=== PATIENT | female | born 1955 | race Asian ===

== ENCOUNTER → 2020-11-03 09:54 | Outpatient (BNVA) | payer MEDICARE, MEDICAID, SELFPAY | PROVIDERS: PCP Internal Medicine; Referring Provider Internal Medicine; Visit Provider Student in an Organized Health Care Education/Training Program | DX: M06.00 Rheumatoid arthritis without rheumatoid factor, unspecified site (principal); M81.0 Age-related osteoporosis without current pathological fracture; Z79.899 Other long term (current) drug therapy | CPT/HCPCS: 96402; 99212 ==

== ENCOUNTER 2021-01-17 10:36 | Outpatient (REF) | payer MEDICARE, SELFPAY ==
[2021-01-17 11:35] LABS: MANUAL DIFF FLAG NO
[2021-01-17 11:39] LABS: Basophils Percent Auto 0.6 % (0-2); Eosinophils Absolute Auto 0.1 X10*3/uL (0.0-0.4); Eosinophils Percent Auto 3.6 % (0-4); Hematocrit 38.9 % (37-47); Hemoglobin 12.8 g/dl (12.0-16.0); Imm Gran Abs Auto 0.01 X10*3/uL (0.00-0.03); Imm Gran Pct Auto 0.3 % (0.0-0.4); Lymphocytes Absolute Auto 0.8 X10*3/uL (1.2-4.9); Lymphocytes Percent Auto 23.7 % (20-40); Mean Corpuscular HGB Conc 32.9 g/dl (31.0-35.0); Mean Corpuscular Hemoglobin 33.6 pg (27.0-33.0); Mean Corpuscular Volume 102.1 fL (80-98); Monocytes Absolute Auto 0.4 X10*3/uL (0.1-1.2); Monocytes Percent Auto 10.8 % (2-11); Platelet Count 256 X10*3/uL (160-400); Red Blood Count 3.81 X10*6/uL (4.20-5.50); Red Cell Distribution Width 13.4 % (11.0-16.0); White Blood Count 3.3 X10*3/uL (4.8-10.8)
[2021-01-17 12:11] LABS: Alanine Aminotransferase 15 U/L (0-31); Albumin Level 4.6 g/dL (3.5-5.0); Alkaline Phosphatase 49 U/L (39-117); Anion Gap 10 (12-20); Aspartate Amino Transferase 22 U/L (5-31); Bilirubin Total 0.5 mg/dL (0.0-1.0); Blood Urea Nitrogen 15 mg/dL (9-16); C Reactive Protein 0.02 mg/dL (< or = 0.50); Calcium 9.2 mg/dL (8.4-10.2); Carbon Dioxide 29 mmol/L (22-29); Chloride 106 mmol/L (96-108); Estimated Glomerular Filt Rate > 60; Glucose Random 87 mg/dL (60-115); Potassium 4.5 mmol/L (3.3-5.1); Sodium 140 mmol/L (135-145); Total Protein 7.2 g/dL (6.5-8.0)
[2021-01-17 12:39] LABS: Erythrocyte Sedimentation Rate 12 MM/HR (0-20)
[2021-01-21 23:47] LABS: Vitamin D 25-OH, D2 <4 ng/mL; Vitamin D 25-OH, D3 31 ng/mL; Vitamin D 25-OH, Total 31 ng/mL (30-100)
== END 2021-01-17 10:37 | disposition home or self-care (01) ==
LOC: HO.LAB 10:36
PROVIDERS: PCP Internal Medicine; Visit Provider Student in an Organized Health Care Education/Training Program
DX: M06.00 Rheumatoid arthritis without rheumatoid factor, unspecified site (principal)
CPT/HCPCS: 36415; 80053; 82306; 85025; 85652; 86140

== ENCOUNTER → 2021-03-02 09:58 | Outpatient (BNVA) | payer MEDICARE, SELFPAY | PROVIDERS: PCP Internal Medicine; Visit Provider Student in an Organized Health Care Education/Training Program | DX: M06.00 Rheumatoid arthritis without rheumatoid factor, unspecified site (principal); M81.0 Age-related osteoporosis without current pathological fracture; Z79.899 Other long term (current) drug therapy | CPT/HCPCS: 99212 ==

== ENCOUNTER 2021-04-26 09:05 | Outpatient (REF) | payer MEDICARE, SELFPAY ==
--- NOTE | ~2021-04-26 | MM_ITS ---
EXAMINATION: BONE DENSITOMETRY CLINICAL INDICATION: Age-related osteoporosis without current pathological fracture. COMPARISON: Previous BD dated 04/16/2019 and baseline BD dated 03/25/2017. TECHNIQUE: Using a [employer] DXA System (software version: 13.1) manufactured by [employer], dual-energy x-ray absorptiometry was performed of the lumbar spine and left hip. The images are of good technical quality. Summary results are attached. FINDINGS: AP SPINE L1-L4: Current: BMD 0.792 g/cm2, Z-score -1.4, T-score -3.2, osteoporosis, 3.3% increase from previous, 9.4% increase from baseline (<5% change is not significant). Prior: BMD 0.767 g/cm2. Baseline: BMD 0.724 g/cm2. LEFT FEMUR, NECK: Current: BMD 0.765 g/cm2, Z-score -0.3, T-score -2.0, osteopenia. Prior: BMD 0.771 g/cm2. Baseline: BMD 0.669 g/cm2. LEFT FEMUR, TOTAL: Current: BMD 0.753 g/cm2, Z-score -0.6, T-score -2.0, osteopenia, 6.1% increase from previous, 6.8% increase from baseline (<5% change is not significant). Prior: BMD 0.710 g/cm2. Baseline: BMD 0.705 g/cm2. IDENTIFIED RISK FACTORS: Rheumatoid arthritis, osteoporosis, thiazide, menopause. HISTORY OF FRACTURE: None listed. MEDICATIONS: Prolia. MM/XR DEXA axial skeleton IMPRESSION: 1. DIAGNOSIS: Osteoporosis based on the lowest T-score value of -3.2 in the lumbar spine applying World Health Organization criteria. 2. 10-YEAR FRACTURE RISK PREDICTION, FRAX: Major osteoporotic fracture (clinical spine, forearm, hip or shoulder) 7.5%. Hip fracture 1.3%. 3. Treatment Recommendations: NOF guidelines recommend consideration for treatment in postmenopausal women and men age 50 and older presenting with the following: -A hip or vertebral (clinical or morphometric) fracture. -T-score less than or equal to -2.5 at the femoral neck or spine after appropriate evaluation to exclude secondary causes. -Low bone mass at the hip or spine and a 10-year fracture probability by FRAX of greater than or equal to 3% for hip fracture or greater than or equal to 20% for major osteoporotic fracture based on the [place] adapted WHO algorithm. 4. Other Recommendations: All treatment decisions require clinical judgment and consideration of individual patient factors, including patient preferences, comorbidities, previous drug use, risk factors not captured in the FRAX model (e.g. frailty, falls, vitamin D deficiency, increased bone turnover, interval significant decline in bone density) and possible under or overestimation of fracture risk by FRAX. Additional medical evaluation for secondary cause of low bone mineral density may be appropriate. FUTURE SCAN RECOMMENDATION: People with diagnosed cases of osteoporosis or at high risk for fracture should have regular bone mineral density tests. For patients eligible for Medicare, routine testing is allowed once every 2 years. The testing frequency can be increased to one year for patients who have rapidly progressing disease, those who are receiving or discontinuing medical therapy to restore bone mass, or have additional risk factors.
== END 2021-04-26 09:06 | disposition home or self-care (01) ==
LOC: HO.MAMMO 09:05
PROVIDERS: Visit Provider Student in an Organized Health Care Education/Training Program
DX: Z13.820 Encounter for screening for osteoporosis (principal); M81.0 Age-related osteoporosis without current pathological fracture; M06.9 Rheumatoid arthritis, unspecified; Z78.0 Asymptomatic menopausal state; Z79.899 Other long term (current) drug therapy
CPT/HCPCS: 77080

== ENCOUNTER 2021-05-25 13:29 | Outpatient (REF) | payer MEDICARE, SELFPAY ==
[2021-05-25 14:34] LABS: MANUAL DIFF FLAG NO
[2021-05-25 14:38] LABS: Basophils Percent Auto 0.5 % (0-2); Eosinophils Absolute Auto 0.2 X10*3/uL (0.0-0.4); Eosinophils Percent Auto 4.2 % (0-4); Hematocrit 37.9 % (37-47); Hemoglobin 12.4 g/dl (12.0-16.0); Imm Gran Abs Auto 0.01 X10*3/uL (0.00-0.03); Imm Gran Pct Auto 0.2 % (0.0-0.4); Lymphocytes Percent Auto 25.1 % (20-40); Mean Corpuscular HGB Conc 32.7 g/dl (31.0-35.0); Mean Corpuscular Hemoglobin 32.8 pg (27.0-33.0); Mean Corpuscular Volume 100.3 fL (80-98); Mean Platelet Volume 9.2 fL (9.4-12.3); Monocytes Absolute Auto 0.4 X10*3/uL (0.1-1.2); Monocytes Percent Auto 9.4 % (2-11); Neutrophils Absolute Auto 2.4 X10*3/uL (2.0-8.3); Neutrophils Percent Auto 60.6 % (45-73); Platelet Count 222 X10*3/uL (160-400); Red Blood Count 3.78 X10*6/uL (4.20-5.50)
[2021-05-25 15:04] LABS: Alanine Aminotransferase 14 U/L (0-31); Albumin Level 4.4 g/dL (3.5-5.0); Alkaline Phosphatase 51 U/L (39-117); Anion Gap 10 (12-20); Aspartate Amino Transferase 27 U/L (5-31); Bilirubin Total 0.4 mg/dL (0.0-1.0); Blood Urea Nitrogen 13 mg/dL (9-16); C Reactive Protein 0.03 mg/dL (< or = 0.50); Calcium 9.7 mg/dL (8.4-10.2); Carbon Dioxide 28 mmol/L (22-29); Chloride 107 mmol/L (96-108); Estimated Glomerular Filt Rate > 60; Glucose Random 96 mg/dL (60-115); Potassium 4.4 mmol/L (3.3-5.1); Sodium 141 mmol/L (135-145)
== END 2021-05-25 13:30 | disposition home or self-care (01) ==
LOC: HO.LAB 13:29
PROVIDERS: PCP Internal Medicine; Visit Provider Student in an Organized Health Care Education/Training Program
DX: M06.00 Rheumatoid arthritis without rheumatoid factor, unspecified site (principal)
CPT/HCPCS: 36415; 80053; 85025; 86140

== ENCOUNTER → 2021-06-01 10:06 | Outpatient (BNVA) | payer MEDICARE, SELFPAY | PROVIDERS: PCP Internal Medicine; Visit Provider Student in an Organized Health Care Education/Training Program | DX: M06.00 Rheumatoid arthritis without rheumatoid factor, unspecified site (principal); M81.0 Age-related osteoporosis without current pathological fracture; Z79.899 Other long term (current) drug therapy | CPT/HCPCS: 96372; 99212 ==

== ENCOUNTER 2021-10-05 13:03 | Outpatient (REF) | payer MEDICARE, SELFPAY ==
[2021-10-05 14:25] LABS: Appearance Urine CLEAR; Color Urine YELLOW; Glucose Urine UA NEG (NEG); Leukocyte Esterase Urine NEG (NEG); Nitrite Urine NEG (NEG); Specific Gravity - Urine >= 1.030 (1.005-1.025); Urine Blood NEG (NEG); Urine Ketones NEG (NEG); Urine Protein NEG (NEG-TRACE)
[2021-10-05 14:32] LABS: Alanine Aminotransferase 17 U/L (0-31); Albumin Level 4.3 g/dL (3.5-5.0); Alkaline Phosphatase 57 U/L (39-117); Anion Gap 11 (12-20); Aspartate Amino Transferase 25 U/L (5-31); Bilirubin Total 0.4 mg/dL (0.0-1.0); Blood Urea Nitrogen 17 mg/dL (9-16); C Reactive Protein 0.31 mg/dL (< or = 0.50); Calcium 8.8 mg/dL (8.4-10.2); Carbon Dioxide 26 mmol/L (22-29); Chloride 110 mmol/L (96-108); Estimated Glomerular Filt Rate > 60; Glucose Random 110 mg/dL (60-115); Potassium 4.2 mmol/L (3.3-5.1); Sodium 143 mmol/L (135-145)
[2021-10-05 14:43] LABS: Erythrocyte Sedimentation Rate 16 MM/HR (0-20)
== END 2021-10-05 13:04 | disposition home or self-care (01) ==
LOC: HO.LAB 13:03
PROVIDERS: PCP Internal Medicine; Visit Provider Nurse Practitioner Family
DX: M06.00 Rheumatoid arthritis without rheumatoid factor, unspecified site (principal); R79.82 Elevated C-reactive protein (CRP)
CPT/HCPCS: 36415; 80053; 81003; 85652; 86140

== ENCOUNTER → 2021-10-12 11:16 | Outpatient (BNVA) | payer MEDICARE, SELFPAY | PROVIDERS: PCP Internal Medicine; Visit Provider Nurse Practitioner Family | DX: M06.00 Rheumatoid arthritis without rheumatoid factor, unspecified site (principal); M81.0 Age-related osteoporosis without current pathological fracture; Z79.899 Other long term (current) drug therapy | CPT/HCPCS: 99212 ==

== ENCOUNTER → 2021-12-14 09:53 | Outpatient (BNVA) | payer MEDICARE, SELFPAY | PROVIDERS: PCP Internal Medicine; Visit Provider Nurse Practitioner Family | DX: M81.0 Age-related osteoporosis without current pathological fracture (principal) | CPT/HCPCS: 96372 ==

== ENCOUNTER → 2022-04-17 08:53 | Outpatient (BNVA) | payer MEDICARE, SELFPAY | PROVIDERS: PCP Internal Medicine; Visit Provider Nurse Practitioner Family | DX: M06.00 Rheumatoid arthritis without rheumatoid factor, unspecified site (principal); M81.0 Age-related osteoporosis without current pathological fracture; Z79.899 Other long term (current) drug therapy | CPT/HCPCS: 99212 ==

== ENCOUNTER → 2022-11-19 09:24 | Outpatient (BNVA) | payer MEDICARE, SELFPAY | PROVIDERS: Visit Provider Student in an Organized Health Care Education/Training Program | DX: M06.00 Rheumatoid arthritis without rheumatoid factor, unspecified site (principal); M81.0 Age-related osteoporosis without current pathological fracture; Z79.899 Other long term (current) drug therapy; Z71.85 Encounter for immunization safety counseling | CPT/HCPCS: 99212 ==

== ENCOUNTER → 2022-12-30 09:48 | Outpatient (BNVA) | payer MEDICARE, SELFPAY | PROVIDERS: Visit Provider Student in an Organized Health Care Education/Training Program | DX: M81.0 Age-related osteoporosis without current pathological fracture (principal) | CPT/HCPCS: 96372; J0897 ==

== ENCOUNTER → 2023-05-02 10:53 | Outpatient (BNVA) | payer MEDICARE, SELFPAY | PROVIDERS: PCP Family Medicine; Visit Provider Student in an Organized Health Care Education/Training Program | DX: M06.00 Rheumatoid arthritis without rheumatoid factor, unspecified site (principal); M81.0 Age-related osteoporosis without current pathological fracture; Z71.85 Encounter for immunization safety counseling; Z79.899 Other long term (current) drug therapy | CPT/HCPCS: 99212 ==

== ENCOUNTER 2023-05-16 10:40 | Outpatient (REF) | payer MEDICARE, SELFPAY ==
--- NOTE | ~2023-05-16 | MM_ITS ---
EXAMINATION: BONE DENSITOMETRY CLINICAL INDICATION: Osteoporosis. COMPARISON: Previous BD dated 04/26/2021 and baseline BD dated 03/25/2017. TECHNIQUE: Using a [facility] DXA System (software version: 13.1) manufactured by [employer], dual-energy x-ray absorptiometry was performed of the lumbar spine and left hip. The images are of good technical quality. Summary results are attached. FINDINGS: AP SPINE L1-L3 (excluding L4): The data of L1-L4 has been changed to exclude the L4 vertebral body, because degenerative changes at this level may cause overestimation of lumbar spine density. Current: BMD 0.797 g/cm2, Z-score -1.2, T-score -3.1, osteoporosis, 7.7% increase from previous, 15.0% increase from baseline (<5% change is not significant). Prior: BMD 0.740 g/cm2. Baseline: BMD 0.693 g/cm2. LEFT FEMUR, NECK: Current: BMD 0.766 g/cm2, Z-score -0.2, T-score -2.0, osteopenia. Prior: BMD 0.765 g/cm2. Baseline: BMD 0.669 g/cm2. LEFT FEMUR, TOTAL: Current: BMD 0.747 g/cm2, Z-score -0.5, T-score -2.1, osteopenia, 0.8% decrease from previous, 6.0% increase from baseline (<5% change is not significant). Prior: BMD 0.753 g/cm2. Baseline: BMD 0.705 g/cm2. IDENTIFIED RISK FACTORS: Menopause, low calcium intake, osteoporosis, thiazide, rheumatoid arthritis. HISTORY OF FRACTURE: None listed. MEDICATIONS: Calcium supplements or multivitamin, vitamin D, Prolia. MM/XR DEXA axial skeleton IMPRESSION: 1. DIAGNOSIS: Osteoporosis based on the lowest T-score value of -3.1 in the lumbar spine applying World Health Organization criteria. 2. 10-YEAR FRACTURE RISK PREDICTION, FRAX: According to the guidelines, FRAX calculation should only be performed on patients in the osteopenia bone density category. Therefore, FRAX was not performed on this patient. 3. Treatment Recommendations: NOF guidelines recommend consideration for treatment in postmenopausal women and men age 50 and older presenting with the following: -A hip or vertebral (clinical or morphometric) fracture. -T-score less than or equal to -2.5 at the femoral neck or spine after appropriate evaluation to exclude secondary causes. -Low bone mass at the hip or spine and a 10-year fracture probability by FRAX of greater than or equal to 3% for hip fracture or greater than or equal to 20% for major osteoporotic fracture based on the [place] adapted WHO algorithm. 4. Other Recommendations: All treatment decisions require clinical judgment and consideration of individual patient factors, including patient preferences, comorbidities, previous drug use, risk factors not captured in the FRAX model (e.g. frailty, falls, vitamin D deficiency, increased bone turnover, interval significant decline in bone density) and possible under or overestimation of fracture risk by FRAX. Additional medical evaluation for secondary cause of low bone mineral density may be appropriate. FUTURE SCAN RECOMMENDATION: People with diagnosed cases of osteoporosis or at high risk for fracture should have regular bone mineral density tests. For patients eligible for Medicare, routine testing is allowed once every 2 years. The testing frequency can be increased to one year for patients who have rapidly progressing disease, those who are receiving or discontinuing medical therapy to restore bone mass, or have additional risk factors.
== END 2023-05-16 10:41 | disposition home or self-care (01) ==
LOC: HO.MAMMO 10:40
PROVIDERS: PCP Family Medicine; Visit Provider Student in an Organized Health Care Education/Training Program
DX: Z13.820 Encounter for screening for osteoporosis (principal); Z78.0 Asymptomatic menopausal state; M81.0 Age-related osteoporosis without current pathological fracture
CPT/HCPCS: 77080

== ENCOUNTER 2023-07-04 10:50 | Outpatient (AMB) | payer MEDICARE, SELFPAY ==
[2023-07-04 11:12] VITALS: BP 118/78; PULSE 77
--- NOTE | 2023-07-04 11:12 | AM.OFFVISNUR ---
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 Allergies No Known Allergies [No Known Allergies*] Allergy (Verified 07/04/23 11:14) Medication List - Last Reconciled 07/04/23 by Michelle Vizcarra RN ammonium lactate 12% 1 appl topical DAILY 15 days celecoxib 200 mg PO DAILY cetirizine (All Day Allergy (cetirizine)) 10 mg PO DAILY PRN 90 days cholecalciferol (vitamin D3) 25 mcg PO DAILY clotrimazole-betamethasone 1-0.05 % 1 appl topical BID 2 weeks denosumab (Prolia) 60 mg subcut [id number] denosumab (Prolia) 60 mg subcut [id number] fluocinonide 0.05% 1 appl topical BID 30 days folic acid 5 mg (5 x 1 mg) PO DAILY 30 days hydroxychloroquine 200 mg PO DAILY ketoconazole 2% 1 appl topical BID 30 days methotrexate sodium Take 8 tabs once weekly in total, split the dose to 4 tabs twice 12-24 hours apart omeprazole 20 mg PO DAILY 90 days Nursing Note Patient here for continue Prolia therapy. Patient gave consent, vitals WNL, and denied any new allergies. Patient was given Prolia on left arm, pt tolerated it well. Office Meds Prolia Performing Provider: Paolo Keys MD Administered by: Michelle Vizcarra RN on 07/04/23 11:19 Dose Route Admin Location Lot Number Expiration Date NDC Rebar Fabricator 60 mg subcut left arm [id number] 07/31/25 48711-441-13 AMGEN Coding Level of Care Code Procedure Only Diagnoses Assessment & Plan Assessment & Plan Orders: Orders AMB Denosumab Injection Patient Supplied Today M81.0 - Age-related osteoporosis without current pathological fracture
== END 2023-07-04 11:58 | disposition home or self-care (01) ==
PROVIDERS: PCP Family Medicine; Visit Provider Student in an Organized Health Care Education/Training Program
DX: M81.0 Age-related osteoporosis without current pathological fracture (principal)
CPT/HCPCS: J0897

== ENCOUNTER → 2023-07-04 10:50 | Outpatient (BNVA) | payer MEDICARE, SELFPAY | PROVIDERS: PCP Family Medicine; Visit Provider Student in an Organized Health Care Education/Training Program | DX: M81.0 Age-related osteoporosis without current pathological fracture (principal) | CPT/HCPCS: 96372; J0897 ==

== ENCOUNTER 2023-11-17 08:24 | Outpatient (AMB) | payer MEDICARE, SELFPAY ==
--- NOTE | 2023-11-17 08:25 | MHC.OFFVIS ---
Intake Vital Signs 11/17/23 08:26 Height 5 ft 2 in Weight 120 lb 2.431 oz BMI 22.0 BP 128/74 Blood Pressure Location Rt brachial Position Sitting Pulse 67 Pulse Source Pulse Oximeter Intake Visit Reasons: RA Intake Note: Pt last seen 05/02/23, presents today for follow up and test results. Last prolia was on 07/04/23. Health Technician Hearing Required: No Accompanied by: Self / Same As Patient Allergies No Known Allergies [No Known Allergies*] Allergy (Verified 11/17/23 08:27) Medication List - Last Reconciled 11/17/23 by Paolo Keys MD ammonium lactate 12% 1 appl topical DAILY 15 days celecoxib 200 mg PO DAILY cetirizine (All Day Allergy (cetirizine)) 10 mg PO DAILY PRN 90 days cholecalciferol (vitamin D3) 25 mcg PO DAILY clobetasol 0.05% 1 appl topical BID clotrimazole-betamethasone 1-0.05 % 1 appl topical BID 2 weeks denosumab (Prolia) 60 mg subcut [id number] denosumab (Prolia) 60 mg subcut [id number] fluocinonide 0.05% 1 appl topical BID 30 days folic acid 5 mg (5 x 1 mg) PO DAILY 30 days hydroxychloroquine 200 mg PO DAILY ketoconazole 2% 1 appl topical BID 30 days methotrexate sodium 20 mg (8 x 2.5 mg) PO QWEEK omeprazole 20 mg PO DAILY 90 days HPI HPI Comments History of Present Illness Details 68-year-old female with seronegative RA and osteoporosis returns for follow-up. Doing well overall on methotrexate 20 mg weekly, folic acid 5 mg daily and hydroxychloroquine 200 mg daily. Uses Celebrex about every other day. She has no new complaints today Initial history: This is a 67-year-old female with a past medical history of seronegative RA and osteoporosis who presents for follow-up. Patient was followed up at a gym see Rheumatology but saw Dr. Dwyer once. She has been on methotrexate for many years and hydroxychloroquine. Patient states she is doing well overall. Continues to have some pain and stiffness of her wrists bilaterally with morning stiffness lasting 5-10 minutes. She takes Celebrex every day. Currently on methotrexate 6 tabs weekly and folic acid as well as hydroxychloroquine once daily. [facility] Medical History Macrocytosis Physical exam Hypovitaminosis D GERD (gastroesophageal reflux disease) Osteoporosis Seronegative rheumatoid arthritis Surgical History History of ear surgery Family History Father Medical history unknown Mother No problems noted. Brother No problems noted. Brother No problems noted. Sister No problems noted. Sister No problems noted. Sister No problems noted. Sister No problems noted. Son No problems noted. Daughter No problems noted. Social History Housing: House Alcohol intake: never Patient Tobacco Use Status: Never used Tobacco e-Cigarette/Vaping Use: Never Used Second Hand Smoke Exposure: No service: No Current occupational status: retired Cognitive needs: No Hearing needs: No Vision needs: No Review of Systems Card Denies dyspnea Resp Denies dyspnea Musc Denies arthralgias and Denies joint swelling Physical Exam Vital Signs: Last Vital Signs Pulse 67 11/17/23 08:26 BP 128/74 11/17/23 08:26 BMI result Body Mass Index 22.0 Const General: cooperative, healthy appearing, comfortable and no acute distress Nutritional Appearance: average body habitus Orientation/consciousness: patient oriented x3 Limitations: no limitations HEENT Head: Yes normocephalic and Yes atraumatic Mouth: moist mucous membranes Resp Effort & Inspection: normal respiratory effort and able to speak in complete sentences Auscultation: clear to auscultation bilaterally Cardio Rate: regular rate Rhythm: regular rhythm Heart sounds: S1 normal heart sound present and S2 normal heart sound present GI Inspection: No distended Palpation (GI): Soft to palpation and nontender Neuro General: patient oriented x3 Extrem Other: Multiple chronic RA and OA deformities Right hand: Prominent ulnar styloid with piano rincon sign, significant stiffness of right wrist with flexion and extension, osteoarthritic changes of right hand with swan-neck deformities No tender joints in the right hand and wrist Left hand prominent ulnar styloid and significant wrist stiffness with flexion and extension Left 2nd and 3rd MCP synovial thickening with no tenderness No PIP swelling or tenderness Normal range of motion of elbows and shoulders Results Reviewed Results Reviewed: 05/2022? QuantiFERON gold negative? Twenty-five hydroxy vitamin-D 37 (3-60) CBC unremarkable except for MCV 102.6? Normal hemoglobin, normal platelets, WBC CMP normal except for AST 45(0-37) ALT normal CRP normal Bilateral hand and wrist x-rays 2020 FINDINGS: RIGHT HAND/WRIST: Advanced osteoarthritic changes in the wrist are again noted involving intercarpal joints, distal radioulnar joint and radiocarpal joints with narrowing of the joint spaces, sclerotic and lucent changes/erosions. Irregularity and flattening of the radial and ulnar articular surfaces is noted. [id number] arthritic changes are noted at the carpometacarpal joints. Probable chronic-appearing erosions are noted at the bases of 2nd and 3rd metacarpals. Mild degenerative changes are noted at the 1st interphalangeal joint. Otherwise there is no evidence of significant joint space narrowing, periarticular osteopenia or erosions involving MCP joints and interphalangeal joints. No soft tissue calcifications. LEFT HAND/WRIST: Severe arthritic changes are noted at the intercarpal joints, radiocarpal joint and distal radioulnar joint as well as carpometacarpal joints with narrowing of the joint space, sclerosis and erosions and osteophytes. Note is again made of focal erosions at the bases of the 2nd and 3rd metacarpals. There is no evidence of joint space narrowing, periarticular osteopenia or erosions at the MCP joints and interphalangeal joints. No soft tissue calcifications. There might be partial fusion of the distal radius and lunate LEFT FOOT AND LEFT ANKLE: Hallux valgus is again noted with associated mild osteoarthritic changes. Erosions involving the 2nd, 3rd, and 5th metatarsal heads as well as the base of the 3rd proximal phalanx are again noted. Note is again made of narrowing of the 3rd MTP joint. The appearance of the 2nd MTP joint with mild narrowing of the joint space and lucency/erosions at the base of the 2nd proximal phalanx are again noted. Mild plantar subluxation at the 3rd MTP joint is redemonstrated. There is mild medial subluxation at the 5th MTP joint. Lucency/cystic change in the lateral cuneiform is redemonstrated. Accessory navicular is redemonstrated. Ankle mortise is intact. Mild sclerosis is noted along the talar dome articular surface medially with probable tiny subchondral cyst/erosion. Small osteophytes are noted from the medial and lateral malleoli. RIGHT FOOT AND RIGHT ANKLE: Narrowing of the 3rd MTP joint with a small cyst/erosion at the base of the proximal phalanx is again noted, without significant interval change compared to previous studies. Mild narrowing of the 5th MTP joint with mild medial subluxation of the 5th Assessment & Plan Assessment & Plan (1) Seronegative rheumatoid arthritis: Comment: MTX increased from 15 to 20 mg 10/2022 Code(s): M06.00 - Rheumatoid arthritis without rheumatoid factor, unspecified site Plan: 68-year-old female with seronegative erosive RA diagnosed many years ago returns for follow-up. On methotrexate 20 mg weekly, hydroxychloroquine 200 mg daily and folic acid 5 mg daily Continue methotrexate to 20 mg weekly split. Continue folic acid 5 mg daily. Will add Leucovorin 5 mg weekly due to macrocytosis. Take day after she takes methotrexate Continue hydroxychloroquine 200 mg daily Advised patient to use the Celebrex only as needed Infectious screening: T spot negative 10/2023 Hepatitis-B and C serologies negative Hepatitis A IgM positive. Unclear cause. Patient had no illnesses at that time. No transaminitis, no bilirubinemia. No sick contacts or vaccinations. Safety labs in 3 months and in 6 months Follow-up in 6 months (2) Osteoporosis: Code(s): M81.0 - Age-related osteoporosis without current pathological fracture Qualifiers: Osteoporosis type: age-related Presence of current pathological fracture: without current pathological fracture Qualified Code(s): M81.0 - Age-related osteoporosis without current pathological fracture Plan: Bone density scan in 03/2021 showed lowest T-score-3.2 lumbar spine. Repeat DEXA 05/2023 with T-score-3.1 at the L-spine. 7.7% increase in bone density. Bone density is otherwise stable. Had been on Prolia since 2017. Last Prolia dose was 07/2023. Next dose 01/2023. 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 Will monitor patient for side effects with frequent lab work. Advised patient to take folic acid daily to prevent complications of methotrexate. Some microcytosis with increased methotrexate dose. Will check an SPEP and immunofixation. Continue folic acid 5 mg daily Side effects of hydroxychloroquine were also discussed with patient. Patient follows up with Ophthalmology every year. Last visit was 08/23. No signs of Plaquenil toxicity. Follow-up with Ophthalmology regularly Plan I spent 30 minutes reviewing patient's chart, evaluating patient, ordering diagnostic workup, counseling patient and documenting in the chart Orders: Orders Complete Blood Count Auto Diff 6 Months Z79.89 - Other joint terminal attack controller (current) drug therapy Comprehensive Met. Panel 6 Months Z79.89 - Other shelter (current) drug therapy C Reactive Protein 6 Months Z79.89 - Other joint terminal attack controller (current) drug therapy Complete Blood Count Auto Diff 3 Months Z79.89 - Other joint terminal attack controller (current) drug therapy Comprehensive Met. Panel 3 Months Z79. - Other shelter (current) drug therapy C Reactive Protein 3 Months Z79.89 - Other joint terminal attack controller (current) drug therapy Erythrocyte Sedimentation Rate 3 Months Z79.89 - Other joint terminal attack controller (current) drug therapy Erythrocyte Sedimentation Rate 6 Months Z79.89 - Other joint terminal attack controller (current) drug therapy Medications: New leucovorin calcium take the day after you take methotrexate 5 mg PO QWEEK 12 tabs 1RF Refilled methotrexate sodium 20 mg (8 x 2.5 mg) PO QWEEK 96 tabs 1RF M06.00 - Rheumatoid arthritis without rheumatoid factor, unspecified site folic acid 5 mg (5 x 1 mg) PO DAILY 30 days 450 tabs 1RF M06.00 - Rheumatoid arthritis without rheumatoid factor, unspecified site hydroxychloroquine 200 mg PO DAILY 90 tabs 1RF Coding Level of Care Code Est Pt Level 4 (87741) Diagnoses Seronegative rheumatoid arthritis M06.00 Age-related osteoporosis without current pathological fracture M81.0 Osteoporosis type: age-related Presence of current pathological fracture: without current pathological fracture manager terminal methotrexate user Z79.899
[2023-11-17 08:26] VITALS: BP 128/74; PULSE 67; BMI 22.0
== END 2023-11-17 08:50 | disposition home or self-care (01) ==
PROVIDERS: PCP Family Medicine; Visit Provider Student in an Organized Health Care Education/Training Program
DX: M06.00 Rheumatoid arthritis without rheumatoid factor, unspecified site (principal); M81.0 Age-related osteoporosis without current pathological fracture; Z79.899 Other long term (current) drug therapy
CPT/HCPCS: 99214

== ENCOUNTER → 2023-11-17 08:24 | Outpatient (BNVA) | payer MEDICARE, SELFPAY | PROVIDERS: PCP Family Medicine; Visit Provider Student in an Organized Health Care Education/Training Program | DX: M06.00 Rheumatoid arthritis without rheumatoid factor, unspecified site (principal); M81.0 Age-related osteoporosis without current pathological fracture; Z79.899 Other long term (current) drug therapy | CPT/HCPCS: 99212 ==

== ENCOUNTER 2024-01-09 09:59 | Outpatient (AMB) | payer MEDICARE, MEDICAID, SELFPAY ==
--- NOTE | 2024-01-09 10:16 | AM.OFFVISNUR ---
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 Allergies No Known Allergies [No Known Allergies*] Allergy (Verified 01/09/24 10:16) Medication List - Last Reconciled 01/09/24 by Michelle Vizcarra RN ammonium lactate 12% 1 appl topical DAILY 15 days celecoxib 200 mg PO DAILY cetirizine (All Day Allergy (cetirizine)) 10 mg PO DAILY PRN 90 days cholecalciferol (vitamin D3) 25 mcg PO DAILY clobetasol 0.05% 1 appl topical BID clotrimazole-betamethasone 1-0.05 % 1 appl topical BID 2 weeks denosumab (Prolia) 60 mg subcut [id number] fluocinonide 0.05% 1 appl topical BID 30 days folic acid 5 mg (5 x 1 mg) PO DAILY 30 days hydroxychloroquine 200 mg PO DAILY ketoconazole 2% 1 appl topical BID 30 days leucovorin calcium 5 mg PO QWEEK methotrexate sodium 20 mg (8 x 2.5 mg) PO QWEEK omeprazole 20 mg PO DAILY 90 days Nursing Note Patient here for continued Prolia therapy. Patient gave verbal consent to administer Prolia. I administered Prolia on left arm. She tolerated injection well. Patient reminded to get labs completed. 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
== END 2024-01-09 10:51 | disposition home or self-care (01) ==
PROVIDERS: PCP Family Medicine; Visit Provider Student in an Organized Health Care Education/Training Program
DX: M81.0 Age-related osteoporosis without current pathological fracture (principal)

== ENCOUNTER → 2024-01-09 09:59 | Outpatient (BNVA) | payer MEDICARE, MEDICAID, SELFPAY | PROVIDERS: PCP Family Medicine; Visit Provider Student in an Organized Health Care Education/Training Program | DX: M81.0 Age-related osteoporosis without current pathological fracture (principal) | CPT/HCPCS: 96372; J0897 ==

== ENCOUNTER 2024-05-06 09:59 | Outpatient (AMB) | payer MEDICARE, MEDICAID, SELFPAY ==
[2024-05-06 10:22] VITALS: BP 118/62; PULSE 54; O2SAT 97; BMI 22.2
--- NOTE | 2024-05-06 10:22 | A.OFFVIS_ITS ---
Vital Signs 05/06/24 10:22 Height 5 ft 2 in Weight 121 lb 4.068 oz BMI 22.2 BP 118/62 Blood Pressure Location Rt brachial Position Sitting Pulse 54 Pulse Source Pulse Oximeter Pulse Oximetry (%) 97 Oxygen Delivery Method Room Air Intake Visit Reasons: RA/CM Delivery Clerk Required: No Accompanied by: Self / Same As Patient Allergies No Known Allergies [No Known Allergies*] Allergy (Verified 05/06/24 10:27) Medication List - Last Reconciled 05/06/24 by Paolo Keys MD ammonium lactate 12% 1 appl topical DAILY 15 days celecoxib 200 mg PO DAILY cetirizine (All Day Allergy (cetirizine)) 10 mg PO DAILY PRN 90 days cholecalciferol (vitamin D3) 25 mcg PO DAILY clobetasol 0.05% 1 appl topical BID clotrimazole-betamethasone 1-0.05 % 1 appl topical BID 2 weeks denosumab (Prolia) 60 mg subcut [id number] fluocinonide 0.05% 1 appl topical BID 30 days folic acid 5 mg (5 x 1 mg) PO DAILY 30 days hydroxychloroquine 200 mg PO DAILY ketoconazole 2% 1 appl topical BID 30 days leucovorin calcium 5 mg PO QWEEK methotrexate sodium 20 mg (8 x 2.5 mg) PO QWEEK omeprazole 20 mg PO DAILY 90 days HPI Comments Details: 68-year-old female with seronegative RA and osteoporosis returns for follow-up. Doing well overall on methotrexate 20 mg weekly, folic acid 5 mg daily and hydroxychloroquine 200 mg daily. Gets intermittent pain and stiffness of her hands but overall doing well. Takes Celebrex 3-4 days a week Initial history: This is a 67-year-old female with a past medical history of seronegative RA and osteoporosis who presents for follow-up. Patient was followed up at a gym see Rheumatology but saw Dr. Dwyer once. She has been on methotrexate for many years and hydroxychloroquine. Patient states she is doing well overall. Continues to have some pain and stiffness of her wrists bilaterally with morning stiffness lasting 5-10 minutes. She takes Celebrex every day. Currently on methotrexate 6 tabs weekly and folic acid as well as hydroxychloroquine once daily. [facility] Medical History Macrocytosis Physical exam Hypovitaminosis D GERD (gastroesophageal reflux disease) Osteoporosis Seronegative rheumatoid arthritis Surgical History History of ear surgery Family History Father Medical history unknown Mother No problems noted. Brother No problems noted. Brother No problems noted. Sister No problems noted. Sister No problems noted. Sister No problems noted. Sister No problems noted. Son No problems noted. Daughter No problems noted. Social History Housing: House Alcohol intake: never Patient Tobacco Use Status: Never used Tobacco e-Cigarette/Vaping Use: Never Used Second Hand Smoke Exposure: No service: No Current occupational status: retired Cognitive needs: No Hearing needs: No Vision needs: No Review of Systems Card Denies dyspnea Resp Denies dyspnea Musc Denies arthralgias and Denies joint swelling Physical Exam Vital Signs: Last Vital Signs Pulse 54 05/06/24 10:22 BP 118/62 05/06/24 10:22 Pulse Ox 97 05/06/24 10:22 Oxygen Delivery Method Room Air 05/06/24 10:22 BMI result Body Mass Index 22.2 Const General: cooperative, healthy appearing, comfortable and no acute distress Nutritional Appearance: average body habitus Orientation/consciousness: patient oriented x3 Limitations: no limitations HEENT Head: Yes normocephalic and Yes atraumatic Mouth: moist mucous membranes Resp Effort & Inspection: normal respiratory effort and able to speak in complete sentences Auscultation: clear to auscultation bilaterally Cardio Rate: regular rate Rhythm: regular rhythm Heart sounds: S1 normal heart sound present and S2 normal heart sound present GI Inspection: No distended Palpation (GI): Soft to palpation and nontender Neuro General: patient oriented x3 Extrem Other: Multiple chronic RA and OA deformities Right hand: Prominent ulnar styloid with piano rincon sign, significant stiffness of right wrist with flexion and extension, osteoarthritic changes of right hand with swan-neck deformities No tender joints in the right hand and wrist Left hand prominent ulnar styloid and significant wrist stiffness with flexion and extension Left 2nd and 3rd MCP synovial thickening with no tenderness No PIP swelling or tenderness Normal range of motion of elbows and shoulders Results Reviewed Results Reviewed: 05/2022? QuantiFERON gold negative? Twenty-five hydroxy vitamin-D 37 (3-60) CBC unremarkable except for MCV 102.6? Normal hemoglobin, normal platelets, WBC CMP normal except for AST 45(0-37) ALT normal CRP normal Bilateral hand and wrist x-rays 2020 FINDINGS: RIGHT HAND/WRIST: Advanced osteoarthritic changes in the wrist are again noted involving intercarpal joints, distal radioulnar joint and radiocarpal joints with narrowing of the joint spaces, sclerotic and lucent changes/erosions. Irregularity and flattening of the radial and ulnar articular surfaces is noted. [id number] arthritic changes are noted at the carpometacarpal joints. Probable chronic-appearing erosions are noted at the bases of 2nd and 3rd metacarpals. Mild degenerative changes are noted at the 1st interphalangeal joint. Otherwise there is no evidence of significant joint space narrowing, periarticular osteopenia or erosions involving MCP joints and interphalangeal joints. No soft tissue calcifications. LEFT HAND/WRIST: Severe arthritic changes are noted at the intercarpal joints, radiocarpal joint and distal radioulnar joint as well as carpometacarpal joints with narrowing of the joint space, sclerosis and erosions and osteophytes. Note is again made of focal erosions at the bases of the 2nd and 3rd metacarpals. There is no evidence of joint space narrowing, periarticular osteopenia or erosions at the MCP joints and interphalangeal joints. No soft tissue calcifications. There might be partial fusion of the distal radius and lunate LEFT FOOT AND LEFT ANKLE: Hallux valgus is again noted with associated mild osteoarthritic changes. Erosions involving the 2nd, 3rd, and 5th metatarsal heads as well as the base of the 3rd proximal phalanx are again noted. Note is again made of narrowing of the 3rd MTP joint. The appearance of the 2nd MTP joint with mild narrowing of the joint space and lucency/erosions at the base of the 2nd proximal phalanx are again noted. Mild plantar subluxation at the 3rd MTP joint is redemonstrated. There is mild medial subluxation at the 5th MTP joint. Lucency/cystic change in the lateral cuneiform is redemonstrated. Accessory navicular is redemonstrated. Ankle mortise is intact. Mild sclerosis is noted along the talar dome articular surface medially with probable tiny subchondral cyst/erosion. Small osteophytes are noted from the medial and lateral malleoli. RIGHT FOOT AND RIGHT ANKLE: Narrowing of the 3rd MTP joint with a small cyst/erosion at the base of the proximal phalanx is again noted, without significant interval change compared to previous studies. Mild narrowing of the 5th MTP joint with mild medial subluxation of the 5th Assessment & Plan Assessment & Plan (1) Seronegative rheumatoid arthritis: Comment: MTX increased from 15 to 20 mg 10/2022 Code(s): M06.00 - Rheumatoid arthritis without rheumatoid factor, unspecified site Category: Medical Plan: 68-year-old female with seronegative erosive RA returns for follow-up. On methotrexate 20 mg weekly, hydroxychloroquine 200 mg daily, folic acid 5 mg daily and Leucovorin 5 mg weekly Continue current meds Advised patient to use the Celebrex only as needed Infectious screening: T spot negative 10/2023 Hepatitis-B and C serologies negative Hepatitis A IgM positive. Unclear cause. Patient had no illnesses at that time. No transaminitis, no bilirubinemia. No sick contacts or vaccinations. Safety labs today. Patient will come for her Prolia injection 07/2024. Her following Prolia injection will be 01/2025. Labs for RA to be repeated for that visit in January (2) Osteoporosis: Code(s): M81.0 - Age-related osteoporosis without current pathological fracture Category: Medical Qualifiers: Osteoporosis type: age-related Presence of current pathological fracture: without current pathological fracture Qualified Code(s): M81.0 - Age- related osteoporosis without current pathological fracture Plan: Bone density scan in 03/2021 showed lowest T-score-3.2 lumbar spine. Repeat DEXA 05/2023 with T-score-3.1 at the L-spine. 7.7% increase in bone density. Bone density is otherwise stable. Had been on Prolia since 2017. Last Prolia dose was 01/2023. Next dose 07/2024 Check vitamin-D level before next visit. Plan to repeat DEXA in 2024 (3) USP methotrexate user: Code(s): Z79.899 - Other rat exterminator (current) drug therapy Category: Medical Plan: Monitor safety labs (4) Long-term use of hydroxychloroquine: Comment: Took hydroxychloroquine 200 mg Twice daily from a prox 200 mg daily since 2020 Eye exam okay 08/2023 Code(s): Z79.899 - Other rat exterminator (current) drug therapy Category: Medical Plan: Patient is aware of risk of retinopathy associated with hydroxychloroquine. Follows up regularly with instructor pilot Plan I spent 40 minutes reviewing patient's chart, evaluating patient, ordering diagnostic workup, counseling patient and documenting in the chart Orders: Orders Complete Blood Count Auto Diff 8 Months M06.00 - Rheumatoid arthritis without rheumatoid factor, unspecified site, Z79.899 - Other rat exterminator (current) drug therapy C Reactive Protein 8 Months M06.00 - Rheumatoid arthritis without rheumatoid factor, unspecified site, Z79.899 - Other rat exterminator (current) drug therapy Complete Blood Count Auto Diff Today M06.00 - Rheumatoid arthritis without rheumatoid factor, unspecified site, Z79.899 - Other rat exterminator (current) drug therapy Erythrocyte Sedimentation Rate Today M06.00 - Rheumatoid arthritis without rheumatoid factor, unspecified site, Z79.899 - Other penitentiary (current) drug therapy Comprehensive Met. Panel 8 Months M06.00 - Rheumatoid arthritis without rheumatoid factor, unspecified site, Z79.899 - Other penitentiary (current) drug therapy Erythrocyte Sedimentation Rate 8 Months M06.00 - Rheumatoid arthritis without rheumatoid factor, unspecified site, Z79.899 - Other rat exterminator (current) drug therapy Comprehensive Met. Panel Today M06.00 - Rheumatoid arthritis without rheumatoid factor, unspecified site, Z79.899 - Other rat exterminator (current) drug therapy C Reactive Protein Today M06.00 - Rheumatoid arthritis without rheumatoid factor, unspecified site, Z79.899 - Other rat exterminator (current) drug therapy Vitamin D 25-OH (D2 and D3) 6 Months E55.9 - Vitamin D deficiency, unspecified Coding Level of Care Code Est Pt Level 5 (04251) Complex EM visit Add On G2211 Diagnoses Seronegative rheumatoid arthritis M06.00 Age-related osteoporosis without current pathological fracture M81.0 Osteoporosis type: age-related Presence of current pathological fracture: without current pathological fracture predatory animal exterminator methotrexate user Z79.899 Long-term use of hydroxychloroquine Z79.899
== END 2024-05-06 10:53 | disposition home or self-care (01) ==
PROVIDERS: PCP Pediatrics; Visit Provider Student in an Organized Health Care Education/Training Program
DX: M06.09 Rheumatoid arthritis without rheumatoid factor, multiple sites (principal); M81.0 Age-related osteoporosis without current pathological fracture; Z79.899 Other long term (current) drug therapy
CPT/HCPCS: 99215; G2211

== ENCOUNTER 2024-05-06 11:10 | Outpatient (REF) | payer MEDICARE, MEDICAID, SELFPAY ==
[2024-05-06 13:22] LABS: MANUAL DIFF FLAG NO
[2024-05-06 13:37] LABS: Basophils Percent Auto 0.6 % (0-2); Eosinophils Absolute Auto 0.2 X10*3/uL (0.0-0.4); Eosinophils Percent Auto 4.5 % (0-4); Hemoglobin 12.2 g/dl (12.0-16.0); Lymphocytes Absolute Auto 0.6 X10*3/uL (1.2-4.9); Lymphocytes Percent Auto 17.2 % (20-40); Mean Corpuscular Hemoglobin 33.4 pg (27.0-33.0); Mean Corpuscular Volume 101.4 fL (80.0-98.0); Mean Platelet Volume 9.3 fL (9.4-12.3); Monocytes Absolute Auto 0.5 X10*3/uL (0.1-1.2); Monocytes Percent Auto 15.1 % (2-11); Neutrophils Absolute Auto 2.1 x10*3/uL (2.0-8.3); Neutrophils Percent Auto 62.6 % (45-73); Platelet Count 214 X10*3/uL (160-400); Red Blood Count 3.65 X10*6/uL (4.20-5.50); Red Cell Distribution Width 14.6 % (11.0-16.0); White Blood Count 3.4 X10*3/uL (4.8-10.8)
[2024-05-06 13:52] LABS: Alanine Aminotransferase 16 U/L (0-31); Albumin Level 4.4 g/dL (3.5-5.0); Alkaline Phosphatase 45 U/L (39-117); Anion Gap 7 (12-20); Aspartate Amino Transferase 26 U/L (5-31); Bilirubin Total 0.5 mg/dL (0.0-1.0); Blood Urea Nitrogen 13 mg/dL (9-16); C Reactive Protein < 0.04 mg/dL (< or = 0.50); Calcium 9.4 mg/dL (8.4-10.2); Carbon Dioxide 30 mmol/L (22-29); Chloride 110 mmol/L (96-108); Estimated Glomerular Filt Rate > 60; Glucose Random 88 mg/dL (60-115); Potassium 4.3 mmol/L (3.3-5.1); Sodium 143 mmol/L (135-145); Total Protein 7.3 g/dL (6.5-8.0)
[2024-05-06 14:20] LABS: Erythrocyte Sedimentation Rate 11 MM/HR (0-20)
== END 2024-05-06 11:11 | disposition home or self-care (01) ==
LOC: HO.10HDL 11:10
PROVIDERS: Referring Provider Pediatrics; Visit Provider Student in an Organized Health Care Education/Training Program
DX: M06.00 Rheumatoid arthritis without rheumatoid factor, unspecified site (principal); Z79.899 Other long term (current) drug therapy
CPT/HCPCS: 36415; 80053; 85025; 85652; 86140; 99212

== ENCOUNTER 2024-07-09 12:59 | Outpatient (REF) | payer MEDICARE, OTHER, SELFPAY ==
[2024-07-09 13:08] LABS: MANUAL DIFF FLAG NO
[2024-07-09 13:21] LABS: Basophils Percent Auto 0.6 % (0-2); Eosinophils Absolute Auto 0.2 X10*3/uL (0.0-0.4); Eosinophils Percent Auto 4.2 % (0-4); Hematocrit 37.9 % (37.0-47.0); Hemoglobin 12.9 g/dl (12.0-16.0); Imm Gran Abs Auto 0.01 X10*3/uL (0.00-0.03); Imm Gran Pct Auto 0.3 % (0.0-0.4); Lymphocytes Absolute Auto 1.1 X10*3/uL (1.2-4.9); Lymphocytes Percent Auto 30.6 % (20-40); Mean Corpuscular Hemoglobin 34.6 pg (27.0-33.0); Mean Corpuscular Volume 101.6 fL (80.0-98.0); Mean Platelet Volume 8.5 fL (9.4-12.3); Monocytes Absolute Auto 0.4 X10*3/uL (0.1-1.2); Monocytes Percent Auto 11.1 % (2-11); Neutrophils Absolute Auto 1.9 x10*3/uL (2.0-8.3); Neutrophils Percent Auto 53.2 % (45-73); Platelet Count 233 X10*3/uL (160-400); Red Blood Count 3.73 X10*6/uL (4.20-5.50); Red Cell Distribution Width 13.6 % (11.0-16.0); White Blood Count 3.6 X10*3/uL (4.8-10.8)
[2024-07-09 13:48] LABS: Alanine Aminotransferase 28 U/L (0-31); Albumin Level 4.5 g/dL (3.5-5.0); Alkaline Phosphatase 55 U/L (39-117); Anion Gap 9 (12-20); Aspartate Amino Transferase 35 U/L (5-31); Bilirubin Total 0.6 mg/dL (0.0-1.0); Blood Urea Nitrogen 9 mg/dL (9-16); Calcium 9.8 mg/dL (8.4-10.2); Carbon Dioxide 28 mmol/L (22-29); Chloride 107 mmol/L (96-108); Estimated Glomerular Filt Rate > 60; Glucose Random 90 mg/dL (60-115); Potassium 3.7 mmol/L (3.3-5.1); Sodium 140 mmol/L (135-145); Total Protein 7.7 g/dL (6.5-8.0)
[2024-07-09 14:03] LABS: Erythrocyte Sedimentation Rate 20 MM/HR (0-20)
[2024-07-12 12:03] LABS: Prot Elec - Albumin 4.3 g/dL (3.8-4.8); Prot Elec - Alpha1 0.3 g/dL (0.2-0.3); Prot Elec - Alpha2 0.6 g/dL (0.5-0.9); Prot Elec - Beta 1 0.5 g/dL (0.4-0.6); Prot Elec - Beta 2 0.4 g/dL (0.2-0.5); Prot Elec - Gamma 1.3 g/dL (0.8-1.7); Prot Elec - Total Protein 7.3 g/dL (6.1-8.1)
[2024-07-14 08:44] LABS: IgA 270 mg/dL (70-320); IgG 1475 mg/dL (600-1540); IgM 110 mg/dL (50-300)
== END 2024-07-09 13:00 | disposition home or self-care (01) ==
LOC: HO.LAB 12:59
PROVIDERS: PCP Pediatrics; Visit Provider Student in an Organized Health Care Education/Training Program
DX: D75.89 Other specified diseases of blood and blood-forming organs (principal); Z79.899 Other long term (current) drug therapy
CPT/HCPCS: 36415; 80053; 82784; 84165; 85025; 85652; 86140; 86334

== ENCOUNTER 2024-07-26 09:05 | Outpatient (AMB) | payer MEDICARE, MEDICAID, SELFPAY ==
--- NOTE | 2024-07-26 09:17 | AM.OFFVISNUR ---
Intake Visit Reasons: Osteoporosis/prolia inj Allergies No Known Allergies [No Known Allergies*] Allergy (Verified 05/06/24 10:27) Office Meds Prolia 60 mg/mL subcutaneous syringe Performing Provider: Paolo Keys MD Performing Location: [facility] Rhe[facility] Administered by: Yessica Sidhu RN on 07/26/24 09:17 Dose Route Admin Location Dispensed Lot Number Expiration Date NDC [employer]draulic [employer]om Operator 60 mg subcut Left upper arm 1 mL [id number] 01/28/27 81245-131-25 AM[facility] Comments: Consent form signed. Pt tolerated injection well. Pt denies any previous problems with injections. Assessment & Plan Assessment & Plan Orders: Orders AMB Denosumab Injection Patient Supplied Today M81.0 - Age-related osteoporosis without current pathological fracture Medications: New Prolia (denosumab) 60 mg subcut ONCE 1 mL 0RF NS M81.0 - Age-related osteoporosis without current pathological fracture
== END 2024-07-26 09:16 | disposition home or self-care (01) ==
PROVIDERS: PCP Pediatrics; Visit Provider Student in an Organized Health Care Education/Training Program
DX: M81.0 Age-related osteoporosis without current pathological fracture (principal)

== ENCOUNTER → 2024-07-26 09:05 | Outpatient (BNVA) | payer MEDICARE, MEDICAID, SELFPAY | PROVIDERS: PCP Pediatrics; Visit Provider Student in an Organized Health Care Education/Training Program | DX: M81.0 Age-related osteoporosis without current pathological fracture (principal) | CPT/HCPCS: 96372; J0897 ==

== ENCOUNTER 2024-11-03 09:20 | Outpatient (REF) | payer MEDICARE, MEDICAID, SELFPAY ==
[2024-11-03 10:51] LABS: MANUAL DIFF FLAG NO
[2024-11-03 11:02] LABS: Basophils Percent Auto 0.3 % (0-2); Eosinophils Absolute Auto 0.1 X10*3/uL (0.0-0.4); Eosinophils Percent Auto 3.6 % (0-4); Hematocrit 36.8 % (37.0-47.0); Hemoglobin 12.1 g/dl (12.0-16.0); Lymphocytes Absolute Auto 0.7 X10*3/uL (1.2-4.9); Lymphocytes Percent Auto 21.9 % (20-40); Mean Corpuscular HGB Conc 32.9 g/dl (31.0-35.0); Mean Corpuscular Hemoglobin 33.7 pg (27.0-33.0); Mean Corpuscular Volume 102.5 fL (80.0-98.0); Mean Platelet Volume 8.6 fL (9.4-12.3); Monocytes Absolute Auto 0.4 X10*3/uL (0.1-1.2); Neutrophils Absolute Auto 2.1 x10*3/uL (2.0-8.3); Neutrophils Percent Auto 62.2 % (45-73); Platelet Count 210 X10*3/uL (160-400); Red Blood Count 3.59 X10*6/uL (4.20-5.50); Red Cell Distribution Width 14.1 % (11.0-16.0); White Blood Count 3.3 X10*3/uL (4.8-10.8)
[2024-11-03 11:24] LABS: Alanine Aminotransferase 25 U/L (0-31); Albumin Level 4.2 g/dL (3.5-5.0); Alkaline Phosphatase 44 U/L (39-117); Anion Gap 9 (12-20); Aspartate Amino Transferase 36 U/L (5-31); Bilirubin Total 0.5 mg/dL (0.0-1.0); Blood Urea Nitrogen 10 mg/dL (9-16); C Reactive Protein < 0.04 mg/dL (< or = 0.50); Calcium 8.7 mg/dL (8.4-10.2); Carbon Dioxide 26 mmol/L (22-29); Chloride 110 mmol/L (96-108); Estimated Glomerular Filt Rate > 60; Glucose Random 93 mg/dL (60-115); Potassium 3.8 mmol/L (3.3-5.1); Sodium 141 mmol/L (135-145)
[2024-11-03 11:51] LABS: Erythrocyte Sedimentation Rate 9 MM/HR (0-20)
[2024-11-07 16:03] LABS: Vitamin D 25-OH, D2 <4 ng/mL; Vitamin D 25-OH, D3 23 ng/mL; Vitamin D 25-OH, Total 23 ng/mL (30-100)
== END 2024-11-03 09:21 | disposition home or self-care (01) ==
LOC: HO.10HDL 09:20
PROVIDERS: Visit Provider Student in an Organized Health Care Education/Training Program
DX: Z79.899 Other long term (current) drug therapy (principal); M06.00 Rheumatoid arthritis without rheumatoid factor, unspecified site; E55.9 Vitamin D deficiency, unspecified
CPT/HCPCS: 36415; 80053; 82306; 85025; 85652; 86140

== ENCOUNTER 2025-01-21 08:27 | Outpatient (REF) | payer MEDICAID, SELFPAY ==
--- OUTSIDE RECORDS SUMMARY | 2025-01-21 08:41 | XMS_ITS | Encounter Summary ---
Author Organization [employer] Address [address] [place] [address] Care Team Providers Care Medication Assistant Name Role Phone Unavailable Primary Care Provider Unavailabl e Reason for Visit * Reason Onset Date Comments appt/active request 11/01/2024 Encounter Details Date Type Department Care Team (Late st Contact Info) Description 11/01/[address] [facility] [address] [place] [address] August Alexandre, [place] [address] [place] [address] appt/active request Social History Tobacco Use Types Packs/Day Years Used Date Smoking Tobacco: Never Smokeless Tobacco: Never Alcohol Use Standard Drinks/Week Comments Never 0 (1 standard drink = 0.6 oz pur e alcohol) Comments Unknown Sex and Gender Information Value Date Recorded Sex Assigned at Female 08/18/2024 10:08 AM EDT Legal Sex Female 11:17 AM EDT Gender Identity Female 08/18/2024 10:08 AM EDT Sexual Orientation Straight 08/18/2024 10 :08 AM EDT documented as of this encounter Miscellaneous Notes * Telephone Encounter - Roshni Williamson - 11/08/2024 9:58 AM EST Patient called in again today. Any insight on appt. It is not active requested. * Telephone Encounter - Roshni Williamson - 11/01/2024 9:44 AM EST Piedad came in August. She is due for upper dentures from insurance but not the lower. She would like to have the appt scheduled. Appt not active requested. Can appt be scheduled? She would like a morning visit DR documented in this encounter Plan of Treatment Upcoming Encounters Date Type Department Care Team (Late st Contact Info) Description 01/21/2025 9:30 AM EST Office Visit [facility] [address], [place] [id number] August Alexandre, DMD [address] [place] [address] documented as of this encounter Visit Diagnoses Not on filedocumented in this encounter
--- OUTSIDE RECORDS SUMMARY | 2025-01-21 08:41 | XMS_ITS | Clinical Summary ---
Author Organization [employer] Address [address] [facility] [address] [facility] [address] [place] [address] Care Team Providers Care Correction Worker Name Role Phone Unavailable Primary Care Provider Unavailabl e Allergies Active Allergy Reactions Criticality Noted Date Comments Uhojapzdgea-Tltufznk-Lmhy Sulf 12/10 Medications celecoxib (CeleBREX) 200 MG capsule Take 1 capsule every day by oral route for 90 days. 1 Active cetirizine (ZyrTEC) 10 MG tablet Take 1 tablet by mouth Once per day. 4 Active Prolia 60 MG/ML solution prefilled syringe subcutaneous every 6 months 9 Active cycloSPORINE (Restasis) 0.05 % ophthalmic emulsion instill 1 drop in both eyes twice daily 4 Active eszopiclone (Lunesta) 1 MG tablet TAKE 1 TABLET BY MOUTH DAILY AT BEDTIME NEEDED FOR INSOMNIA Active folic acid (Folvite) 1 MG tablet 9 Active hydrocortisone 2.5 % cream APPLY TOPICALLY TO THE AFFECTED AREA TWICE DAILY APPLY IN A THIN LAYER TO THE AFFECTED SKIN AND. RUB IN GENTLY AND COMPLETELY 4 Active hydroxychloroqu ine (Plaquenil) 200 MG tablet Take 2 tablets every day by oral route. 1 Active leucovorin (Wellcovorin) 5 MG tablet 0 Refills, Maintenance, 01/29/24 8:30:00 EST, Partial fill upon patient request if the prescription is for a schedule II opioid drug. 4 Active methotrexate 2.5 MG tablet 2 Active omeprazole (PriLOSEC) [address] capsule Take 20 mg by mouth Once per day. 3 Active Active Problems No known active problems Encounters Date Type Department Care Team Description 12/17/2024 11:00 AM EST Office Visit [facility] [address] [place] [address] August Alexandre DMD 12/10/2024 10:00 AM EST Office Visit [facility] [address] [place] [address] August Alexandre DMD 11/18/2024 Telephone [facility] [address] [place] [address] Eliud [place] 11/01/2024 Telephone [facility] [address] [place] [address] August Alexandre DMD appt/active request from Last 3 Months Social History Tobacco Use Types Packs/Day Years Used Date Smoking Tobacco: Never Smokeless Tobacco: Never Tobacco Cessation:Counseling Given: Not Answered Alcohol Use Standard Drinks/Week Comments Never 0 (1 standard drink = 0.6 oz pur e alcohol) Comments Unknown Sex and Gender Information Value Date Recorded Sex Assigned at Female 08/18/2024 10:08 AM EDT Legal Sex Female 11:17 AM EDT Gender Identity Female 08/18/2024 10:08 AM EDT Sexual Orientation Straight 08/18/2024 10 :08 AM EDT Plan of Treatment Upcoming Encounters Date Type Department Care Team (Late st Contact Info) Description 01/21/2025 9:30 AM EST Office Visit [facility] [address] [place] [address] August Alexandre DMD [address] [place] [address] Health Maintenance Due Date Last Done Comments CT Colonography 1955 Colonoscopy 1955 Colorectal Cancer Screening 1955 Dental Prophylaxis 1955 Dental X-Ray: Bitewings 1955 Depression Screening 1955 FIT DNA/Cologuard 1955 FIT 1955 FOBT 1955 SDOH Screening 1955 Sigmoidoscopy 1955 Alcohol/Substance Use Screening 1967 Hepatitis C Screening 1973 Pneumococcal Vaccine: 50+ Years (1 of 1 - PCV) 2005 Zoster Vaccines (1 of 2) 2005 COVID-19 Vaccine (1 - 2023- season) 2024 Influenza Vaccine (#1) 2024 7, 11/05/2016, 09/18/2015, Additional history exists Dental Oral Exam 03/08/2025 09/06/2024 Tobacco Screening 12/17/2025 12/17/2024 Mammogram 03/08/2026 03/08/2024, 03/12/2022, 02/21/2022, Additional history exists Dental X-Ray: Full Mouth 09/07/2027 09/06/2024 RSV Patients and Patients Aged 60 years or older (1 - 1-dose 75+ series) 2030 DTaP/Tdap/Td Vaccines (4 - Td or Tdap) 01/28/2034 01/29/2024, 05/07/2016, 07/02/2010 HIB Vaccines Aged Out No longer eligi ble based on patient's age to complete this topic HPV Vaccines Aged Out No longer eligi ble based on patient's age to complete this topic Hepatitis A Vaccines Aged Out No long er eligible based on patient's age to complete this topic Hepatitis B Vaccines Aged Out No long er eligible based on patient's age to complete this topic IPV Vaccines Aged Out No longer eligi ble based on patient's age to complete this topic Meningococcal Vaccine Aged Out No erasmo celeste eligible based on patient's age to complete this topic RSV under 20 months Aged Out No longe r eligible based on patient's age to complete this topic Rotavirus Vaccines Aged Out No longer eligible based on patient's age to complete this topic Procedures Procedure Name Priority Date/Time Associated Diagnosis Comments DENTURE IMPRESSION Routine 12/17/2024 11 :00 AM EST BITE REGISTRATION Routine 12/17/2024 11: 00 AM EST DENTURE IMPRESSION Routine 12/10/2024 10 :00 AM EST PANORAMIC RADIOGRAPHIC IMAGE Routine 09/06/2024 10:30 AM EDT PERIODIC ORAL EVALUATION - ESTABLISHED PATIENT Routine 09/06/2024 10:30 AM EDT from Last 3 Months or Most Recently Relevant to Health Maintenance Insurance DENTAL - [facility]SN FULL (MEDICAID)
--- OUTSIDE RECORDS SUMMARY | 2025-01-21 08:41 | XMS_ITS | Data Portability ---
Author Organization [facility], , [facility] Address [address] [place] [address] Assessment Encounter Date Assessment Date Assessment LastModified by Organization Details LastModified Time 12/31/2016 12/31/2016 A: X-rays R shoulder revealed mild osteopenia and mild AC joint osteoarthropathy . Pt. still having a lot of pain at night and we discussed setting up an appt. to see Dr. Mast as an injection may be helpful. RC strengthening to be done in supine as scapular stabilization lessens significant joint crepitus. P: Cont. [email or web address] Not available 12/31/2016 10:39:40 01/08/2017 01/08/2017 X-rays of the right shoulder were personally reviewed with the patient demonstrating no OA or bony injury Not available 01/08/2017 09:47:55 Plan of Treatment Reminders Order Date Submit Date Provider Last Modified By Organization Details Last Modified Time Details Appointments None recorded. Lab None recorded. Referral None recorded. Procedures None recorded. Surgeries None recorded. Imaging None recorded. Medication Orders valacyclovi r 1 gram tablet 2017 018 tia [facility]/Pharmacy #[id number], [address] [place], [address], 8 10:33:16 Patient TargetsNo targets recorded. Patient Instructions Encounter Date Encounter Id Patient Instructions Last Modified By Organization Details Last Modified Time 01/07/2017 [id number] After a discussion of treatment and medication options, which included consideration of the best practices in medicine, a medical plan was provided. The patient's opinions and concerns were included in this treatment plan and goal. 1. TSH back to normal, will recheck every year at the [facility] 2. call me if you need any pain meds for your shoulder. dejan Not available 01/07/2017 10:15:06 01/08/2017 [id number] Rest and ice for the next week Avoid any heavy lifting for 2 weeks Restart physical therapy in approximately 7-10 days Follow-up in 4 weeks for a recheck if still having pain Follow-up with your rhemuatologist Seek immediate attention for any redness, fevers, chills, worsening or severe pain, or any other concerning symptoms. Not available 01/08/2017 11:14:09 01/13/2018 [id number] well visit, wome n 50 to 65: care instructions dejan Not available 01/13/2018 10:15:30 After a discussion of treatment and medication options, which included consideration of the best practices in medicine, a medical plan was provided. The patient's opinions and concerns were included in this treatment plan and goal. 1. maintain 1200 mg of calcium from food sources daily, 2. take vitamin D 800-1000 units daily to help absorption of calcium into your bones 3. use sunblock consistently 4. review the website: [email or web address] to get more information on the Mediterranean diet - a heart healthy eating plan 5. discussed labs - sugar and kidney function normal from Dr Amador Oct 2017 6. immunizations up to date - please ask Dr Amador if you can get the shingles vaccine. Pt will be seeing her in March 2018. 7. discussed cholesterol: from 2015 and all normal, low LDL and high HDL 8. try to do moderate aerobic physical activity about 30 min each day. Walking at a moderately fast pace, as tolerated. Try to build muscle mass. This will help maintain bone strength and support your joints. 9. colonoscopy is up to date. due in 2023 10. pap smear is up to date, due in 2019. 11. mammogram guidelines discussed, mammogram is up to date - at [facility] , yearly. 12. your bone density showed osteoporosis, 2016 and is treated by Dr Amador, who also orders the bone density test in 1-2 yrs. 13. Health care proxy discussed and form completed. copy in chart 14. OAB - follows urologist in [place] - Dr Davila once a year. Well controlled with meds. 15. PHA in 1 year. Repeat TSH in 6 mos, still in range but high normal. 16. RA - follows motor home electrical foreman, Dr Amador, and well controlled with meds. dejan Not available 01/13/2018 19:29:19 Reason for Referral None Reported. Results Created Date Observation Date Name Description Value Unit Range Abnormal Flag Note LastModifiedBy Organization Detail LastModifiedTime 12/31/19 17 12/31/2016 TSH, serum or plasm a TSH 4.75 uIU/m L 0.50-6 .00 The Ameri can [employer] ge of Endoc rinol ogy and Ameri can Thyro id Assoc iatio n recom mend goal TSH value s betwe en 0.4-4 .0 mIU/m L. Not Available [address], [address], 12/31/2016 16:09:34 01/09/20 18 01/09/2018 TSH, serum or plasm a TSH 5.33 uIU/m L 0.50-6 .00 The [employer]i can [employer] ge [employer] Endoc rinol ogy and Ameri can Thyro id Assoc iatio n recom mend goal TSH value s betwe en 0.4-4 .0 mIU/m L. Not Available [address], [address], 01/09/2018 16:52:23 12/31/19 17 12/31/2016 XR, shoul penny OBSERV ATION: 3 views of the right should er were obtain ed on this 61-yea r-old with pain but no trauma histor y. At least mild osteop enia is presen t. No fractu re or disloc ation is seen. No suspic ious calciu m deposi tion is seen. No glenoh umeral osteoa rthrop athy is seen. Minima l acromi oclavi cular joint osteoa rthrop athy may be presen t. Impres franchesca: Minima l change s as above. Point [facility] servic e - [facility] Electr onical ly signed Sampson Lynne dpahne: Kee vivas MD [facility] (Imaging) [address] , [place], [address], 12/31/2016 16:47:45 04/01/20 17 03/25/2017 bone densi ty No observ ation record ed. [email or web address] lo Not Available 04/01/2017 14:58:24 11/28/20 17 11/28/2017 bi mammo gram scree melanie with tomos ynthe sis with CAD (bila teral ) COMPAR SHANNON: 2010 throug h 2015 Bilate ral 3-D tomosy nthesi s with 2-D recons tructi ons in the CC and MLO projec tion. Comput er-aid ed detect ion system also utiliz ed. No new mass, asymme try, sven ectura l distor tion or suspic ious calcif icatio ns have become appare nt on either side. IMPRES FRANCHESCA: No findin gs suspic ious for malign valencia are identi fied. In the absenc e of a worris ome palpab le abnorm ality, annual screen ing mammog paul is recomm ended. BI-RAD S CATEGO RY: 1 - Negati ve. DENSIT Y: The breast tissue is hetero geneou sly dense, an appear ance which lowers the sensit ivity of mammog paul. POS [id number] Electr onical ly Signed by: BRYN WILKINSON on 2016 4:04 PM Interp reted by: Bryn wilkinson MD Signed by: Bryn wilkinson MD Final result Id omkar/ dmo No worrie s or concer ns No family hx KHARMFrederick BAKER DEL CASTIL LO FLOR BAKER DEL CASTIL LO FLOR BAKER DEL CASTIL LO [email or web address] [facility] [address] [place] [address], [address], 12/07/2017 08:23:54 11/28/20 17 11/28/2017 MAMMO , scree melanie No observ ation record ed. [email or web address] [address], [address], 12/07/2017 08:23:54 Result Notes None recorded. Problems Name Problem SNOMED Code Status Onset Date Resolution Date Notes Provider Name and Address Organization Details Recorded Time Gastroeso phageal reflux disease 882966231 Active Leticia Shipman NP [address] [place] [address] [place], [address], [facility] 6 10:51:24 Foot callus 230156376 Active Leticia Shipman NP [address] [place], [place] [address] [place], [address], [facility] 6 10:51:24 Arthritis 2574173 Completed 11/05/2016 Removal Reason: revised Gerald Shelton MD [address] [place], [place] [address] [place], [address], [facility] 6 10:23:28 Increased frequency of urination 027507229 Completed 12/12/2018 Removal Reason: revised Gerald Shelton MD [address] [place], [place] [address] [place], [address], [facility] 9 07:24:52 Hypothyro idism 28731539 Active Leticia Shipman NP [address] [place], [place] [address] [place], [address], [facility] 6 10:45:01 Osteoporo sis 60004423 Active Leticia Shipman NP [address] [place], [place] [address] [place], [address], [facility] 6 10:51:24 Abdominal mass 761436113 Active Leticia Shipman NP [address] [place], [place] [address] [place], [address], [facility] 6 10:45:01 Vitamin D deficienc y 65997750 Active Leticia Shipman NP [address] [place] [address] [place], [address], [facility] 6 10:45:01 Rheumatoi d arthritis 92836967 Active 2015 Gerald Shelton MD [address] [place], [place] [address] [place], [address], [facility] 6 10:23:06 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 Procedures Surgical History Date Name Laterality Status Provider Name and Address Organization Details Recorded Time 7 US Guided Biceps Tendon Sheath Injection completed Good Mast MD [address] [place], [address], [facility] 01/08/2017 11:14:27 7 [address]: Therapeutic Exercise completed Ashley Sandoval Ms, PT [address] [place], [address], [facility] 12/31/2016 10:32:09 7 Treatment and Advice completed Ashley Sandoval Ms, PT [address] [place], [address], [facility] 12/31/2016 10:23:51 7 [address]: Therapeutic Exercise completed Ashley Sandoval Ms, PT [address] [place], [address], [facility] 12/24/2016 11:21:16 7 [address]: Manual Therapy completed Ashley Sandoval Ms, PT [address] [place], [address], [facility] 12/24/2016 11:22:43 7 Treatment and Advice completed Ashley Sandoval Ms, PT [address] [place], [address], [facility] 12/24/2016 11:25:02 7 Physical Activity Counselling completed Ashley Sandoval Ms, PT [address] [place], [address], [facility] 12/17/2016 11:08:01 7 [address]2002: PT Eval Low Complexity completed Ashley Sandoval Ms, PT [address] [place], [address], [facility] 12/17/2016 11:07:53 7 Treatment and Advice completed Ashley Sandoval Ms, PT [address] [place], [address], [facility] 12/17/2016 11:14:15 6 IV Therapy completed Jeanne Wills RN BSN [address] [place], [address], [facility] 04/19/2016 15:53:35 4 Colonoscopy completed Gerald Shelton MD [address] [place], [address], [facility] 11/07/2016 17:53:53 Imaging Results Imaging Date Name Status LastModified by Organization Details LastModified Time 12/31/2016 XR, shoulder completed [facility] (Im[facility]) [address], [place], [address], 12/31/2016 16:47:45 03/25/2017 bone density completed [facility] In[facility] mation not available 04/01/2017 14:58:24 11/28/2017 bi mammogram screening with tomosynthesis with CAD (bilateral) completed [facility] [address] [place] [address], [address], 12/07/2017 08:23:54 11/28/2017 MAMMO, screening completed [address], [address], 12/07/2017 08:23:54 Procedure Notes None recorded. Medical Equipment None Reported. Allergies No known drug allergies Medications Name Sig Start Date Stop Date Status Note LastModified by Organization Details LastModified Time Prescript ion - Prior Authoriza tion Request active Reclast Not Available Not Available Not Available celecoxib 200 mg capsule Take 1 capsule every day by oral route for 90 days. active Not Available Not Available No t Available acetamino phen 325 mg tablet 650mg by mouth with IV reclast once then 650mg by mouth every 4h as needed for pain 11/05 completed Not Available Not Available Not Available oxybutyni n chloride ER 15 mg tablet,ex tended release 24 hr Take 1 tablet twice a day by oral route. active was prescrib ed twice a day but only taking daily; rec bid as she awaits davila appt. TD Not Available Not Available Not Available ammonium lactate 12 % lotion Apply by topical route to affected areas twice a day as needed 01/07 completed Not Available Not Available Not Available cetirizin e 10 mg tablet TAKE 1 TABLET BY MOUTH DAILY active Not Available Not Available No t Available valacyclo vir 1 gram tablet Take 2 tablets every 12 hours by oral route for 1 day. active Not Available Not Available No t Available meloxicam 15 mg tablet active Not Available Not Available Not Available sucralfat e 1 gram tablet Take 1 tablet 4 times a day by oral route. active Not Available Not Available No t Available tramadol 50 mg tablet active Not Available Not Available Not Available methotrex ate sodium 2.5 mg tablet active Not Available Not Available Not Available pantopraz ole 40 mg tablet,de layed release Take 1 tablet every day by oral route. 2014 active Not Available Not Available Not Avai lable ranitidin e 150 mg tablet TAKE 1 TABLET BY MOUTH TWICE DAILY 04/10 completed Ranitidi ne Recall, pt. not taking Not Available Not Available Not Available docusate sodium 100 mg capsule TAKE 1 CAPSULE TWICE A DAY NEEDED. active Not Available Not Available No t Available omeprazol e 20 mg capsule,d elayed release Take 1 capsule every day by oral route. active Not Available Not Available No t Available folic acid 1 mg tablet active Not Available Not Available Not Available ammonium lactate 12 % topical cream APPLY TWICE A DAY ON FEET NEEDED active Not Available Not Available No t Available ranitidin e 150 mg capsule 04/10 completed Ranitidi ne Recall Not Available Not Available Not Available hydroxych loroquine 200 mg tablet Take 2 tablets every day by oral route. active Not Available Not Available No t Available Tylenol-C odeine #3 300 mg-30 mg tablet Take 1 tablet as needed by oral route at bedtime for 30 days. 01/13 completed Not Available Not Available Not Available estradiol 0.01% (0.1 mg/gram) vaginal cream active Not Available Not Available Not Available zolpidem 10 mg tablet active Not Available Not Available Not Available fluocinon remi 0.05 % topical cream APPLY TO THE AFFECTED AREA(S) BY TOPICAL ROUTE 2 TIMES PER DAY X 1-2 WEEKS ONLY active Not Available Not Available No t Available fluticaso ne propionat e 50 mcg/actua tion nasal spray,mya pension USE 1 SPRAY IN EACH NOSTRIL DAILY active Not Available Not Available No t Available nitrofura ntoin monohydra te/macroc rystals 100 mg capsule active Not Available Not Available Not Available lactulose 10 gram/15 mL oral solution active Not Available Not Available Not Available Vesicare 10 mg tablet active Not Available Not Available Not Available Alaway 0.025 % (0.035 %) eye drops INSTILL 1 DROP INTO AFFECTED EYE(S) BY OPHTHALM IC ROUTE 2 TIMES PER DAY 2014 active Not Available Not Available Not Avai lable Reclast 5 mg/100 mL intraveno us piggyback 5mg IV once over 30 min with normal saline solution 0.5L bolus 01/13 completed Not Available Not Available Not Available Prolia 60 mg/mL subcutane ous syringe subcutan eous every 6 months active Not Available Not Available No t Available Myrbetriq 50 mg tablet,ex tended release Take 1 tablet every day by oral route. active Not Available Not Available No t Available Caltrate plus D 600 mg (carbonat e)-20 mcg (800 unit) chewable tablet Take by oral route 1 tab twice a day 2014 active 1 tab PO QD Not Available Not Available Not Available Fluzone Quad 2017-(P F) 60 mcg(15 mcgx4)/0. 5 mL intramusc ular syringe active Not Available Not Available Not Available Vitals Date Recorded Body height Body weight Body mass index (BMI) Heart rate Systolic blood pressure Diastolic blood pressure Provider Name and Address Organization Details Last Updated DateTime 7 158.115 cm 73989.7 5 g 22.7 kg/m2 72 /min 116 mm[Hg] 78 mm[Hg] Teena Calvin [facility] 7 09:51:41 Date Recorded Body height Heart rate Systolic blood pressure Diastolic blood pressure Provider Name and Address Organization Details Last Updated DateTime 01/08/2017 158.115 cm 68 /min 110 mm[Hg] 78 mm[Hg] Berenice Bailon [facility] 01/08/2017 09:16:13 Date Recorded Body weight Body mass index (BMI) Body height Heart rate Systolic blood pressure Diastolic blood pressure Provider Name and Address Organization Details Last Updated DateTime 8 22939.9 6 g 22.4 kg/m2 158.12 cm 72 /min 120 mm[Hg] 78 mm[Hg] Teena Calvin, [facility] 8 09:58:21 Social History Question Answer Notes LastModified by Organizat ion Details LastModified Time Tobacco Smoking Status Never Smoker 04/19/2016 Jeanne Wills RN BSN [address] [place] [address], [address], [facility] 12/15/2015 13:30:46 What Is Your Level Of Alcohol Consumption? None 04/19/2016 [email or web address] Information not available 12/19/2014 Do You Wear A Helmet When Biking? No N/a [email or web address] Information not available 04/07/2015 How Much Tobacco Do You Chew? None Information not available 04/07/2015 What Type Of Diet Are You Following? REGULAR Information not available 04/07/2015 Which Illicit Or Recreational Drugs Have You Used? Denies 04/19/2016 Information not available 12/19/2014 Education 12 Information no t available 12/19/2014 Are There Any Guns Present In Your Home? No Information not available 12/19/2014 Live Alone Or With Others? Alone [place] Information not available 12/19/2014 Patient Has Health Care Proxy Signed And In Chart No Will Be Scottie [phone]; Form Given 01/13/2018 [email or web address] Information not available 10/29/2018 Marital Status Informatio n not available 12/19/2014 Mosquito Repellent Used Routinely Yes [email or web address] Information not available 04/07/2015 What Was The Date Of Your Most Recent Tobacco Screening? 01/13/2018 Information not available 06/23/2019 How Many Children Do You Have? 2 , 1 ; 1983 Scottie (girl); 1985 Gavino (boy); Live In [place] Information not available 12/19/2014 Seat Belts Used Routinely Yes Information not available 12/19/2014 Are You Sexually Active? No Information not available 12/19/2014 Smoke Alarm In Home Yes [email or web address] Information not available 04/07/2015 General Stress Level Medium [email or web address] Information not available 04/07/2015 Do You Use Sunscreen Routinely? Yes [email or web address] Information not available 04/07/2015 Sex: Unknown Functional Status None recorded. Mental Status None recorded. Family History Relationship Description Onset Age of this Age Resolved Age Notes LastModified by Organization Details LastModified Time Mother Arthritis [email or web address] Not available 05/07/2016 10:45:26 Father Stomach problem 45 [email or web address] Not available 2015 10:45:26 Sister Stomach problem [email or web address] Not available 2015 10:45:26 Sister Diabetes mellitus [email or web address] Not available 2015 10:45:26 Sister Obesity [email or web address] Not available 0 05/07/2016 10:45:26 Notes:No breast CA, no colon CA, no cervical.endometrial/ovarian - no CAD Medical History No medical history recorded. Gynecological History Statement/Question Response LMP Obstetrics History GPAL:G 0 P 0 0 0 0 Immunizations Vaccine Type Date Status Note Provider Nam e and Address Organization Details Recorded Time Influenza, split virus, quadrivalent, PF 5 completed Not Available [facility] 12/18/2019 02:20:10 Tdap 6 completed Not Available [facility] 12/18/2019 02:26:07 Influenza, split virus, quadrivalent, PF 6 completed Not Available [facility] 12/18/2019 02:25:05 influenza nasal, unspecified formulation 4 completed Yanet Gamboa M.D. [address] [place] [address], [address], [facility] 12/19/2014 12:06:42 Influenza, split virus, quadrivalent, PF 7 completed Not Available [facility] 12/18/2019 02:22:05 Past Encounters Encounter ID Performer Location Encounter Start Date Encounter Closed Date Diagnosis/Indication Diagnosis SNOMED-CT Code Diagnosis ICD10 Code Diagnosis Note [id number] Marissa Aparicio LPN , [facility], [address] [place] [address] 12/19/2014 11:14:54 12/19/2014 12:20:48 Gastroesophageal reflux disease 294655729 in past: total of omeprazole x 6 mo as of 12/2014: 3 mo of pantoprazo le sucralfate this combo helps will continue ppi for no more than 5 years get GI records for labs eval and egd and cscope Foot callus 906028687 am monium lactate lotion 12% bid helps as does a top steroid flucoinoid e 0.05% (?would consider tapering to lower dose and or changing to antifungal ) Arthritis 9854548 record s from [facility] requested not clear dx at thispoint but on Celebrex, plaquenil (10/2014 optho ok) lv 10/2014, seeing 01/2015 mostly wrists, toes Increased frequency of urination 936999058 4 times/nigh t every 2 hours during the day oxybutynin 30mg daily x 1 year was on prior med as well Hypothyroidism 29622267 need records per pt she is not on replacemen t Osteoporosis 43818919 st ates gets dexa q2 years states treatment x 1 dose only for her osteoporos is but stopped due to GERD by karel [id number] Susana Wood , [facility], [address] [place] [address] 02/06/2015 17:16:06 02/06/2015 17:46:51 Acute laryngitis 1152422 [id number] Kandace Gilbert CMA , [facility], [address] [place] [address] 04/07/2015 09:34:16 04/07/2015 10:52:18 Allergic rhinitis 48022181 struggling discussed supportive care nasal steroid helped in past zytec prn alalway prn Osteoporosis 44252401 st ates gets dexa q2 years states treatment x 1 dose only for her osteoporos is but stopped due to GERD by karel as of 03/2015 reclast injection getting records today encouraged ca/vit D and Colace prn Increased frequency of urination 962111266 4 times/nigh t every 2 hours during the day oxybutynin 30mg daily x 1 year, off as of 2014 davila visit f/up with uro as scheduled Hypothyroidism 50968608 resolved per pt per pt she is not on replacemen t will resume standard infreq tsh screening Gastroesop hageal reflux disease 408775360 in past: total of omeprazole x 6 mo as of 12/2014: 3 mo of pantoprazo le sucralfate this combo helps will continue ppi for no more than 5 years in past: total of omeprazole x 6 mo as of 12/2014: 3 mo of pantoprazo le sucralfate this combo helps will continue ppi for no more than 5 years cscope wnl, egd w/ chronic gastritis Arthritis 4976562 record s from [facility] requested not clear dx at thispoint but on Celebrex, plaquenil (10/2014 optho ok) mostly wrists, toes Foot callus 529084775 am monium lactate lotion 12% bid helps as does a top steroid flucoinoid e 0.05% this combo works for her will cont for now but low threshold for pods opinion Epidermoid cyst 040709082 59 yo F w/ limited [place] w/ likely scattered epidermoid cysts on R neck x 2 , L chest wall; breast border; per pt she would like them removed if possible; normal mammo 10/2014 [id number] Shasta Allen NP FP, [facility], [address] [place] [address] 09/05/2015 11:05:15 09/05/2015 13:39:10 Abdominal mass 861581415 R19.00 1 cm firm mobile mass RLQ approx. 3 lat and slightly above umb. [id number] Willa Qureshi , [facility], [address] [place] [address] 09/18/2015 13:49:22 09/19/2015 06:51:40 Screening for disorder 160630239 Z72.89 routine screening with labs Lipoma 67774838 D17.9 60 yo F Somali speaking woman ([place]ander reasonable ) uncomforta ble lipoma +/-sebaceo us cyst in R mid abd and wishing to get eval with gen surg for possible resection; pt to bring us report with her from 08/2015: Sonographi светлана, this palpable process represents a 9 x 4 x 6 mm complex cystic mass. This is seen in a subcutaneo us and slightly deeper location. I suspect that this represents a sebaceous cyst, especially in light of other sebaceous cysts likely present elsewhere. Other possibilit ies however certainly exist. Surroundin g this complex cystic mass is a larger echogenic process, which in combinatio n with the smaller cystic mass measures perhaps 2 x 1.3 x 1.5 cm in diameter. This feels quite soft and certainly may represent a lipoma. Bunion 013250686 M20.12 pt wishing for another referral to pods for orthotics vs surg recs, R foot great toe; told in past needs surg, 60 yo F parital [place]ander, Somali primary lang Active or passive immunization 603941591 Z23 Tdap prescripti on needed fro Medicare and [place] Osteoporosis 43493707 M8 1.0 states gets dexa q2 years w/ [facility] states treatment x 1 dose only for her osteoporos is but stopped due to GERD by vinson reclast injection every march re-est care w/ kassie sigifredo while pcp on leave encouraged ca/vit D and Colace prn and wt bearing exercise Gastroesop hageal reflux disease [id number] K21.9 in past: total of omeprazole x 6 mo as of 12/2014: 3 mo of pantoprazo le sucralfate this combo helps but she stopped PPI as of 08/2015 sx worse rec changing to zantac bid as ppi and osteoporos is not ideal together trial for next 3-6 mo will continue ppi for no more than 5 years in past: total of omeprazole x 6 mo cscope wnl, egd w/ chronic gastritis [id number] Prosper Cain MD , [facility], OFFICE [address] [place] [address] 10/31/2015 11:01:36 10/31/2015 12:10:50 Adult health examination 408686513 Z00.00 see Risk Assessment and Lifestyle Change Counseling section above Gastroesop hageal reflux disease 737064734 K21.9 ranitidine BID, tolerating well Lipoma 18679414 D17.9 Saw general surgeon - has follow up in December Bunion [id number] M20.10 Has not made an appointmen t. Will call to set up an appointmen t today Osteoporosis 61425658 M8 1.0 keep appointmen t with Dr. Bey in December Arthritis 2036048 M19.[address] Cifuentes to someone in [place] Has an appointmen t apr 07 2015 Hypothyroidism 16323649 E03.9 at goal with no medication s. check yearly Increased frequency of urination 520666771 R35.0 saw urology a couple months ago. Was to start vesicare but it was not covered. has follow up next month. 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 Has an appointmen t in January in [facility] [id number] L8 4 [id number] Hesham Bey MD Endocrino logy, [facility] [address] [place] [address] 12/15/2015 13:08:36 12/15/2015 14:07:35 Osteoporosis 24085304 M81.0 -increase calcium by pills 500 to 600mg 2 times daily -vitamin d 1000 to 2000units daily -use the right type of calcium for your stomach, try different brands until you feel well, some people like calcium chews -balance exercises, such as benito chi or yoga -reclast next due 04/15, will order in March for delivery to [facility], will not administer until labs result and kidney function is normal Vitamin D deficiency 347 83715 E55.9 [id number] Jeanne Wills RN BSN Endocrino logy, [facility] [address] [place] [address] 04/19/2016 12:53:22 04/19/2016 14:38:34 Osteoporosis 47829553 M81.0 -increase calcium 500mg by mouth 2 times daily-clar rashida vitamin d dose and target greater luke 30ng/mL-ba fawad exercises- zoledronat e today-dxa and labs 1y, clinic 53 weeks, to reconsider additional reclast then Vitamin D deficiency 347 15060 E55.9 -vitamin d Long-term drug therapy 309306589 Z79.899 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 [id number] Leticia Shipman NP , [facility], [address] [place] [address] 05/07/2016 09:45:22 05/07/2016 10:37:50 Foot callus 079149170 L84 Active or passive immunization 965049112 Z23 Osteoporosis 81958727 M8 1.0 Bunion 208773507 M20.10 will contact podiatry if she decides on surgeru Gastroesop hageal reflux disease 087277157 K21.9 ranitidine BID, tolerating well [id number] Gerald Shelton MD , [facility], OFFICE [address] [place] [phone] 11/05/2016 09:48:19 11/05/2016 10:51:59 Adult health examination 236162774 Z00.00 see Risk Assessment and Lifestyle Change Counseling section above Screening for malignant neoplasm of cervix 775322540 Z12.4 Active or passive immunization 194803053 Z23 Osteoporosis 65159920 M8 1.0 Rheumatoid arthritis [address] Manriquez Dry skin 84930148 L85.3 Eruption 949412933 R21 Thyroid fu nction tests abnormal 160198096 R94.6 [id number] Gerald Shelton MD , [facility], OFFICE [address] [place] [address] 12/03/2016 10:15:34 12/03/2016 11:18:37 Bursitis of shoulder 905461175 M75.51 [id number] Ashley Sandoval Ms, PT Physical Therapy, [address] [address] 12/17/2016 10:28:49 12/17/2016 11:40:08 Bursitis of shoulder 751179006 M75.51 [id number] Ashley Sandoval Ms, PT Physical Therapy, [address] [address] 12/24/2016 10:26:57 12/24/2016 12:04:14 Bursitis of shoulder 230243645 M75.51 [id number] Ashley Sandoval Ms, PT Physical Therapy, [address] [address] 12/31/2016 09:46:15 12/31/2016 10:44:47 Bursitis of shoulder 860835332 M75.51 [id number] Gerald Shelton MD , [facility], OFFICE [address] [place] [address] 01/07/2017 09:25:04 01/07/2017 10:16:36 Hypothyroidism 00309902 E03.9 Rheumatoid arthritis [address] Manriquez Shoulder joint pain 2679 77545 M25.529 [id number] Good Mast MD Sports Medicine, [address] [address] 01/08/2017 09:08:01 01/08/2017 10:44:53 Shoulder pain 85834502 M25.511 Tori is a 61-year-ol d female with a history of rheumatoid arthritis with right shoulder pain most consistent with tendinitis of the long head of the biceps tendon. She has excellent strength in the office and no evidence of a full-thick ness rotator cuff tear. I had an extensive discussion with her regarding the cause of her pain and treatment options both short and long-term. We discussed continued conservati ve management , injection therapy, the possibilit y of surgical interventi on. Unfortunat sara she has failed to improve with physical therapy and the decision was made to perform a right shoulder biceps tendon sheath corticoste roid injection under ultrasound guidance. She tolerated this well without complicati on. I've advised that she ice and rest her shoulder over the next week. I have advised that she avoid any heavy lifting or aggressive movements for approximat sara 2 weeks. She will return to physical therapy starting in 14 days. I have advised that she follow-up with her rheumatolo gist to discuss whether any modificati on in her medical regime is necessary and she'll follow-up with me in 4 weeks if she is having persistent discomfort . [id number] Kathy Dean RN BSN , [facility], OFFICE [address] [place] [address] 09/24/2017 08:56:36 09/24/2017 10:02:37 Active or passive immunization 034919061 Z23 [id number] Gerald Shelton MD , [facility], OFFICE [address] [place] [phone] 01/13/2018 09:44:24 01/13/2018 10:41:59 Adult health examination 341616120 Z00.00 see Risk Assessment and Lifestyle Change Counseling section above Rheumatoid arthritis [address] Manriquez Bladder mu scle dysfunction - overactive 186245440 N32.81 Gastroesop hageal reflux disease 231134887 K21.9 Vitamin D deficiency 347 53757 E55.9 Osteoporosis 97516018 M8 1.0 Herpes labialis 3961149 B00.1 Hypothyroidism 18542440 E03.9 Health Concerns Section Related Observation LastModified by Organization Detai ls LastModified Time None Recorded Concern Status LastModified by Organization Details LastModified Time None Recorded Advance Directives Directive None Recorded Payers Encounter Date Sequence Insurance Name Policy Number Policy Mccarthy Covered Member ID Mccarthy Member ID Guarantor Name 12/31/2016 1 [facility] [employer]MEDICAID HMO) [id number] Tono Gene [id number] Tono Gene 01/07/2017 1 [employer] [place] [employer]MEDICAID HMO) [id number] Tono Gene [id number] Tono Gene 01/08/2017 1 [employer] [facility] [place] [employer] (MEDICAID HMO) [id number] Tono Gene [id number] Tono Gene 09/24/2017 1 [employer] [place] [employer]MEDICAID HMO) [id number] Tono Gene [id number] Tono Gene 01/13/2018 1 [employer] [place] [employer] [place] (MEDICAID HMO) [id number] Tono Gene [id number] Tono Gene Notes Date Note Type Note Provider Name and Address Organization Details Recorded Time 12/31/2016 text/html Shoulder same. D id the x-ray before coming here. Ashley Sandoval Ms, PT [address] [place] [address], [place], [phone], [facility] 12/31/2016 10:40:18 01/07/2017 text/html Pt here for L shoulder pain- physical therapy not helpful and xray did not show any abnormalities. Pt has an appt iwth Dr Mast tomorrow. Pt also here for f/u on TSH - has past history of hypothyroidism but not on any replacement - was monitoring every year and normal level until last visit. However, pt was sick at the time of the blood draw. Gerald Shelton MD [address] [place] [address], [phone], [facility] 01/07/2017 10:16:40 01/08/2017 text/html Tori is a 61-year-old female presents today for evaluation of right shoulder pain. She states that she developed pain in the front of her right shoulder approximately 3 months ago. She denies any trauma or fall and states the pain was gradual in onset. She states the pain is particularly bad at night especially when lying in bed and feels better when lying with her hand and arm stretched over her head. She also states she occasionally has discomfort with some movements during the day. She has never had any previous shoulder surgery or injections. She has been doing physical therapy for the last 3-4 weeks and has had minimal improvement in her symptoms. 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 Good Mast MD [address] [place] [address], [phone], [facility] 01/08/2017 11:15:00 01/13/2018 text/html Physical Exam/FemaleReported bypatient.Anabel holley is here for a Wellness Visit. She describes her health status as fair. Patient's health is worse than last year.Risk Assessment and Lifestyle Change Counseling 50-64Reported bypatient.Coronary Artery Disease Risk Assessment:No Family history of coronary artery disease; No personal history of diabetes; No history of peripheral vascular disease, AAA, or carotid disease; Patient has low risk for coronary artery disease Breast Cancer Risk Assessment:No family history of breast cancer; Patient has average risk for breast cancer Colon Cancer Risk Assessment:No family history of colon polyps or cancer; Patient has low risk for colon cancer Lung Cancer Risk Assessment:Never smoked; Patient has low risk for lung cancer Fracture Risk Assessment:No unexplained fracture; Patient has higherthan average risk for osteoporotic bone fractures; Frax 10 year fracture risk Cognitive/Behaviora l Risk Assessment:No personal history of mental illness Safety Risk Assessment:No evidence of abuse/neglect; Have you ever been a victim of physicial/emotional /sexual abuse?NO Diet:Counseled about appropriate portion size; Counseled about eating a diet low in trans and saturated fats and high in fiber, fruits and vegetables; Counseled about appropriate calcium intake and good dietary sources of calcium.; Counseled about the importance of maintaining a positive calcium balance and taking 1000 iu Vitamin D daily.; Discussed the value of a Mediterranean diet , and eating more fruits and vegetables Exercise counseling:Discusse d the importance of daily physical activity; Discussed the importance of weight bearing exercise Safety:Counseled about protecting skin from the sun and lowering the risk of skin cancer; Counseled about use of helmets for high velocity activiities Gerald Shelton MD [address] [place] [address], [phone], [facility] 01/13/2018 19:29:55 OBGyn Episode No OBEpisode recorded.
[2025-01-21 10:34] LABS: MANUAL DIFF FLAG NO
[2025-01-21 10:39] LABS: Basophils Percent Auto 0.5 % (0-2); Eosinophils Absolute Auto 0.2 X10*3/uL (0.0-0.4); Eosinophils Percent Auto 4.2 % (0-4); Hematocrit 38.1 % (37.0-47.0); Hemoglobin 12.8 g/dl (12.0-16.0); Imm Gran Abs Auto 0.01 X10*3/uL (0.00-0.03); Imm Gran Pct Auto 0.3 % (0.0-0.4); Lymphocytes Percent Auto 25.9 % (20-40); Mean Corpuscular HGB Conc 33.6 g/dl (31.0-35.0); Mean Corpuscular Volume 101.3 fL (80.0-98.0); Monocytes Absolute Auto 0.4 X10*3/uL (0.1-1.2); Neutrophils Absolute Auto 2.2 x10*3/uL (2.0-8.3); Neutrophils Percent Auto 58.1 % (45-73); Platelet Count 223 X10*3/uL (160-400); Red Blood Count 3.76 X10*6/uL (4.20-5.50); Red Cell Distribution Width 13.2 % (11.0-16.0); White Blood Count 3.8 X10*3/uL (4.8-10.8)
[2025-01-21 11:08] LABS: Albumin Level 4.3 g/dL (3.5-5.0); Alkaline Phosphatase 57 U/L (39-117); Anion Gap 10 (12-20); Aspartate Amino Transferase 46 U/L (5-31); Bilirubin Total 0.6 mg/dL (0.0-1.0); Blood Urea Nitrogen 18 mg/dL (9-16); C Reactive Protein < 0.10 mg/dL (< or = 0.50); Calcium 9.4 mg/dL (8.4-10.2); Carbon Dioxide 25 mmol/L (22-29); Chloride 109 mmol/L (96-108); Estimated Glomerular Filt Rate > 60; Glucose Random 99 mg/dL (60-115); Potassium 4.3 mmol/L (3.3-5.1); Sodium 140 mmol/L (135-145); Total Protein 7.6 g/dL (6.5-8.0)
[2025-01-21 11:18] LABS: Erythrocyte Sedimentation Rate 7 MM/HR (0-20)
[2025-01-21 11:23] LABS: Alanine Aminotransferase 36 U/L (0-31)
== END 2025-01-21 08:28 | disposition home or self-care (01) ==
LOC: HO.10HDL 08:27
PROVIDERS: Visit Provider Student in an Organized Health Care Education/Training Program
DX: M81.0 Age-related osteoporosis without current pathological fracture (principal)
CPT/HCPCS: 36415; 80053; 82306; 85025; 85652; 86140

== ENCOUNTER 2025-02-02 09:15 | Outpatient (AMB) | payer MEDICARE, SELFPAY ==
--- NOTE | 2025-02-02 09:29 | AM.OFFVISNUR ---
Intake Visit Reasons: prolia injection Allergies No Known Allergies [No Known Allergies*] Allergy (Verified 05/06/24 10:27) Office Meds Prolia 60 mg/mL subcutaneous syringe Performing Provider: Lucy Porter MD [place]forming [place] [facility] Administered by: Yessica Sidhu RN on 02/02/25 09:30 Dose Route Admin Location Dispensed Lot Number Expiration Date ND Foley Artist 60 mg subcut left upper arm 1 mL [id number] 05/30/27 41562-351-84 [facility] Comments: Consent form signed by patient. Pt tolerated injection well. Pt denies any adverse reactions with previous injections. Assessment & Plan Assessment & Plan Orders: Orders AMB Denosumab Injection Patient Supplied Today M81.0 - Age-related osteoporosis without current pathological fracture Medications: New Prolia (denosumab) 60 mg subcut ONCE 1 mL 0RF NS M81.0 - Age-related osteoporosis without current pathological fracture Coding
--- OUTSIDE RECORDS SUMMARY | 2025-02-02 10:13 | XMS_ITS | Encounter Summary ---
Author Organization [email or web address] Address [address] [facility] 7[address] [place] [address] Care Team Providers Care Netezza Architect Name Role Phone Unavailable Primary Care Provider Unavailabl e Reason for Visit * Reason Onset Date Comments appt/active request 11/01/2024 Encounter Details Date Type Department Care Team (Late st Contact Info) Description 11/01/2024 Telephone [facility]ULT [facility] [address] [place] [address] August Alexandre, ONEIDA [address] [place] [address] appt/active request Social History Tobacco Use Types [...] Care Team (Late st Contact Info) Description 02/07/2025 9:00 AM EDT Office Visit [facility] [address] [place] [address] August Alexandre, DMD [address] [place] [address] documented as of this encounter Visit Diagnoses Not on filedocumented in this encounter
--- OUTSIDE RECORDS SUMMARY | 2025-02-02 10:13 | XMS_ITS | Clinical Summary ---
Author Organization [employer] Address [address] [facility] [address] [place] [address] Care Team Providers Care Optical Glass Silverer Name Role Phone Unavailable Primary Care Provider Unavailabl e Allergies Active Allergy Reactions Criticality Noted Date Comments Vguxpvlxpjp-Nozdavmy-Qxwf Sulf 12/10 Medications celecoxib (CeleBREX) 200 MG [...] Once per day. 3 Active Active Problems Problem Noted Date Diagnosed Date Abdominal mass 01/21/2025 Abnormal thyroid blood test 01/21/2025 Overview (01/21/2025): TPO antibody 23 (2017). TSH 5-10. 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 Amador). Vitamin D deficiency 03/11/2018 Rheumatoid arthritis 11/05/2016 Overview (01/21/2025): Removal Reason: revised Encounters Date Type Department Care Team Description 01/21/2025 9:30 AM EST Office Visit [facility] [address] [place] [address] August Alexandre DMD 12/17/2024 11:00 AM EST Office Visit [facility] [address] [place] [address] August Alexandre DMD 12/10/2024 10:00 AM EST Office Visit [facility] [address] [place] [address] August Alexandre DMD 11/18/2024 Telephone [facility] [address] [place] [address] Tahira Kline from Last 3 Months Social History Tobacco [...] Orientation Straight 08/18/2024 10 :08 AM EDT Last Filed Vital Signs Vital Sign Reading Time Taken Comments Blood Pressure 130/80 01/21/2025 9:11 AM EST Pulse 67 01/21/2025 9:11 AM EST Temperature - - Respiratory Rate - - Oxygen Saturation - - Inhaled Oxygen Concentration - - Weight - - Height - - Body Mass Index - - Plan of Treatment Upcoming Encounters Date Type Department Care Team (Late st Contact Info) Description 02/07/2025 9:00 AM EDT Office Visit [facility] [address] [place], [place] [phone] August Alexandre, DMD [address] [place] [address] Health Maintenance Due Date Last Done Comments [...] Dental Oral Exam 03/08/2025 09/06/2024 Tobacco Screening 01/21/2026 01/21/2025 Mammogram 03/08/2026 03/08/2024, 03/12/2022, 02/21/2022, Additional history [...] Procedure Name Priority Date/Time Associated Diagnosis Comments WAX TRY IN Routine 01/21/2025 9:30 AM EST DENTURE IMPRESSION Routine 12/17/2024 11 :00 AM [...]
--- OUTSIDE RECORDS SUMMARY | 2025-02-02 10:13 | XMS_ITS | Encounter Summary ---
Author Organization [facility] Address [address] [facility] 7 [place] [address] Care Team Providers Care Peer Support Specialist Name Role Phone Unavailable Primary Care Provider Unavailabl e Reason for Visit * Reason Comments Dentures Wax try in Encounter Details Date Type Department Care Team (Late st Contact Info) Description 01/21/2025 9:30 AM EST Office Visit [facility] ADULT D[facility] [address] [place] [address] August Alexandre DMD [address] [place] [address] Social History Tobacco Use Types Packs/Day Years [...] AM EDT documented as of this encounter Last Filed Vital Signs Vital Sign Reading Time Taken Comments Blood Pressure 130/80 01/21/2025 9:11 AM EST Pulse 67 01/21/2025 9:11 AM EST Temperature - - Respiratory Rate - - Oxygen Saturation - - Inhaled Oxygen Concentration - - Weight - - Height - - Body Mass Index - - documented in this encounter Progress Notes * August Alexandre DMD - 01/21/2025 9:30 AM EST Teeth try in of F/. Pt likes the esthetic and feels fine NV: Delivery of F/ Leroy documented in this encounter Plan of Treatment Upcoming Encounters Date Type Department Care Team (Late st Contact Info) Description 02/07/2025 9:00 AM EDT Office Visit [facility] [address] [place] [address] August Alexandre, ONEIDA [address] [place] [address] documented as of this encounter Procedures Procedure Name Priority Date/Time Associated Diagnosis Comments WAX TRY IN Routine 01/21/2025 9:30 AM EST documented in this encounter Visit Diagnoses Not on filedocumented in this encounter
== END 2025-02-02 09:27 | disposition home or self-care (01) ==
PROVIDERS: PCP Pediatrics
DX: M81.0 Age-related osteoporosis without current pathological fracture (principal)

== ENCOUNTER → 2025-02-02 09:15 | Outpatient (BNVA) | payer MEDICARE, SELFPAY | PROVIDERS: PCP Pediatrics | DX: M81.0 Age-related osteoporosis without current pathological fracture (principal) | CPT/HCPCS: 96372; J0897 ==

== ENCOUNTER 2025-02-21 09:01 | Outpatient (REF) | payer MEDICARE, SELFPAY ==
[2025-02-21 11:05] LABS: Alanine Aminotransferase 28 U/L (0-31); Albumin Level 4.3 g/dL (3.5-5.0); Alkaline Phosphatase 82 U/L (39-117); Anion Gap 13 (12-20); Aspartate Amino Transferase 35 U/L (5-31); Bilirubin Total 0.3 mg/dL (0.0-1.0); Blood Urea Nitrogen 14 mg/dL (9-16); Calcium 9.2 mg/dL (8.4-10.2); Carbon Dioxide 27 mmol/L (22-29); Chloride 108 mmol/L (96-108); Estimated Glomerular Filt Rate > 60; Glucose Random 87 mg/dL (60-115); Sodium 144 mmol/L (135-145); Total Protein 7.1 g/dL (6.5-8.0)
== END 2025-02-21 09:02 | disposition home or self-care (01) ==
LOC: HO.10HDL 09:01
PROVIDERS: Visit Provider Student in an Organized Health Care Education/Training Program
DX: R74.01 Elevation of levels of liver transaminase levels (principal)
CPT/HCPCS: 36415; 80053

== ENCOUNTER 2025-02-24 07:24 | Outpatient (AMB) | payer MEDICARE, SELFPAY ==
--- OUTSIDE RECORDS SUMMARY | 2025-02-24 07:27 | XMS_ITS | Encounter Summary ---
Author Organization [employer] Address [address] [facility] 7[address] [place] [address] Care Team Providers Care General Superintendent Name Role Phone Unavailable Primary Care Provider Unavailabl e Reason for Visit * Reason Onset Date Comments appt/active request 11/01/2024 Encounter Details Date Type Department Care Team (Late st Contact Info) Description 11/01/2024 Telephone [facility] AD[facility] DENT[facility] [address] [place] [address] August Alexandre, ONEIDA [address] [place] [address] appt/active request Social History Tobacco Use Types [...] documented in this encounter Plan of Treatment Not on file documented as of this encounter Visit Diagnoses Not on filedocumented in this encounter
--- OUTSIDE RECORDS SUMMARY | 2025-02-24 07:27 | XMS_ITS | Encounter Summary ---
Author Organization [facility] [facility] Address [address] [facility] 7 [place] [address] Care Team Providers Care Hosted Services Analyst Name Role Phone Unavailable Primary Care Provider Unavailabl e Reason for Visit * Reason Comments Dentures Encounter Details Date Type Department Care Team (Late st Contact Info) Description 02/07/2025 9:00 AM EDT Office Visit [facility] ADULT DENT[facility] [address] [place] [address] August Alexandre DMD [address] [place] [address] Social History Tobacco Use Types Packs/Day Years [...] Sign Reading Time Taken Comments Blood Pressure 132/88 02/07/2025 8:59 AM EDT Pulse - - Temperature - - Respiratory Rate - - Oxygen Saturation - - Inhaled Oxygen Concentration - - Weight - - Height - - Body Mass Index - - documented in this encounter Progress Notes * August Alexandre DMD - 02/07/2025 9:00 AM EDT Delivery of F/. Palatal border is being shortened slightly. Pt likes the esthetic and feels fine NV: adjustment if needed and imp of /F in Aug, 2025 Leroy documented in this encounter Plan of Treatment Not on file documented as of this encounter Procedures Procedure Name Priority Date/Time Associated Diagnosis Comments Max COMPLETE DENTURE - MAXILLARY Routine 02/07/2025 9:00 AM EDT CASE PRESENTATION, DETAILED AND EXTENSIVE TREATMENT PLANNING Routine 02/07/2025 9:00 AM EDT documented in this encounter Visit Diagnoses Not on filedocumented in this encounter
--- OUTSIDE RECORDS SUMMARY | 2025-02-24 07:27 | XMS_ITS | Clinical Summary ---
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 Amador). Vitamin D deficiency 03/11/2018 Rheumatoid arthritis 11/05/2016 Overview (01/21/2025): Removal Reason: revised Encounters Date Type Department Care Team Description 02/07/2025 9:00 AM EDT Office Visit [facility] [address] [place] [facility] [place] [address] August Alexandre DMD 01/21/2025 9:30 AM EST Office Visit [facility] [address] [place] [address] August Alexandre DMD 12/17/2024 11:00 AM EST Office Visit [facility] [address] [place] [address] August Alexandre DMD 12/10/2024 10:00 AM EST Office Visit [facility] [address] [place] [address] August Alexandre DMD from Last 3 Months Social History Tobacco [...] Pressure 132/88 02/07/2025 8:59 AM EDT Pulse 67 01/21/2025 9:11 AM EST Temperature - - Respiratory Rate - - Oxygen Saturation - - Inhaled Oxygen Concentration - - Weight - - Height - - Body Mass Index - - Plan of Treatment Health Maintenance Due Date Last Done Comments [...] Vaccines (1 of 2) 2005 COVID-19 Vaccine ( - season) 2024 Influenza Vaccine (#1) 2024 7, 11/05/2016, 09/18/2015, Additional history exists Dental Oral Exam 03/08/2025 09/06/2024 Tobacco Screening 02/07/2026 02/07/2025 Mammogram 03/08/2026 03/08/2024, 04/0 07/2024, 02/28/2023, Additional history exists Dental X-Ray: Full Mouth [...] Procedure Name Priority Date/Time Associated Diagnosis Comments CASE PRESENTATION, DETAILED AND EXTENSIVE TREATMENT PLANNING Routine 02/07/2025 9:00 AM EDT Max COMPLETE DENTURE - MAXILLARY Routine 02/07/2025 9:00 AM EDT WAX TRY IN Routine 01/21/2025 9:30 AM [...]
--- OUTSIDE RECORDS SUMMARY | 2025-02-24 07:27 | XMS_ITS | Data Portability ---
Author Organization [facility], , [facility] Address [address] [place] [address] Assessment Encounter Date Assessment Date Assessment LastModified [...] r 1 gram tablet 2017 018 tia [facility]/Pharmacy #[id number], [address] [place], [address], 8 10:33:16 Patient TargetsNo targets recorded. Patient Instructions Encounter Date Encounter Id Patient Instructions Last Modified By Organization Details Last Modified Time 01/07/2017 [id number] After a discussion of treatment and medication options, which included consideration of the best practices in medicine, a medical plan was provided. The patient's opinions and concerns were included in this treatment plan and goal. 1. TSH back to normal, will recheck every year at the [facility] 2. call me if you need any pain meds for your shoulder. dejan Not available 01/07/2017 10:15:06 01/08/2017 [id number] Rest and ice for the next week Avoid any heavy lifting for 2 weeks Restart physical therapy in approximately 7-10 days Follow-up in 4 weeks for a recheck if still having pain Follow-up with your rhemuatologist Seek immediate attention for any redness, fevers, chills, worsening or severe pain, or any other concerning symptoms. Not available 01/08/2017 11:14:09 01/13/2018 [id number] well visit, wome n 50 to 65: [...] use sunblock consistently 4. review the website: [employer].org to get more information on the Mediterranean [...] mammogram is up to date - at [facility] , yearly. 12. your bone density showed osteoporosis, 2016 and is treated by Dr Amador, who also orders the bone density test in 1-2 yrs. 13. Health care proxy discussed and form completed. copy in chart 14. OAB - follows urologist in [place] - Dr Davila once a year. Well controlled with meds. 15. PHA in 1 year. Repeat TSH in 6 mos, still in range but high normal. 16. RA - follows time study analyst, Dr Amador, and well controlled with meds. [...] en 0.4-4 .0 mIU/m L. Not Available [address], [address], 12/31/2016 16:09:34 01/09/20 18 01/09/2018 TSH, serum or plasm a TSH 5.33 uIU/m L 0.50-6 .00 The Ameri can Colle ge of Endoc rinol ogy and Ameri can Thyro id Assoc iatio n recom mend goal TSH value s betwe en 0.4-4 .0 mIU/m L. Not Available [address], [address], 01/09/2018 16:52:23 12/31/19 17 12/31/2016 XR, shoul [...] as above. [facility] Electr onical ly signed Sampson Lynne daphne: Kee vivas MD [facility] (Imaging) [address] , [place], [address], 12/31/2016 16:47:45 04/01/20 17 03/25/2017 bone densi [...] the sensit ivity of mammog paul. POS [id number] Electr onical ly Signed by: BRYN WILKINSON on 2016 4:04 PM Interp reted by: Bryn wilkinson MD Signed by: Bryn wilkinson MD Final result Id omkar/ dmo No worrie s or concer ns No family hx KHARMFrederick BAKER DEL CASTIL LO FLOR BAKER DEL CASTIL LO FLOR BAKER DEL CASTIL LO [email or web address] [facility] [address] [place] [address], [address], 12/07/2017 08:23:54 11/28/20 17 11/28/2017 MAMMO , scree melanie No observ ation record ed. [email or web address] [address], [address], 12/07/2017 08:23:54 Result Notes None recorded. Problems Name Problem SNOMED Code Status Onset Date Resolution Date Notes Provider Name and Address Organization Details Recorded Time Gastroeso phageal reflux disease 680875786 Active Leticia Shipman NP [address] [place] [address] [place], [address], [facility] 6 10:51:24 Foot callus 855528097 Active Leticia Shipman NP [address] [place], [place] [address] [place], [address], [facility] 6 10:51:24 Arthritis 9950960 Completed 11/05/2016 Removal Reason: revised Gerald Shelton MD [address] [place], [place] [address] [place], [address], [facility] 6 10:23:28 Increased frequency of urination 181756626 Completed 12/12/2018 Removal Reason: revised Gerald Shelton MD [address] [place], [place] [address] [place], [address], [facility] 9 07:24:52 Hypothyro idism 49998049 Active Leticia Shipman NP [address] [place], [place] [address] [place], [address], [facility] 6 10:45:01 Osteoporo sis 71973136 Active Leticia Shipman NP [address] [place], [place] [address] [place], [address], [facility] 6 10:51:24 Abdominal mass 114145894 Active Leticia Shipman NP [address] [place], [place] [address] [place], [address], [facility] 6 10:45:01 Vitamin D deficienc y 44280200 Active Leticia Shipman NP [address] [place] [address] [place], [address], [facility] 6 10:45:01 Rheumatoi d arthritis 26125796 Active 2015 Gerald Shelton MD [address] [place], [place] [address] [place], [address], [facility] 6 10:23:06 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 Procedures Surgical History Date Name Laterality Status Provider Name and Address Organization Details Recorded Time 7 US Guided Biceps Tendon Sheath Injection completed Good Mast MD [address] [place], [address], [facility] 01/08/2017 11:14:27 7 [address]: Therapeutic Exercise completed Ashley Sandoval Ms, PT [address] [place], [address], [facility] 12/31/2016 10:32:09 7 Treatment and Advice completed Ashley Sandoval Ms, PT [address] [place], [address], [facility] 12/31/2016 10:23:51 7 [address]: Therapeutic Exercise completed Ashley Sandoval Ms, PT [address] [place], [address], [facility] 12/24/2016 11:21:16 7 [address]: Manual Therapy completed Ashley Sandoval Ms, PT [address] [place], [address], [facility] 12/24/2016 11:22:43 7 Treatment and Advice completed Ashley Sandoval Ms, PT [address] [place], [address], [facility] 12/24/2016 11:25:02 7 Physical Activity Counselling completed Ashley Sandoval Ms, PT [address] [place], [address], [facility] 12/17/2016 11:08:01 7 [address]: PT Eval Low Complexity completed Ashley Sandoval Ms, PT [address] [place], [address], [facility] 12/17/2016 11:07:53 7 Treatment and Advice completed Ashley Sandoval Ms, PT [address] [place], [address], [facility] 12/17/2016 11:14:15 6 IV Therapy completed Jeanne Wills RN BSN [address] [place], [address], [facility] 04/19/2016 15:53:35 4 Colonoscopy completed Gerald Shelton MD [address] [place], [address], [facility] 11/07/2016 17:53:53 Imaging Results Imaging Date Name Status LastModified by Organization Details LastModified Time 12/31/2016 XR, shoulder completed [facility] ([facility]) [address], [place], [address], 12/31/2016 16:47:45 03/25/2017 bone density completed [facility] Infor mation not available 04/01/2017 14:58:24 11/28/2017 bi mammogram screening with tomosynthesis with CAD (bilateral) completed [facility] [address] [place] [address], [address], 12/07/2017 08:23:54 11/28/2017 MAMMO, screening completed [address], [address], 12/07/2017 08:23:54 Procedure Notes None recorded. Medical [...] Details Last Updated DateTime 7 158.115 cm 38562.7 5 g 22.7 kg/m2 72 /min 116 mm[Hg] 78 mm[Hg] Teena Calvin [facility] 7 09:51:41 Date Recorded Body height Heart rate Systolic blood pressure Diastolic blood pressure Provider Name and Address Organization Details Last Updated DateTime 01/08/2017 158.115 cm 68 /min 110 mm[Hg] 78 mm[Hg] Berenice Bailon [facility] 01/08/2017 09:16:13 Date Recorded Body weight Body mass index (BMI) Body height Heart rate Systolic blood pressure Diastolic blood pressure Provider Name and Address Organization Details Last Updated DateTime 8 [address].9 6 g 22.4 kg/m2 158.12 cm 72 /min 120 mm[Hg] 78 mm[Hg] Teena Calvin, [facility] 8 09:58:21 Social History Question Answer Notes LastModified by Organizat ion Details LastModified Time Tobacco Smoking Status Never Smoker 04/19/2016 Jeanne Wills RN BSN [address] [place] [address], [address], [facility] 12/15/2015 13:30:46 What Is Your Level Of Alcohol Consumption? None 04/19/2016 Information not available 12/19/2014 Do You Wear A Helmet When Biking? No N/a [email or web address] Information not available 04/07/2015 How Much Tobacco [...] 12/19/2014 Live Alone Or With Others? Alone [place] Information not available 12/19/2014 Patient Has Health Care Proxy Signed And In Chart No Will Be Scottie [phone]; Form Given 01/13/2018 [email or web address] Information not available 10/29/2018 Marital Status Informatio n not available 12/19/2014 Mosquito Repellent Used Routinely Yes [email or web address] Information not available 04/07/2015 What Was The Date Of Your Most Recent Tobacco Screening? 01/13/2018 Information not available 06/23/2019 How Many Children Do You Have? 2 , 1 ; 1983 Scottie (girl); 1985 Gavino (boy); Live In [place] Information not available 12/19/2014 Seat Belts Used Routinely Yes Information not available 12/19/2014 Are You Sexually Active? No Information not available 12/19/2014 Smoke Alarm In Home Yes [email or web address] Information not available 04/07/2015 General Stress Level Medium [email or web address] Information not available 04/07/2015 Do You Use Sunscreen Routinely? Yes [email or web address] Information not available 04/07/2015 Sex: Unknown Functional [...] medical history recorded. Gynecological History Statement/Question Response Obstetrics History GPAL:G 0 P 0 0 0 0 Immunizations Vaccine Type Date Status Note Provider Nam e and Address Organization Details Recorded Time Influenza, split virus, quadrivalent, PF 5 completed Not Available [facility] 12/18/2019 02:20:10 Tdap 6 completed Not Available [facility] 12/18/2019 02:26:07 Influenza, split virus, quadrivalent, PF 6 completed Not Available [facility] 12/18/2019 02:25:05 influenza nasal, unspecified formulation 4 completed Yanet Gamboa M.D. [address] [place] [address], [address], [facility] 12/19/2014 12:06:42 Influenza, split virus, quadrivalent, PF 7 completed Not Available [facility] 12/18/2019 02:22:05 Past Encounters Encounter ID Performer Location Encounter Start Date Encounter Closed Date Diagnosis/Indication Diagnosis SNOMED-CT Code Diagnosis ICD10 Code Diagnosis Note [id number] Marissa Aparicio LPN , [facility], OFFICE [address] [place] [address] 12/19/2014 11:14:54 12/19/2014 12:20:48 Gastroesophageal reflux disease 310160329 in past: total of omeprazole x 6 mo as of 12/2014: 3 mo of pantoprazo le sucralfate this combo helps will continue ppi for no more than 5 years get GI records for labs eval and egd and cscope Foot callus 972202879 am monium lactate lotion 12% bid helps as does a top steroid flucoinoid e 0.05% (?would consider tapering to lower dose and or changing to antifungal ) Arthritis 1122836 record s from [facility] requested not clear dx at thispoint but on Celebrex, plaquenil (10/2014 optho ok) lv 10/2014, seeing 01/2015 mostly wrists, toes Increased frequency of urination 144480478 4 times/nigh t every 2 hours during the day oxybutynin 30mg daily x 1 year was on prior med as well Hypothyroidism 72945624 need records per pt she is not on replacemen t Osteoporosis 24010951 st ates gets dexa q2 years states treatment x 1 dose only for her osteoporos is but stopped due to GERD by karel [id number] Susana Wood , [facility], [address] [place] [address] 02/06/2015 17:16:06 02/06/2015 17:46:51 Acute laryngitis 4642446 [id number] Kandace Gilbert CMA , [facility], [address] [place] [address] 04/07/2015 09:34:16 04/07/2015 10:52:18 Allergic rhinitis 77249013 struggling discussed supportive care nasal steroid helped in past zytec prn alalway prn Osteoporosis 02034868 st ates gets dexa q2 years states treatment x 1 dose only for her osteoporos is but stopped due to GERD by karel as of 03/2015 reclast injection getting records today encouraged ca/vit D and Colace prn Increased frequency of urination 385830251 4 times/nigh t every 2 hours during the day oxybutynin 30mg daily x 1 year, off as of 2014 davila visit f/up with uro as scheduled Hypothyroidism 08834437 resolved per pt per pt she is not on replacemen t will resume standard infreq tsh screening Gastroesop hageal reflux disease 656824007 in past: total of omeprazole x 6 [...] cscope wnl, egd w/ chronic gastritis Arthritis 1256102 record s from [facility] requested not clear dx at thispoint but on Celebrex, plaquenil (10/2014 optho ok) mostly wrists, toes Foot callus 605451568 am monium lactate lotion 12% bid helps as does a top steroid flucoinoid e 0.05% this combo works for her will cont for now but low threshold for pods opinion Epidermoid cyst 832781039 59 yo F w/ limited German w/ likely scattered epidermoid cysts on R neck x 2 , L chest wall; breast border; per pt she would like them removed if possible; normal mammo 10/2014 [id number] Shasta Allen NP FP, [facility], [address] [place] [address] 09/05/2015 11:05:15 09/05/2015 13:39:10 Abdominal mass 540055188 R19.00 1 cm firm mobile mass RLQ approx. 3 lat and slightly above umb. [id number] Willa Qureshi , [facility], [address] [place] [address] 09/18/2015 13:49:22 09/19/2015 06:51:40 Screening for disorder 582638690 Z72.89 routine screening with labs Lipoma 86373943 D17.9 60 yo F Swedish speaking woman (German reasonable ) uncomforta ble lipoma +/-sebaceo us [...] and certainly may represent a lipoma. Bunion 567321957 M20.12 pt wishing for another referral to pods for orthotics vs surg recs, R foot great toe; told in past needs surg, 60 yo F parital German, Swedish primary lang Active or passive immunization 991450898 Z23 Tdap prescripti on needed fro Medicare and [employer] Osteoporosis 45318683 M8 1.0 states gets dexa q2 years w/ [facility] states treatment x 1 dose only for her osteoporos is but stopped due to GERD by vinson reclast injection every march re-est care w/ kassie sigifredo while pcp on leave encouraged ca/vit D and Colace prn and wt bearing exercise Gastroesop hageal reflux disease 448950639 K21.9 in past: total of omeprazole x [...] mo cscope wnl, egd w/ chronic gastritis [id number] Prosper Cain MD , [facility], [address] [place] [address] 10/31/2015 11:01:36 10/31/2015 12:10:50 Adult health examination 897908664 Z00.00 see Risk Assessment and Lifestyle Change Counseling section above Gastroesop hageal reflux disease 750382541 K21.9 ranitidine BID, tolerating well Lipoma 26833971 D17.9 Saw general surgeon - has follow up in December Bunion 355570811 M20.10 Has not made an appointmen t. Will call to set up an appointmen t today Osteoporosis 53477387 M8 1.0 keep appointmen t with Dr. Bey in December Arthritis 1652528 M19.[address] Cifuentes to someone in [place] Has an appointmen t apr 07 2015 Hypothyroidism 28246866 E03.9 at goal with no medication s. check yearly Increased frequency of urination 593797777 R35.0 saw urology a couple months ago. Was to start vesicare but it was not covered. has follow up next month. 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 Has an appointmen t in January in [facility] 451762269 L8 4 [id number] Hesham Bey MD Endocrino logy, [facility] [address] [place] [address] 12/15/2015 13:08:36 12/15/2015 14:07:35 Osteoporosis 94371783 M81.0 -increase calcium by pills 500 to 600mg 2 times daily -vitamin d 1000 to 2000units daily -use the right type of calcium for your stomach, try different brands until you feel well, some people like calcium chews -balance exercises, such as benito chi or yoga -reclast next due 04/15, will order in March for delivery to [facility], will not administer until labs result and kidney function is normal Vitamin D deficiency 347 02032 E55.9 [id number] Jeanne Wills RN BSN Endocrino logy, [facility] [address] [place] [address] 04/19/2016 12:53:22 04/19/2016 14:38:34 Osteoporosis 18045807 M81.0 -increase calcium 500mg by mouth 2 times daily-clar rashida vitamin d dose and target greater luke 30ng/mL-ba fawad exercises- zoledronat e today-dxa and labs 1y, clinic 53 weeks, to reconsider additional reclast then Vitamin D deficiency 347 11491 E55.9 -vitamin d Long-term drug therapy 875477068 Z79.899 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 [id number] Leticia Shipman NP , [facility], [address] [place] [address] 05/07/2016 09:45:22 05/07/2016 10:37:50 Foot callus 529629476 L84 Active or passive immunization 082856641 Z23 Osteoporosis 10281111 M8 1.0 Bunion 865165018 M20.10 will contact podiatry if she decides on surgeru Gastroesop hageal reflux disease 336962336 K21.9 ranitidine BID, tolerating well [id number] Gerald Shelton MD FP, [facility], OFFICE [address] [place] [address] 11/05/2016 09:48:19 11/05/2016 10:51:59 Adult health examination 663039805 Z00.00 see Risk Assessment and Lifestyle Change Counseling section above Screening for malignant neoplasm of cervix 016487256 Z12.4 Active or passive immunization 145038657 Z23 Osteoporosis 07900458 M8 1.0 Rheumatoid arthritis [address] Manriquez Dry skin 09486540 L85.3 Eruption 286771017 R21 Thyroid fu nction tests abnormal 802942192 R94.6 [id number] Gerald Shelton MD FP, [facility], OFFICE [address] [place] [address] 12/03/2016 10:15:34 12/03/2016 11:18:37 Bursitis of shoulder 878614619 M75.51 [id number] Ashley Sandoval Ms, PT Physical Therapy, [address] [address] 12/17/2016 10:28:49 12/17/2016 11:40:08 Bursitis of shoulder 235213332 M75.51 [id number] Ashley Sandoval Ms, PT Physical Therapy, [address] [address] 12/24/2016 10:26:57 12/24/2016 12:04:14 Bursitis of shoulder 718291386 M75.51 [id number] Ashley Sandoval Ms, PT Physical Therapy, [address] [address] 12/31/2016 09:46:15 12/31/2016 10:44:47 Bursitis of shoulder 776704765 M75.51 [id number] Gerald Shelton MD , [facility], OFFICE [address] [place] [address] 01/07/2017 09:25:04 01/07/2017 10:16:36 Hypothyroidism 46196986 E03.9 Rheumatoid arthritis [address] Manriquez Shoulder joint pain 2679 35337 M25.040 [id number] Good Mast MD Sports Medicine, [address] [address] 01/08/2017 09:08:01 01/08/2017 10:44:53 Shoulder pain 59040670 M25.511 Tori is a 61-year-ol d female [...] if she is having persistent discomfort . [id number] Kathy Dean RN BSN , [facility], OFFICE [address] [place] [address] 09/24/2017 08:56:36 09/24/2017 10:02:37 Active or passive immunization 537900504 Z23 [id number] Gerald Shelton MD , [facility], OFFICE [address] [place] [address] 01/13/2018 09:44:24 01/13/2018 10:41:59 Adult health examination 234833595 Z00.00 see Risk Assessment and Lifestyle Change Counseling section above Rheumatoid arthritis [address] Manriquez Bladder mu scle dysfunction - overactive 758606957 N32.81 Gastroesop hageal reflux disease 050184717 K21.9 Vitamin D deficiency 347 16707 E55.9 Osteoporosis 11015998 M8 1.0 Herpes labialis 9959134 B00.1 Hypothyroidism 19048461 E03.9 Health Concerns Section Related Observation LastModified by Organization Detai ls LastModified Time None Recorded Concern Status LastModified by Organization Details LastModified Time None Recorded Advance Directives Directive None Recorded Payers Encounter Date Sequence Insurance Name Policy Number Policy Mccarthy Covered Member ID Mccarthy Member ID Guarantor Name 12/31/2016 1 [employer] [facility] [employer] [place] (MEDICAID HMO) [id number] Tono Gene [id number] Tono Gene 01/07/2017 1 [employer] [facility] [employer] (MEDICAID HMO) [id number] Tono Gene [id number] Tono Gene 01/08/2017 1 [employer] [facility] [employer] (MEDICAID HMO) [id number] Tono Gene [id number] Tono Gene 09/24/2017 1 [employer] [facility] [employer] (MEDICAID HMO) [id number] Tono Gene [id number] Tono Gene 01/13/2018 1 [employer] [facility] [employer] (MEDICAID HMO) [id number] Tono Gene [id number] [facility] Notes Date Note Type Note Provider Name and Address Organization Details Recorded Time 12/31/2016 text/html Shoulder same. D id the x-ray before coming here. Ashley Sandoval Ms, PT [address] [place] [address], [place], [address], [facility] 12/31/2016 10:40:18 01/07/2017 text/html Pt here for [...] of the blood draw. Gerald Shelton MD [address] [place] [address], [address], [facility] 01/07/2017 10:16:40 01/08/2017 text/html Tori is a [...] she is under the care of a time study analyst. Good Mast MD [address] [place] [address], [address], [facility] 01/08/2017 11:15:00 01/13/2018 text/html Physical Exam/FemaleReported bypatient.Anabel [...] for high velocity activiities Gerald Shelton MD [address] [place] [address], [address], [facility] 01/13/2018 19:29:55 OBGyn Episode No OBEpisode recorded.
[2025-02-24 07:32] VITALS: BP 118/64; PULSE 59; O2SAT 100; BMI 23.3
--- NOTE | 2025-02-24 07:32 | A.OFFVIS_ITS ---
Vital Signs 02/24/25 07:32 Height 5 ft 2 in Weight 127 lb 3.307 oz BMI 23.3 BP 118/64 Blood Pressure Location Lt brachial Position Sitting Pulse 59 Pulse Source Pulse Oximeter Pulse Oximetry (%) 100 Oxygen Delivery Method Room Air Intake Visit Reasons: osteoporosis Intake Note: Patient was last seen on 05/06/[address] Keys. She presents for follow up on RA and lab review. Allergies No Known Allergies [No Known Allergies*] Allergy (Verified 02/24/25 07:33) Medication List - Last Reconciled 02/24/25 by Lucy Porter MD ammonium lactate 12% 1 appl topical DAILY 15 days celecoxib 200 mg PO DAILY cetirizine (All Day Allergy (cetirizine)) 10 mg PO DAILY PRN 90 days cholecalciferol (vitamin D3) 1,250 mcg PO QWEEK 90 days clobetasol 0.05% 1 appl topical BID clotrimazole-betamethasone 1-0.05 % 1 appl topical BID 2 weeks denosumab (Prolia) 60 mg subcut [id number] fluocinonide 0.05% 1 appl topical BID 30 days hydroxychloroquine 200 mg PO DAILY ketoconazole 2% 1 appl topical BID 30 days omeprazole 20 mg PO DAILY 90 days HPI Comments Details: Patient is a 69-year-old female with GERD, osteoporosis and seronegative rheumatoid arthritis here today for follow up Interval History: Patient last seen 05/06/[address] Keys. At that time she was on methotrexate 20 mg weekly, folic acid 5 mg daily and leucovorin 5 mg weekly as well as hydroxychloroquine 200 mg daily. She was getting intermittent pain and stiffness in her hands requiring Celebrex about 3-4 days a week but was doing well overall. Methotrexate was decreased to 10 mg weekly due to transaminitis. Today patient reports she is doing well overall. Gets intermittent pain and stiffness in her hands and her feet which is short-lived. No falls or fractures since last visit. Received her Prolia injection February 02 Rheumatologic History: Seronegative rheumatoid arthritis diagnosed based on x-rays of hands, wrists, feet which showed erosions in 2016. Plaquenil Methotrexate Current Rheumatology Medication(s): Plaquenil 200 mg daily Methotrexate 10 mg weekly Folic acid 5 mg daily Leucovorin 5 mg weekly Prolia 60 mg every 6 months [facility] Medical History Macrocytosis Physical exam Hypovitaminosis D GERD (gastroesophageal reflux disease) Osteoporosis Seronegative rheumatoid arthritis Surgical History History of ear surgery Family History Father Medical history unknown Mother No problems noted. Brother No problems noted. Brother No problems noted. Sister No problems noted. Sister No problems noted. Sister No problems noted. Sister No problems noted. Son No problems noted. Daughter No problems noted. Social History Housing: House Alcohol intake: never Patient Tobacco Use Status: Never used Tobacco e-Cigarette/Vaping Use: Never Used Second Hand Smoke Exposure: No service: No Current occupational status: retired Cognitive needs: No Hearing needs: No Vision needs: No Review of Systems Const Details: Review of Systems Constitutional: Denies fever, chills, weight loss ENT: Denies vision changes, eye pain or eye redness, dental caries, dry mouth GI: Denies nausea, vomiting, diarrhea, abdominal pain, change in BM Pulm: Denies SOB, SCHROEDER, hemoptysis, wheezing Cards: Denies chest pain, palpitations Skin: Denies Raynaud's, rash, nail changes, photosensitivity, BOTTOM SPRAYER: Denies headaches, weakness, paresthesias, recurrent falls MSK: as per HPI All other systems reviewed and are unremarkable except noted above Physical Exam Vital Signs: Last Vital Signs Pulse 59 02/24/25 07:32 BP 118/64 02/24/25 07:32 Pulse Ox 100 02/24/25 07:32 Oxygen Delivery Method Room Air 02/24/25 07:32 BMI result Body Mass Index 23.3 Vital signs reviewed Physical Examination CONSTITUITIONAL Patient alert and cooperative. Well appearing and in no apparent painful distress HEENT Conjunctiva and sclera clear. ?Pupils equal round and reactive to light. ?No lymphadenopathy. ? CHEST/RESPIRATORY SYSTEM Normal respiratory effort and able to speak in complete sentences. ?Clear to auscultation bilaterally. ?No crackles, rales, rhonchi, wheezes heard. CARDIAC SYSTEM Regular rate and rhythm. ?S1 and S2 heard no murmurs. ?Radial pulses intact bilaterally MSK Hands: ?Good dean [employer] studies strength bilaterally.?No synovitis noted to the MCPs, PIPs or DIPs. ?No tenderness to palpation of these joints. [place]berden nodes noted and Mello's nodes. Reducible swan-neck and boutonniere deformities Wrists: ?Decreased range of motion to bilateral wrists with about 5-10 degrees of flexion/extension. ?No tenderness to palpation or synovitis noted to the wrists. Elbows: Full range of motion without pain. No tenderness, weakness, swelling, increased warmth or erythema. Shoulders: Full range of motion without pain. No tenderness, weakness, swelling, increased warmth or erythema. Knees: ?Full range of motion. ?No tenderness, swelling, increased warmth or erythema.? Crepitations felt bilaterally Ankles: Full range of motion. ?No tenderness, swelling, increased warmth or erythema.? Feet: ?Negative squeeze test. ?No tenderness to palpation or swelling of the MTPs. Bunions noted to bilateral feet Tender points:?No tenderness to palpation of the bilateral trapezius, supraspinatus, greater trochanters, anterior costochondral junctions, bilateral gluteal areas, bilateral suboccipital muscle insertions SKIN Skin intact without rashes. Results Reviewed Results Reviewed: Laboratory Tests 01/21/25 02/21/25 09:20 09:05 WBC 3.8 L RBC 3.76 L Hgb 12.8 Hct 38.1 Plt Count 223 ESR 7 Sodium 144 Potassium 4.0 Chloride 108 Carbon Dioxide 27 BUN 14 Creatinine 0.79 Calcium 9.2 Total Bilirubin 0.3 AST 46 H 35 H ALT 28 25-OH Vitamin D Total 27.0 L DEXA 05/2023 FINDINGS: AP SPINE L1-L3 (excluding L4): The data of L1-L4 has been changed to exclude the L4 vertebral body, because degenerative changes at this level may cause overestimation of lumbar spine density. Current: BMD 0.797 g/cm2, Z-score -1.2, T-score -3.1, osteoporosis, 7.7% increase from previous, 15.0% increase from baseline (<5% change is not significant). Prior: BMD 0.740 g/cm2. Baseline: BMD 0.693 g/cm2. LEFT FEMUR, NECK: Current: BMD 0.766 g/cm2, Z-score -0.2, T-score -2.0, osteopenia. Prior: BMD 0.765 g/cm2. Baseline: BMD 0.669 g/cm2. LEFT FEMUR, TOTAL: Current: BMD 0.747 g/cm2, Z-score -0.5, T-score -2.1, osteopenia, 0.8% decrease from previous, 6.0% increase from baseline (<5% change is not significant). Prior: BMD 0.753 g/cm2. Baseline: BMD 0.705 g/cm2. Assessment & Plan Assessment & Plan (1) Seronegative rheumatoid arthritis: Comment: MTX increased from 15 to 20 mg 10/2022 Code(s): M06.00 - Rheumatoid arthritis without rheumatoid factor, unspecified site Category: Medical Plan: #Seronegative Erosive RA Patient is a 69-year-old female with seronegative erosive rheumatoid arthritis here today for follow up. Exam today shows no synovitis in patient appears to be in remission of her disease. Her methotrexate was decreased at the last visit due to transaminitis but there is still persistent elevations in her AST. We will stop the methotrexate and re-evaluate her LFTs. Hopefully her disease is in remission and she does not need further immunosuppression other than the Plaquenil. If she has breakthrough flares we may need to consider adding a biologic medication given that she has erosive changes. Patient can continue to take Celebrex 1 tablet every other day for her osteoarthritis Plan - Stop methotrexate, folic acid and leucovorin - Continue Plaquenil - Celebrex 200mg every other day - RTC 4-6 months - Labs before visit: CBC, CMP, ESR, CRP, hepatitis panel, T spot (2) Osteoporosis: Comment: DEXA 03/2021: AP Spine -3.2, Left femur neck -2.0, Left femur total -2.0 Prolia started 2017 DEXA 05/2023: AP Spine -3.1, Left femur neck -2.0, Left femur total -2.1 Code(s): M81.0 - Age-related osteoporosis without current pathological fracture Category: Medical Qualifiers: Osteoporosis type: age-related Presence of current pathological fracture: without current pathological fracture Qualified Code(s): M81.0 - Age- related osteoporosis without current pathological fracture Plan: #Osteoporosis Patient with osteoporosis of the spine and osteopenia of the hip. Currently on Prolia. Last DEXA showed mild improvement at the spine but stable at the hip. We will need to repeat her DEXA this year. Of note her vitamin-D is low which could be affecting her bone building abilities. 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 Category: Medical Plan: #Long-term Use of Hydroxychloroquine Discussed with patient the risks and benefits of hydroxychloroquine in managing the rheumatic condition Benefits include: - Reduced pain, reduce mortality, maintenance of remission and reduction of flares Risks include: - GI upset, skin hyperpigmentation, retinal toxicity (especially after more than 5 years of use), myopathy Advised yearly ophthalmology visits (4) Encounter for monitoring denosumab therapy: Code(s): Z51.81 - Encounter for therapeutic drug level monitoring; Z79.620 - intermodal truck driver (current) use of immunosuppressive biologic Plan: #Long-term use of Denosumab Discussed with patient the risks and benefits of denosumab (Prolia) for the management of their osteoporosis Benefits include improved bone density, decreased fracture risk Risks include rapid bone loss if denosumab stopped, osteonecrosis of the jaw especially in patients with poor oral hygiene/diabetes/use of glucocorticoids/age greater than 65 years, atypical femoral fractures, injection site reactions. Mild increased risk of infections due to RANKL on T helper cells, increased risk of hypocalcemia especially in CKD patients Keep vitamin-D at least 35 ng/mL Advised to delay non emergent dental procedures to toward the end of the 6 month cycle and if they plan to stop denosumab would need to continue antiresorptive to maintain the effects of denosumabe Plan I spent 32 minutes reviewing the record and labs, taking a history, examining the patient, discussing the treatment plan, ordering diagnostic work up and documenting in the medical record Orders: Orders Complete Blood Count Auto Diff 6 Months M06.00 - Rheumatoid arthritis without rheumatoid factor, unspecified site Comprehensive Met. Panel 6 Months M06.00 - Rheumatoid arthritis without rheumatoid factor, unspecified site Erythrocyte Sedimentation Rate 6 Months M06.00 - Rheumatoid arthritis without rheumatoid factor, unspecified site T Spot TB 6 Months M06.00 - Rheumatoid arthritis without rheumatoid factor, unspecified site XR DEXA axial skeleton Today M81.0 - Age-related osteoporosis without current pathological fracture C Reactive Protein 6 Months M06.00 - Rheumatoid arthritis without rheumatoid factor, unspecified site Hepatitis A,B,C Profile 6 Months M06.00 - Rheumatoid arthritis without rheumatoid factor, unspecified site Medications: Refilled celecoxib 200 mg PO DAILY 90 caps 1RF M06.00 - Rheumatoid arthritis without rheumatoid factor, unspecified site hydroxychloroquine 200 mg PO DAILY 90 tabs 1RF M06.00 - Rheumatoid arthritis without rheumatoid factor, unspecified site, Z79.899 - 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 therapy cholecalciferol (vitamin D3) 1,250 mcg PO QWEEK 90 days 13 caps 1RF E55.9 - Vitamin D deficiency, unspecified Discontinued methotrexate sodium Discontinued Reason: Doctor's Order 10 mg (4 x 2.5 mg) PO QWEEK 90 days 52 tabs 1RF M06.00 - Rheumatoid arthritis without rheumatoid factor, unspecified site folic acid Discontinued Reason: Doctor's Order 5 mg (5 x 1 mg) PO DAILY 30 days 450 tabs 5RF M06.00 - Rheumatoid arthritis without rheumatoid factor, unspecified site leucovorin calcium take the day after you take methotrexate Discontinued Reason: Doctor's Order 5 mg PO QWEEK 12 tabs 1RF M06.00 - Rheumatoid arthritis without rheumatoid factor, unspecified site Coding Level of Care Code Est Pt Level 4 (07864) Complex EM visit Add On G2211 Diagnoses Seronegative rheumatoid arthritis M06.00 Age-related osteoporosis without current pathological fracture M81.0 Osteoporosis type: age-related Presence of current pathological fracture: without current pathological fracture Long-term use of hydroxychloroquine Z79.899 Encounter for monitoring denosumab therapy Z51.81; Z79.620
== END 2025-02-24 08:06 | disposition home or self-care (01) ==
LOC: HO.RHE 07:25
PROVIDERS: PCP Pediatrics; Visit Provider Student in an Organized Health Care Education/Training Program
DX: M06.00 Rheumatoid arthritis without rheumatoid factor, unspecified site (principal); M81.0 Age-related osteoporosis without current pathological fracture; Z79.899 Other long term (current) drug therapy; Z51.81 Encounter for therapeutic drug level monitoring; Z79.620 Long term (current) use of immunosuppressive biologic
CPT/HCPCS: 99214; G2211

== ENCOUNTER → 2025-02-24 07:24 | Outpatient (BNVA) | payer MEDICARE, SELFPAY | PROVIDERS: PCP Pediatrics; Visit Provider Student in an Organized Health Care Education/Training Program | DX: M81.0 Age-related osteoporosis without current pathological fracture (principal); M06.00 Rheumatoid arthritis without rheumatoid factor, unspecified site; E55.9 Vitamin D deficiency, unspecified; Z51.81 Encounter for therapeutic drug level monitoring; Z79.620 Long term (current) use of immunosuppressive biologic; Z79.899 Other long term (current) drug therapy | CPT/HCPCS: 99212 ==

== ENCOUNTER 2025-05-17 08:52 | Outpatient (REF) | payer MEDICARE, MEDICAID, SELFPAY ==
--- NOTE | ~2025-05-17 | MM_ITS ---
EXAMINATION: BONE DENSITOMETRY CLINICAL INDICATION: Age-related osteoporosis. COMPARISON: This is the patient's baseline examination. TECHNIQUE: Using a [employer] dual-energy x-ray absorptiometry was performed of the lumbar spine and left hip. The images are of good technical quality. Summary results are attached. FINDINGS: AP SPINE L1-L3: BMD 0.827 g/cm2, Z-score -0.9, T-score -2.9, . LEFT FEMUR, NECK: BMD 0.769 g/cm2, Z-score -0.2, T-score -0.9, . IDENTIFIED RISK FACTORS: Rheumatoid arthritis.. HISTORY OF FRACTURE: None listed. MEDICATIONS: Vitamin D MM/XR DEXA axial skeleton IMPRESSION: 1. DIAGNOSIS: Osteoporosis based on the lowest T-score value of -2.9 in the lumbar spine applying World Health Organization criteria. 2. 10-YEAR FRACTURE RISK PREDICTION, FRAX: Major osteoporotic fracture 7.4% and lumbar spine and 1.4% in left hip 3. Treatment Recommendations: NOF guidelines recommend consideration for treatment in postmenopausal women and men age 50 and older presenting with the following: -A hip or vertebral (clinical or morphometric) fracture. -T-score less than or equal to -2.5 at the femoral neck or spine after appropriate evaluation to exclude secondary causes. -Low bone mass at the hip or spine and a 10-year fracture probability by FRAX of greater than or equal to 3% for hip fracture or greater than or equal to 20% for major osteoporotic fracture based on the [place] adapted WHO algorithm. 4. Other Recommendations: All treatment decisions require clinical judgment and consideration of individual patient factors, including patient preferences, comorbidities, previous drug use, risk factors not captured in the fracture mottle and possible under overestimation of fracture risk by FRAX FUTURE SCAN RECOMMENDATION: People with diagnosed cases of osteoporosis or at high risk for fracture should have regular bone mineral density tests. For patients eligible for Medicare, routine testing is allowed once every 2 years. The testing frequency can be increased to one year for patients who have rapidly progressing disease, those who are receiving or discontinuing medical therapy to restore bone mass, or have additional risk factors. Electronically signed by: David Spence MD 05/18/2025 02:51 PM EDT
--- OUTSIDE RECORDS SUMMARY | 2025-05-17 09:22 | XMS_ITS | Data Portability ---
Author Organization [facility], , [facility] Address [address] [place] [address] Assessment Encounter Date Assessment Date Assessment LastModified [...] 1 gram tablet 2017 018 tia [facility]acy #[id number], [address] [place], [address], 8 10:33:16 Patient TargetsNo targets recorded. Patient Instructions Encounter Date Encounter Id Patient Instructions Last Modified By Organization Details Last Modified Time 01/07/2017 [id number] After a discussion of treatment and medication options, which included consideration of the best practices in medicine, a medical plan was provided. The patient's opinions and concerns were included in this treatment plan and goal. 1. TSH back to normal, will recheck every year at the [facility] 2. call me if you need any pain meds for your shoulder. [email or web address] Not available 01/07/2017 10:15:06 01/08/2017 [id number] Rest and ice for the next week Avoid any heavy lifting for 2 weeks Restart physical therapy in approximately 7-10 days Follow-up in 4 weeks for a recheck if still having pain Follow-up with your rhemuatologist Seek immediate attention for any redness, fevers, chills, worsening or severe pain, or any other concerning symptoms. Not available 01/08/2017 11:14:09 01/13/2018 [id number] well visit, wome n 50 to 65: [...] use sunblock consistently 4. review the website: [employer]yan[employer] to get more information on the Mediterranean [...] mammogram is up to date - at [facility] , yearly. 12. your bone density showed osteoporosis, 2016 and is treated by Dr Amador, who also orders the bone density test in 1-2 yrs. 13. Health care proxy discussed and form completed. copy in chart 14. OAB - follows urologist in [place] - Dr Davila once a year. Well controlled with meds. 15. PHA in 1 year. Repeat TSH in 6 mos, still in range but high normal. 16. RA - follows green end man, Dr Amador, and well controlled with meds. [...] en 0.4-4 .0 mIU/m L. Not Available [address], [address], 12/31/2016 16:09:34 01/09/20 18 01/09/2018 TSH, serum or plasm a TSH 5.33 uIU/m L 0.50-6 .00 The Ameri can Colle ge of Endoc rinol ogy and Ameri can Thyro id Assoc iatio n recom mend goal TSH value s betwe en 0.4-4 .0 mIU/m L. Not Available [address], [address], 01/09/2018 16:52:23 12/31/19 17 12/31/2016 XR, shoul [...] as above. Point of servic e - [facility] Electr onical ly signed Sampson Lynne daphne: Kee vivas MD [facility] (Imaging) [address] , [place], [address], 12/31/2016 16:47:45 04/01/20 17 03/25/2017 bone densi ty No observ ation record ed. [email or web address] arvind Not Available 04/01/2017 14:58:24 11/28/20 17 11/28/2017 [...] the sensit ivity of mammog paul. POS [id number] Electr onical ly Signed by: BRYN WILKINSON on 2016 4:04 PM Interp reted by: Bryn wilkinson MD Signed by: Bryn wilkinson MD Final result Id omkar/ dmo No worrie s or concer ns No family hx FLOR BAKER DEL CASTIL LO FLOR BAKER DEL CASTIL LO FLOR BAKER DEL CASTIL LO [email or web address] [facility] [address] [place] [address], [address], 12/07/2017 08:23:54 11/28/20 17 11/28/2017 MAMMO , scree melanie No observ ation record ed. [email or web address] [address], [address], 12/07/2017 08:23:54 Result Notes Documentation Provider Name and Address Organization Details Recorded Time Xr, Shoulder : OBSERVATION: 3 views of the right shoulder were obtained on this 61-year-old with pain but no trauma history. At least mild osteopenia is present. No fracture or dislocation is seen. No suspicious calcium deposition is seen. No glenohumeral osteoarthropathy is seen. Minimal acromioclavicular joint osteoarthropathy may be present. Impression: Minimal changes as above. Point of service [facility] Electronically signed Reading Physician: Almas Shelton MD [address] [place] [address], [phone], [facility] 12/31/2016 11:32:01 Problems Name Problem SNOMED Code Status Onset Date Resolution Date Notes Provider Name and Address Organization Details Recorded Time Gastroeso phageal reflux disease 752295202 Yoselin Shipman NP [address] [place], [place] [address] [place], [address], [facility] 6 10:51:24 Foot callus 278088991 Yoselin Shipman NP [address] [place], [place] [address] [place], [address], [facility] 6 10:51:24 Arthritis 8289562 Completed 11/05/2016 Removal Reason: revised Gerald Shelton MD [address] [place], [place] [address] [place], [address], [facility] 6 10:23:28 Increased frequency of urination 112350557 Completed 12/12/2018 Removal Reason: revised Gerald Shetlon MD [address] [place], [place] [address] [place], [address], [facility] 9 07:24:52 Hypothyro idism 89429001 Yoselin Shipman NP [address] [place], [place] [address] [place], [address], [facility] 6 10:45:01 Osteoporo sis 77397442 Yoselin Shipman NP [address] [place], [place] [address] [place] [address], [facility] 6 10:51:24 Abdominal mass 537608267 Active Leticia Shipman, CONCRETE VIBRATOR OPERATOR [address] [place] [address] [place], [address], [facility] 6 10:45:01 Vitamin D deficienc y 80111514 Active Leticia Shipman NP [address] [place] [address] [place], [address], [facility] 6 10:45:01 Rheumatoi d arthritis 42495549 Active 2015 Gerald Shelton MD [address] [place], [place] [address], [address], [facility] 6 10:23:06 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 Procedures Surgical History Date Name Laterality Status Provider Name and Address Organization Details Recorded Time 7 US Guided Biceps Tendon Sheath Injection completed Good Mast MD [address] [place] [address], [address], [facility] 01/08/2017 11:14:27 7 [address]: Therapeutic Exercise completed Ashley Sandoval Ms, PT [address] [place], [address], [facility] 12/31/2016 10:32:09 7 Treatment and Advice completed Ashley Sandoval Ms, PT [address] [place], [address], [facility] 12/31/2016 10:23:51 7 [address]: Therapeutic Exercise completed Ashley Sandoval Ms, PT [address] [place], [address], [facility] 12/24/2016 11:21:16 7 [address]: Manual Therapy completed Ashley Sandoval Ms, PT [address] [place], [address], [facility] 12/24/2016 11:22:43 7 Treatment and Advice completed Ashley Sandoval Ms, PT [address] [place], [address], [facility] 12/24/2016 11:25:02 7 Physical Activity Counselling completed Ashley Sandoval Ms, PT [address] [place], [address], [facility] 12/17/2016 11:08:01 7 [address]1221: PT Eval Low Complexity completed Ashley Sandoval Ms, PT [address] [place], [address], [facility] 12/17/2016 11:07:53 7 Treatment and Advice completed Ashley Sandoval Ms, PT [address] [place], [address], [facility] 12/17/2016 11:14:15 6 IV Therapy completed Jeanne Wills RN BSN [address] [place], [address], [facility] 04/19/2016 15:53:35 4 Colonoscopy completed Gerald Shelton MD [address] [place], [address], [facility] 11/07/2016 17:53:53 Imaging Results None recorded. Procedure Notes None recorded. Medical Equipment None [...] Available Not Available Not Available Fluzone Quad (P F) 60 mcg(15 mcgx4)/0. 5 mL intramusc ular syringe active Not Available Not Available Not Available Vitals Date Recorded Body height Body weight Body mass index (BMI) Heart rate Systolic blood pressure Diastolic blood pressure Provider Name and Address Organization Details Last Updated DateTime 7 158.115 cm 38566.7 5 g 22.7 kg/m2 72 /min 116 mm[Hg] 78 mm[Hg] Teena Calvin [facility] 7 09:51:41 Date Recorded Body height Heart rate Systolic blood pressure Diastolic blood pressure Provider Name and Address Organization Details Last Updated DateTime 01/08/2017 158.115 cm 68 /min 110 mm[Hg] 78 mm[Hg] Berenice Bailon [facility] 01/08/2017 09:16:13 Date Recorded Body weight Body mass index (BMI) Body height Heart rate Systolic blood pressure Diastolic blood pressure Provider Name and Address Organization Details Last Updated DateTime 8 35688.9 6 g 22.4 kg/m2 158.12 cm 72 /min 120 mm[Hg] 78 mm[Hg] Teena Calvin [facility] 8 09:58:21 Social History Question Answer Notes LastModified by Organizat ion Details LastModified Time Tobacco Smoking Status Never Smoker 04/19/2016 Jeanne Wills PHYSICIAN OBSTETRICIAN [address] [place] [address], [address], [facility] 12/15/2015 13:30:46 Do You Wear A Helmet When Biking? No N/a [email or web address] Information not available 04/07/2015 How Much Tobacco Do You Chew? None [email or web address] Information not available 04/07/2015 What Type Of Diet Are You Following? REGULAR Information not available 04/07/2015 Which Illicit Or Recreational Drugs Have You Used? Denies 04/19/2016 Information not available 12/19/2014 Education 12 Information no t available 12/19/2014 Are There Any Guns Present In Your Home? No Information not available 12/19/2014 Live Alone Or With Others? Alone [place] Information not available 12/19/2014 Patient Has Health Care Proxy Signed And In Chart No Will Be Sctotie [phone]; Form Given 01/13/2018 [email or web address] Information not available 10/29/2018 Marital Status Informatio n not available 12/19/2014 Mosquito Repellent Used Routinely Yes [email or web address] Information not available 04/07/2015 What Was The Date Of Your Most Recent Tobacco Screening? 01/13/2018 Information not available 06/23/2019 How Many Children Do You Have? 2 , 1 ; 1983 Scottie (girl); 1985 Gavino (boy); Live In [place] Information not available 12/19/2014 Seat Belts Used Routinely Yes Information not available 12/19/2014 Are You Sexually Active? No Information not available 12/19/2014 Smoke Alarm In Home Yes [email or web address] Information not available 04/07/2015 General Stress Level Medium Information not available 04/07/2015 Do You Use Sunscreen Routinely? Yes [email or web address] Information not available 04/07/2015 Sex: Unknown Functional Status Question Answer Note LastModified by Organizat ion Details LastModified Time What is your level of alcohol consumption? None 04/19/2016 [email or web address] Information not available 12/19/2014 What is your occupation? not working [email or web address] Information not available 10/31/2015 Mental Status None recorded. Family History Relationship [...] virus, quadrivalent, PF 5 completed Not Available [facility] 12/18/2019 02:20:10 Tdap 6 completed Not Available [facility] 12/18/2019 02:26:07 Influenza, split virus, quadrivalent, PF 6 completed Not Available [facility] 12/18/2019 02:25:05 influenza nasal, unspecified formulation 4 completed Yanet Gamboa M.D. [address] [place] [address], [address], [facility] 12/19/2014 12:06:42 Influenza, split virus, quadrivalent, PF 7 completed Not Available [facility] 12/18/2019 02:22:05 Past Encounters Encounter ID Performer Location Encounter Start Date Encounter Closed Date Diagnosis/Indication Diagnosis SNOMED-CT Code Diagnosis ICD10 Code Diagnosis Note [id number] Yanet Gamboa M.D. , [facility], OFF[address] [place] [address] 12/19/2014 11:14:54 12/19/2014 12:20:48 Gastroesophageal reflux disease 740208906 in past: total of omeprazole x 6 mo as of 12/2014: 3 mo of pantoprazo le sucralfate this combo helps will continue ppi for no more than 5 years get GI records for labs eval and egd and cscope Foot callus 183322790 am monium lactate lotion 12% bid helps as does a top steroid flucoinoid e 0.05% (?would consider tapering to lower dose and or changing to antifungal ) Arthritis 5656502 record s from [facility] requested not clear dx at thispoint but on Celebrex, plaquenil (10/2014 optho ok) lv 10/2014, seeing 01/2015 mostly wrists, toes Increased frequency of urination 452421136 4 times/nigh t every 2 hours during the day oxybutynin 30mg daily x 1 year was on prior med as well Hypothyroidism 28535286 need records per pt she is not on replacemen t Osteoporosis 56883175 st ates gets dexa q2 years states treatment x 1 dose only for her osteoporos is but stopped due to GERD by karel [id number] Luis Faulkner MD , [facility], [address] [place] [address] 02/06/2015 17:16:06 02/06/2015 17:46:51 Acute laryngitis 3557787 [id number] Yanet Gamboa M.D. , [facility], [address] [place] [address] 04/07/2015 09:34:16 04/07/2015 10:52:18 Allergic rhinitis 42420619 struggling discussed supportive care nasal steroid helped in past zytec prn alalway prn Osteoporosis 79924372 st ates gets dexa q2 years states treatment x 1 dose only for her osteoporos is but stopped due to GERD by karel as of 03/2015 reclast injection getting records today encouraged ca/vit D and Colace prn Increased frequency of urination 762263797 4 times/nigh t every 2 hours during the day oxybutynin 30mg daily x 1 year, off as of 2014 davila visit f/up with uro as scheduled Hypothyroidism 83294422 resolved per pt per pt she is not on replacemen t will resume standard infreq tsh screening Gastroesop hageal reflux disease 331152053 in past: total of omeprazole x 6 [...] cscope wnl, egd w/ chronic gastritis Arthritis 4755481 record s from [facility] requested not clear dx at thispoint but on Celebrex, plaquenil (10/2014 optho ok) mostly wrists, toes Foot callus 299771526 am monium lactate lotion 12% bid helps as does a top steroid flucoinoid e 0.05% this combo works for her will cont for now but low threshold for pods opinion Epidermoid cyst 784163102 59 yo F w/ limited Sammarinese w/ likely scattered epidermoid cysts on R neck x 2 , L chest wall; breast border; per pt she would like them removed if possible; normal mammo 10/2014 [id number] Gerald Shleton MD , [facility], [address] [place] [address] 09/05/2015 11:05:15 09/05/2015 13:39:10 Abdominal mass 458757062 R19.00 1 cm firm mobile mass RLQ approx. 3 lat and slightly above umb. [id number] Yanet Gamboa M.D. , [facility], [address] [place] [address] 09/18/2015 13:49:22 09/19/2015 06:51:40 Screening for disorder 023231770 Z72.89 routine screening with labs Lipoma 19237045 D17.9 60 yo F Green[place]ic speaking woman (Sammarinese reasonable ) uncomforta ble lipoma +/-sebaceo us [...] and certainly may represent a lipoma. Bunion 381120574 M20.12 pt wishing for another referral to pods for orthotics vs surg recs, R foot great toe; told in past needs surg, 60 yo F parital Sammarinese, Green[place]ic primary lang Active or passive immunization 785260211 Z23 Tdap prescripti on needed fro Medicare and [employer] Osteoporosis 03040778 M8 1.0 states gets dexa q2 years w/ [facility] states treatment x 1 dose only for her osteoporos is but stopped due to GERD by vinson reclast injection every march re-est care w/ kassie sigifredo while pcp on leave encouraged ca/vit D and Colace prn and wt bearing exercise Gastroesop hageal reflux disease 081641522 K21.9 in past: total of omeprazole x [...] mo cscope wnl, egd w/ chronic gastritis [id number] Leticia Shipman NP , [facility], [address] [place] [address] 10/31/2015 11:01:36 10/31/2015 12:10:50 Adult health examination 955098941 Z00.00 see Risk Assessment and Lifestyle Change Counseling section above Gastroesop hageal reflux disease 659519802 K21.9 ranitidine BID, tolerating well Lipoma 71877555 D17.9 Saw general surgeon - has follow up in December Bunion 435654170 M20.10 Has not made an appointmen t. Will call to set up an appointmen t today Osteoporosis 71106673 M8 1.0 keep appointmen t with Dr. Bey in December Arthritis 0015685 M19.[address] Cifuentes to someone in [place] Has an appointmen t apr 07 2015 Hypothyroidism 75682523 E03.9 at goal with no medication s. check yearly Increased frequency of urination 621954909 R35.0 saw urology a couple months ago. Was to start vesicare but it was not covered. has follow up next month. may start vesicare after discussing with urologist Visual impairment 881369 003 H54.7 near sighted. Has an appointmen t in January in [place] Foot callus 823623125 L8 4 [id number] Hesham Bey MD Endocrino logy, [facility] [address] [place] [address] 12/15/2015 13:08:36 12/15/2015 14:07:35 Osteoporosis 49846142 M81.0 -increase calcium by pills 500 to 600mg 2 times daily -vitamin d 1000 to 2000units daily -use the right type of calcium for your stomach, try different brands until you feel well, some people like calcium chews -balance exercises, such as benito chi or yoga -reclast next due 04/15, will order in March for delivery to [facility], will not administer until labs result and kidney function is normal Vitamin D deficiency 347 98222 E55.9 [id number] Hesham Bey MD Endocrino logy, [facility] [address] [place] [address] 04/19/2016 12:53:22 04/19/2016 14:38:34 Osteoporosis 55819681 M81.0 -increase calcium 500mg by mouth 2 times daily-clar rashida vitamin d dose and target greater luke 30ng/mL-ba fawad exercises- zoledronat e today-dxa and labs 1y, clinic 53 weeks, to reconsider additional reclast then Vitamin D deficiency 347 34254 E55.9 -vitamin d Long-term drug therapy 929338812 Z79.899 assisted bisphospho cheri use [id number] Leticia Shipman NP FP, [facility], [address] [place] [address] 05/07/2016 09:45:22 05/07/2016 10:37:50 Foot callus 297436289 L84 Active or passive immunization 220630249 Z23 Osteoporosis 42358735 M8 1.0 Bunion 587045288 M20.10 will contact podiatry if she decides on surgeru Gastroesop hageal reflux disease 715835244 K21.9 ranitidine BID, tolerating well [id number] Gerald Shelton MD , [facility], OFFICE [address] [place] [address] 11/05/2016 09:48:19 11/05/2016 10:51:59 Adult health examination 803768048 Z00.00 see Risk Assessment and Lifestyle Change Counseling section above Screening for malignant neoplasm of cervix 979329252 Z12.4 Active or passive immunization 915037522 Z23 Osteoporosis 94422243 M8 1.0 Rheumatoid arthritis [address] Manriquez Dry skin 87237158 L85.3 Eruption 642145197 R21 Thyroid fu nction tests abnormal 536558468 R94.6 [id number] Gerald Shelton MD , [facility], OFFICE [address] [place] [address] 12/03/2016 10:15:34 12/03/2016 11:18:37 Bursitis of shoulder 414161950 M75.51 [id number] Ashley Sandoval Ms, PT Physical Therapy, [address] [address] 12/17/2016 10:28:49 12/17/2016 11:40:08 Bursitis of shoulder 844363506 M75.51 [id number] Ashley Sandoval Ms, PT Physical Therapy, [address] [address] 12/24/2016 10:26:57 12/24/2016 12:04:14 Bursitis of shoulder 544895992 M75.51 [id number] Ashley Sandoval Ms, PT Physical Therapy, [address] [address] 12/31/2016 09:46:15 12/31/2016 10:44:47 Bursitis of shoulder 462965965 M75.51 [id number] Gerald Shelton MD , [facility], OFFICE [address] [place] [address] 01/07/2017 09:25:04 01/07/2017 10:16:36 [facility] 60351137 E03.9 Rheumatoid arthritis [address] Manriquez Shoulder joint pain 2679 05390 M25.096 [id number] Good Mast MD Sports Medicine, [address] [address] 01/08/2017 09:08:01 01/08/2017 10:44:53 Pain of shoulder region 10876112 M25.511 Tori is a 61-year-ol d female [...] if she is having persistent discomfort . [id number] Gerald Shelton MD , [facility], OFFICE [address] [place] [address] 09/24/2017 08:56:36 09/24/2017 10:02:37 Active or passive immunization 525089536 Z23 [id number] MD MYRNA Yanes, [facility], OFFICE [address] [place] [address] 01/13/2018 09:44:24 01/13/2018 10:41:59 Adult health examination 808786887 Z00.00 see Risk Assessment and Lifestyle Change Counseling section above Rheumatoid arthritis [address] Manriquez Bladder mu scle dysfunction - overactive 777375917 N32.81 Gastroesop hageal reflux disease 334621358 K21.9 Vitamin D deficiency 347 60912 E55.9 Osteoporosis 77505420 M8 1.0 Herpes labialis 5452557 B00.1 Hypothyroidism 73832615 E03.9 Health Concerns Section Related Observation LastModified by Organization Detai ls LastModified Time None Recorded Concern Status LastModified by Organization Details LastModified Time None Recorded Advance Directives Directive None Recorded Payers Insurance Date Sequence Insurance Name Policy Number Policy Mccarthy Covered Member ID Mccarthy Member ID Guarantor Name 03/24/2018 2 [place] [facility] Tono [place]o [id number] Tono Gene 01/12/2019 1 [place] PRIOR TO 2023 - [facility] (MEDICAID) Tono Gene [id number] Tono [place]o 12/17/2016 2 [place] [facility] Brittney morrell Gene [id number] Tono Gene 12/17/2016 1 [facility] (MEDICAID HMO) Gene ArshJuanyvrose morrell [id number] Tono [place] 05/24/2020 1 [place] [facility] Tono Mills [id number] Tono Gene 01/29/2018 1 [facility] CAREPLUS - CAREPLUS A (MEDICAID HMO) [id number] Tono Gene [id number] Tono Gene Notes Date Note Type Note Provider Name and Address Organization Details Recorded Time 12/31/2016 text/html Shoulder same. D id the x-ray before coming here. Ashley Sandoval Ms, PT [address] [place] [address], [place], [address], [facility] 12/31/2016 10:40:18 01/07/2017 text/html Pt here for [...] of the blood draw. Gerald Shelton MD [address] [place] [address], [address], [facility] 01/07/2017 10:16:40 01/08/2017 text/html Tori is a [...] she is under the care of a green end man. Good Mast MD [address] [place] [address], [address], [facility] 01/08/2017 11:15:00 01/13/2018 text/html Physical Exam/FemaleReported bypatient.Anabel [...] for high velocity activiities Gerald Shelton MD [address] [place] [address], [address], [facility] 01/13/2018 19:29:55 OBGyn Episode No OBEpisode recorded.
== END 2025-05-17 08:53 | disposition home or self-care (01) ==
LOC: HO.MAMMO 08:52
PROVIDERS: PCP Pediatrics; Visit Provider Student in an Organized Health Care Education/Training Program
DX: M81.0 Age-related osteoporosis without current pathological fracture (principal)
CPT/HCPCS: 77080

== ENCOUNTER → 2025-05-17 09:15 | Outpatient (BNV) | payer MEDICARE, MEDICAID, SELFPAY | PROVIDERS: PCP Pediatrics; Visit Provider Radiology Diagnostic Radiology | DX: E28.39 Other primary ovarian failure (principal) | CPT/HCPCS: 77080 ==

== ENCOUNTER 2025-08-25 09:24 | Outpatient (REF) | payer MEDICARE, MEDICAID, SELFPAY ==
--- NOTE | ~2025-08-25 | XR_ITS ---
EXAMINATION: XR CHEST CLINICAL INFORMATION: R76.11 - Nonspecific reaction to tuberculin skin test without active tub... COMPARISON: None available. TECHNIQUE: 2 views of the chest were obtained. FINDINGS: No significant abnormality is noted involving the heart, lungs, mediastinum, bony thorax or soft tissues. XR/XR chest 2V IMPRESSION: No acute disease Electronically signed by: Thomas Irwin MD 08/25/2025 12:04 PM EDT
--- OUTSIDE RECORDS SUMMARY | 2025-08-25 15:23 | XMS_ITS | Encounter Summary ---
Author Organization [facility] Address [address] [place] [id number] Phone Care Team Providers Care Needlemaker Name Role Phone Gricel Anglin MD Unavailable [phone] Chris Kruger CNP Primary Care Provider [phone] Sultana Sheriff MD Unavailable [phone] Thong Hawkins MD Unavailable [phone] Coleman Amador MD Unavailable Willa Davila MD Unavailable [phone] Mari Hernandez MD Primary Care Provid er Zee Martinez MD Primary Care Provider [phone] Yancy Osuna MD Primary Care Provid er Encounter Details Date Type Department Care Team (Late st Contact Info) Description 11/28/2017 Ancillary Orders Virtual Department [address] [place] [address] Gerald Robledo MD [address] [place] [address] [phone] [email or web address] Breast screening Social History Tobacco Use Types Packs/Day Years Used Date Smoking Tobacco: Never Assessed Comments No Sex and Gender Information Value Date Recorded Sex Assigned at Not on file Legal Sex Female 9:55 PM EDT Gender Identity Not on file Sexual Orientation Not on file documented as of this encounter Plan of Treatment Not on file documented as of this encounter Results * BI MAMMOGRAM SCREENING WITH TOMOSYNTHESIS WITH CAD (BILATERAL) (11/28/2017 10:26 AM EST) Anatomical Region Laterality Modality Breast Left, Breast Right, Breast Bilateral Bila teral Mammography 11/28/2017 4:00 PM EST Impressions 11/28/2017 4:04 PM EST No findings suspicious for malignancy are identified. In the absence of a worrisome palpable abnormality, annual screening mammography is recommended. BI-RADS CATEGORY: 1 - Negative. DENSITY: The breast tissue is heterogeneously dense, an appearance which lowers the sensitivity of mammography. POS [id number] Narrative 11/28/2017 4:04 PM EST COMPARISON: 08/12/2011 through 11/08/2016 Bilateral 3-D tomosynthesis with 2-D reconstructions in the CC and MLO projection. Computer-aided detection system also utilized. No new mass, asymmetry, architectural distortion or suspicious calcifications have become apparent on either side. Procedure Note Bryn Allen MD - 11/28/2017 COMPARISON: 08/12/2011 through 11/08/2016 Bilateral 3-D tomosynthesis with 2-D reconstructions in the CC and MLOprojection. Computer-aided detection system also utilized. No new mass, asymmetry, architectural distortion or suspiciouscalcifications have become apparent on either side. IMPRESSION: No findings suspicious for malignancy are identified. In the absence of aworrisome palpable abnormality, annual screening mammography isrecommended. BI-RADS CATEGORY: 1 - Negative. DENSITY: The breast tissue is heterogeneously dense, an appearance whichlowers the sensitivity of mammography. POS [id number] Gerald Bronson MD IMG MG EXAMS Fi nal Result documented in this encounter Visit Diagnoses Diagnosis Breast screening Breast screening, unspecified Breast screening Breast screening, unspecified documented in this encounter Care Teams Needlemaker Relationship Specialty Start Date End Date Chris Kruger CNP [address] [facility] [place] [address] [email or web address] PCP - General Family Medicine 03/11/18 07/13/18 Mari Hernandez MD [address] [place] [address] PCP - General Internal Medicine 07/14/18 07/14/22 Zee Martinez MD [address] [facility] [place] [address] [email or web address] PCP - General Family Medicine 07/15/22 01/29/24 [place] [address] [address] PCP - General Internal Medicine 01/30/24 Gricel Anglin MD [address] [facility] [place] [address] [email or web address] Family Medicine 03/11/18 Sultana Sheriff MD [address] [place] [address] [address] [place] [address] Ophthalmology 03/11/18 Thong Hawkins MD [address] [place] [address] [address] [place] [address] [email or web address] Gastroenterology 03/11/18 Coleman Amador MD [address] [place] [address] Rheumatology 03/11/18 Willa Davila MD [address] [place] [address] [email or web address] Surgeon Urology 03/11/18 documented as of this encounter Additional Source Comments The information contained in this document represents components of the legal health record. It is not the complete legal health record.[facility]
--- OUTSIDE RECORDS SUMMARY | 2025-08-25 15:23 | XMS_ITS | Clinical Summary ---
Author Organization [facility] Address [address] [place] [id number] Phone Care Team Providers Care Robot Technician Name Role Phone Gricel Anglin MD Unavailable [phone] Sultana Sheriff MD Unavailable [phone] Thong Hawkins MD Unavailable [phone] Coleman Amador MD Unavailable Willa Davila MD Unavailable [phone] Yancy Trent MD Primary Care Provid er Allergies No known active allergies Medications cetirizine (ZYRTEC) 10 MG tablet Take 10 mg by mouth as needed. Active denosumab (PROLIA SUBQ) Inject under the skin every 6 (six) months. 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 90 capsule 1 2 Active folic acid (FOLVITE) 1 MG tabletIndication s:Rheumatoid arthritis of multiple sites with negative rheumatoid factor,assisted methotrexate user Take 5 tablets (5 mg total) by mouth daily. 450 tablet 3 2 Active omeprazole (PRILOSEC) 20 MG capsule TAKE 1 CAPSULE(20 MG) BY MOUTH DAILY 90 capsule 3 3 Active cholecalciferol (VITAMIN D3) 25 MCG (1,000 unit) tablet Take 1,000 Units by mouth daily. 5,000 Active eszopiclone (LUNESTA) 1 MG Tab Take 1 tablet (1 mg total) by mouth nightly at bedtime. Take immediately before bedtime 30 tablet 1 3 Active clobetasol (TEMOVATE) 0.05 % creamIndications :Irritant contact dermatitis, unspecified trigger apply topically to the affected area twice daily 30 g 3 Active Active Problems Problem Noted Date Diagnosed Date Dry eye 07/17/2023 Assessment & Plan (07/17/2023 12:20 PM EDT): We discussed it is not uncommon to develop sicca syndrome when you have underlying rheumatoid arthritis. Her RA is generally well controlled on the methotrexate and the Plaquenil but she might benefit from some Restasis. She is going to follow-up with her eye doctor. Other insomnia 07/17/2023 Assessment & Plan (07/17/2023 12:21 PM EDT): Discussed sparing use of sedative hypnotic medication. Goiter 01/16/2023 Irritant contact dermatitis 07/15/2022 Assessment & Plan (07/15/2022 10:17 AM EDT): Not sure what is triggering, but there is clearly an irritant. Discussed w pt, she will be consistent with her cream use and follow up if not improving Rheumatoid arthritis of mult iple sites with negative rheumatoid factor 06/24/2022 Assessment & Plan (01/16/2023 9:13 AM EST): Seeing [facility] every 3 months, pain is under control with current medications Assessment & Plan (06/24/2022 10:17 PM EDT): New set of lab work requested today and prior to next visit in 2 months-standing orders in [facility]. Carefully continue current medications exactly as prescribed-refills sent to her pharmacy. Joint protection, energy conservation. Gentle, regular exercise routine as tolerated preferably after warm pack or warm shower. Avoid falls, injuries, overuse and sick contacts. Call if problems or questions. 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 Refrain from alcohol drinking while on methotrexate. Hold methotrexate whenever running fever, feeling sick or taking antibiotics. Complete entire course of antibiotic and wait at least 48 hours after the last dose to make sure that symptoms do not return before restarting methotrexate on its usual weekly dosing schedule. Continue folic acid 5 mg daily for chronic macrocytosis and methotrexate use. Monitor for breathing difficulty, chest pain or coughing, abdominal pain, nausea, diarrhea Return for regular monitoring labs at least every 2-3 months-standing orders in [facility]. Long-term use of Plaquenil 06/24/2022 Assessment & Plan (06/24/2022 10:21 PM EDT): Daily sun protection all year round. Regular eye checkups at least every 12 months. NSAID long-term use 06/24/2022 Assessment & Plan (06/24/2022 10:21 PM EDT): Take the lowest dose, with least frequency, for shortest time. Remember to take it always with food. Favor topical over oral preparations. Favianionette 03/11/2018 Herpes labialis 03/11/2018 Overview (03/11/2018): Occasional oral HSV treated with Valtrex Vitamin D deficiency 03/11/2018 Assessment & Plan (06/24/2022 10:10 PM EDT): Serum level requested to make sure that she does not require additional supplementation to keep it in an optimal range: 40-45 ng/ml. Age-related osteoporosis wit hout current pathological fracture 03/11/2018 Overview (03/11/2018): Followed by rheumatology (Dr. Amador). Assessment & Plan (06/24/2022 10:15 PM EDT): According to her report Prolia injection was in December 2021 but she could not recall the exact date. According to [facility] touch up worker office note from 04/17/2022 BMD from March 2021 revealed lumbar spine T score -3.2 and she is on Prolia since 2017. Continue proper calcium vitamin D supplementation, daily weightbearing exercises, fall and fracture prevention strategies. Order Prolia for her next every 6 months injection once approved by her insurance. Abnormal thyroid blood test Overview (03/11/2018): TPO antibody 23 (2017). TSH 5-10. Assessment & Plan (01/16/2023 12:52 PM EST): Hx of abnormal thyroid labs without treatment, will recheck at this time. GERD (gastroesophageal reflux disease) Assessment & Plan (06/24/2022 10:18 PM EDT): Avoid late, large, spicy meals. Keep headboard elevated at 45 angle for nighttime. Rheumatoid arthritis Resolved Problems Problem Noted Date Diagnosed Date Resolved Date Right lower quadrant abdominal mass 03/11/2018 03/11/2018 Bursitis 03/11/2018 03/11/2018 Acquired hallux valgus 03/11/201803/11 Encounters Date Type Department Care Team Description 08/18/2025 9:31 AM EDT - 08/18/2025 11:59 PM EDT Hospital Encounter [facility] Laboratory [address] [place] [address] Lucy Porter MD Discharge Disposition: Home or Self Care 08/18/2025 Transcribe Orders [facility] [address] [place] [address] Lucy Porter MD Need for hepatitis B screening test (Primary Dx); Senile osteoporosis; Seronegative rheumatoid arthritis 06/06/2025 9:00 AM EDT - 06/06/2025 11:59 PM EDT Hospital Encounter [address] [address] Yancy Trent MD Discharge Disposition: Home or Self Care 12/13/2024 Procedure Pass [address] [address] from Last 3 Months Immunizations Immunization Administration Dates Next Due Influenza Quadrivalent Preservative Free IM 09/01 Tdap 05/07/2016 Family History Medical History Relation Comments No Known Problems Daughter Other Father Unknown cause of , possible stomach cancer. Possible smoker. Osteoporotic fracture Mother Diabetes Sister 1 Hypertension Sister 1 Obesity Sister 1 Hypertension Sister 2 Obesity Sister 2 Hypertension Sister 3 No Known Problems Son Breast cancer Neg Hx Colon cancer Neg Hx Relation Status Comments Brother 1 Alive Brother 2 Alive Daughter Alive Father (Age 45) Mother Alive Sister 1 Alive Sister 2 Alive Sister 3 Alive Sister 4 Alive Son Alive Social History Tobacco Use Types Packs/Day Years Used Date Smoking Tobacco: Never Smokeless Tobacco: Never Tobacco Cessation:Counseling Given: Not Answered Alcohol Use Standard Drinks/Week Comments No 0 (1 standard drink = 0.6 oz pur e alcohol) Child or Family Care Answer Date Record ed Do you have problems with on e of the following making it difficult for you to work, study, or receive health care? No 07/15/2022 Education Answer Date Recorded Are you interested in more education? Not on theo e 07/27/2024 Are you concerned about learning? Not on file 07/27/2024 No 07/27/2024 No 07/27/2024 Food Answer Date Recorded Within the past 6 months we worried whether our food would run out before we got money to buy more. Sometimes True 022 Food didn't last Not on file 07/15/2022 Residential Stability Answer Date Recor ded What is your housing situation today? I choose n ot to answer 07/15/2022 How many times have you move d in the past 12 months? Zero (I did not move) 07/15/2022 Paying for Meds Answer Date Recorded Do you have trouble paying for medicines? I kortney se not to answer 07/15/2022 Paying Utility Bills Answer Date Record ed Do you have trouble paying y our heating or electricity bill? I choose not to answer 07/15/2022 Transportation Answer Date Recorded Has the lack of transportati on kept you from medical appointments or from getting medications? Yes 07/15/2022 Unemployment Answer Date Recorded Are you currently unemployed or working on a part-time or temporary basis, and looking for work? No 07/15/2022 Digital Access Answer Date Recorded No 04/26/2023 No 04/26/2023 Reliable internet access at home? Not on file 04/26/2023 Device with a working camera? Not on file Intimate Partner Violence Answer Date R ecorded Are you denied basic needs s uch as food, clothing, or medical care? No 04/02/2024 In the past 12 months have y ou been in a relationship with a person who hurts, threatens, or tries to control you? No 04/02/2024 Are you denied basic needs s uch as food, clothing, or medical care? No 04/02/2024 In the past 12 months have y ou been in a relationship with a person who hurts, threatens, or tries to control you? No 04/02/2024 Comments No Sex and Gender Information Value Date Recorded Sex Assigned at Not on file Legal Sex Female 9:55 PM EDT Gender Identity Not on file Sexual Orientation Not on file Last Filed Vital Signs Vital Sign Reading Time Taken Comments Blood Pressure 107/47 04/06/2024 8:34 AM EDT Pulse 64 04/06/2024 8:34 AM EDT Temperature 36 C (96.8 F) 04/06/2024 8:34 AM EDT Respiratory Rate 17 04/06/2024 8:34 AM EDT Oxygen Saturation 98% 04/06/2024 8:34 AM EDT Inhaled Oxygen Concentration - - Weight 54.4 kg (120 lb) 04/02/2024 2:34 PM EDT Height 157.5 cm (5' 2 ) 04/02/2024 2:34 PM EDT Body Mass Index 21.95 04/02/2024 2:34 PM EDT Plan of Treatment Health Maintenance Due Date Last Done Comments DEPRESSION SCREENING 1967 COLOGUARD 2000 FIT TEST 2000 FOBT 2000 SIGMOIDOSCOPY 2000 VIRTUAL COLONOSCOPY 2000 RSV VACCINE (1 - Risk 60-74 years 1-dose series) 2015 INFLUENZA VACCINE (#1) 2025 , 09/13/2022, 08/22/2021, Additional history exists COVID-19 VACCINE ( season) 2025 09/12/2023, 09/12/2022, 03/11/2022, Additional history exists MAMMOGRAM 06/06/2027 06/06/2025, 0407/2024, 02/28/2023, Additional history exists LIPID PANEL 11/20/2027 11/20/2022 Adult Td,Tdap Booster 01/28/2034 01/29/2024, 016 COLONOSCOPY 04/06/2034 04/06/2024, 01/01, 01/11/2014 COLORECTAL CANCER SCREENING 04/06/2034 OSTEOPOROSIS SCREENING INITIAL (ONE-TIME) Completed 03/25/2017 PNEUMOCOCCAL VACCINES (50+ years) Completed 01/18/2023 ZOSTER VACCINES Completed 07/18/2023, 01/18/2023 SMOKING STATUS SCREENING (Once After 26 Yrs) Completed 06/06/2025 HEPATITIS C SCREENING Completed 08/18/2025, 023 HIB VACCINES Aged Out No longer eligi ble based on patient's age to complete this topic MENINGOCOCCAL VACCINES (ACWY) Aged Out No longer eligible based on patient's age to complete this topic MENINGOCOCCAL VACCINES (B) Aged Out N o longer eligible based on patient's age to complete this topic Medical Devices Not on file Procedures Procedure Name Priority Date/Time Associated Diagnosis Comments HEPATITIS B SURFACE ANTIBODY Routine 08/18/2025 10:00 AM EDT Need for hepatitis B screening test C-REACTIVE PROTEIN Routine 08/18/2025 10 :00 AM EDT Need for hepatitis B screening test Senile osteoporosis Seronegative rheumatoid arthritis SEDIMENTATION RATE (ESR) Routine 08/18/2025 10:00 AM EDT Need for hepatitis B screening test Senile osteoporosis Seronegative rheumatoid arthritis COMPREHENSIVE METABOLIC PANEL Routine 08/18/2025 10:00 AM EDT Need for hepatitis B screening test Senile osteoporosis Seronegative rheumatoid arthritis CBC AND DIFFERENTIAL Routine 08/18/2025 10:00 AM EDT Need for hepatitis B screening test Senile osteoporosis Seronegative rheumatoid arthritis 25-OH VITAMIN D Routine 08/18/2025 10:00 AM EDT Need for hepatitis B screening test Senile osteoporosis Seronegative rheumatoid arthritis T SPOT TB TEST Routine 08/18/2025 10:00 AM EDT Need for hepatitis B screening test Senile osteoporosis Seronegative rheumatoid arthritis HEPATITIS A ANTIBODY, IGM Routine 08/18/2025 10:00 AM EDT Need for hepatitis B screening test Senile osteoporosis Seronegative rheumatoid arthritis HEPATITIS A ANTIBODY, TOTAL Routine 08/18/2025 10:00 AM EDT Need for hepatitis B screening test Senile osteoporosis Seronegative rheumatoid arthritis HEPATITIS B SURFACE ANTIGEN Routine 08/18/2025 10:00 AM EDT Need for hepatitis B screening test HEPATITIS C ANTIBODY, QUALITATIVE Routine 08/18/2025 10:00 AM EDT Need for hepatitis B screening test Senile osteoporosis Seronegative rheumatoid arthritis BI MAMMOGRAM SCREENING WITH TOMOSYNTHESIS WITH CAD (BILATERAL) Routine 06/06/2025 9:23 AM EDT Breast screening ENDOSCOPY, COLON 04/06/2024 8:12 AM EDT LIPID PANEL Routine 11/20/2022 9:53 AM EST Screening for hyperlipidemia OUTSIDE BONE DENSITY SCREENING Routine 03/25/2017 from Last 3 Months or Most Recently Relevant to Health Maintenance Results * (ABNORMAL) HEPATITIS A ANTIBODY, TOTAL (08/18/2025 10:00 AM EDT) Pathologist [facility] HAV TOTAL AB Reactive(A ) NON-REACTI VE [facility] Blood 08/18/2025 10:0 0 AM EDT 08/18/2025 10:04 AM EDT Lucy Porter MD LAB BLOOD ORDER ANG Final Result Performing Organization Address City/[facility]/ZIP Co de Phone Number [address] [address] * (ABNORMAL) Hepatitis A antibody, IgM (08/18/2025 10:00 AM EDT) [facility] Hepatitis A Antibody, IgM Reactive(A ) NON-REACTI [facility] Blood 08/18/2025 10:0 0 AM EDT 08/18/2025 10:04 AM EDT Lucy Porter MD LAB BLOOD ORDER ANG Final Result Performing Organization Address [facility] Co de Phone Number [address] [address] * Comprehensive metabolic panel (08/18/2025 10:00 AM EDT) [facility] SODIUM 138 133 - 146 mmol/L [facility] POTASSIUM 4.2 3.3 - 5.1 mmol/L [facility] CHLORIDE 103 96 - 108 mmol/L [facility] CO2 26 21 - 35 mmol/L [facility] BUN 19 6 - 19 mg/dL [facility] CREATININE 0.70 0.5 - 1.5 mg/dL [facility] GLUCOSE 89 70 - 99 mg/dL [facility] ALBUMIN 4.3 3.9 - 4.8 g/dL [facility] TOTAL PROTEIN 7.4 6.5 - 8.0 g/dL [facility] CALCIUM 9.3 8.4 - 10.3 mg/dL [facility] ALKALINE PHOSPHATASE 64 39 - 117 U/L [facility] TOTAL BILIRUBIN 0.5 0.0 - 1.2 mg/dL [facility] AST 28 0 - 37 U/L [facility] ALT 18 0 - 40 U/L [facility] GLOBULIN 3.1 1 - 4.8 g/dL [facility] EGFR 93 >59 mL/min/1.7 3m2 [facility] Comment:Estimated glomerular filtration rate calculated using the CKD-EPI refit equation. ANION GAP 13 10 - 20 mmol/L [facility] Blood 08/18/2025 10:0 0 AM EDT 08/18/2025 10:04 AM EDT Lucy Porter MD LAB BLOOD ORDER ANG Final Result [facility] [address] [place] [address] * (ABNORMAL) T spot TB test (08/18/2025 10:00 AM EDT) T-SPOT.TB Positive( A) Negative [facility] Comment: (NOTE) Diagnosing or excluding tuberculosis (TB) disease and assessing the probability of latent TB infection (LTBI) requires a combination of epidemiological, historical, medical and diagnostic findings that should be taken into consideration when interpreting T-SPOT.TB test results. A positive test result does not rule in active TB disease caused by Mycobacterium tuberculosis (M. tuberculosis); active TB disease should be confirmed by other tests such as sputum smear and culture, PCR, and chest radiography. Uncommonly, a positive T-SPOT.TB result may be due to infection with other Mycobacterium species including M. kansasii, M. szulgai, M. gordonae, or M. marinum. Alternative tests would be required if these infections are suspected. The T-SPOT.TB test is qualitative and results are reported as positive, borderline, or negative, given that the test controls perform as expected. In line with the Centers for Disease Control and Prevention's 2010 recommendation to report quantitative measurements alongside the qualitative result, the laboratory provides spot counts for informational purposes only. The T-SPOT.TB test should not be interpreted as a quantitative test. Panel A Spot Count Corrected For Neg Control 1 [facility] Panel B Spot Count Corrected For Neg Control 11 [facility] Negative Control Passed [facility] Positive Control Passed [facility] Comment: (NOTE) For additional information, please refer to http://education.[employer]/faq/MEW779 (This link is being provided for informational/ educational purposes only.) Blood 08/18/2025 10:0 0 AM EDT 08/18/2025 10:04 AM EDT Lucy Porter MD LAB BLOOD ORDER ANG Final Result Performing Organization Address City/[facility]/ZIP Co de Phone Number [facility] [address] [place], [place] * Hepatitis C antibody, qualitative (08/18/2025 10:00 AM EDT) HCV NON-REACTIV E NON-REACTI VE [facility] Blood 08/18/2025 10:0 0 AM EDT 08/18/2025 10:04 AM EDT Lucy Porter MD LAB BLOOD ORDER ANG Final Result Performing Organization Address [facility]/ZIP Co de Phone Number [address] [address] * (ABNORMAL) 25-OH vitamin D (08/18/2025 10:00 AM EDT) 25 OH VIT D (TOTAL) 91(H) 30 - 60 ng/mL [facility] Blood 08/18/2025 10:0 0 AM EDT 08/18/2025 10:04 AM EDT us Lucy Porter MD LAB BLOOD ORDER ANG Final Result Performing Organization Address City/[facility]/ZIP Co de Phone Number [address] [address] * Hepatitis B surface antibody (08/18/2025 10:00 AM EDT) HBV SURFACE ANTIBODY NON-REACTI VE [facility] Comment: Unvaccinated: Non Reactive Vaccinated: Reactive Blood 08/18/2025 10:0 0 AM EDT 08/18/2025 10:04 AM EDT Lucy Porter MD LAB BLOOD ORDER ANG Final Result [address] [address] * Hepatitis B surface antigen (08/18/2025 10:00 AM EDT) HBV SURFACE ANTIGEN NON-REACTI VE NON-REACTI VE [facility] Blood 08/18/2025 10:0 0 AM EDT 08/18/2025 10:04 AM EDT Lucy Porter MD LAB BLOOD ORDER ANG Final Result Performing Organization Address City/[facility]/ZIP Co de Phone Number [address] [address] * Sedimentation rate (ESR) (08/18/2025 10:00 AM EDT) ESR 17 0 - 30 mm/h [facility] Blood 08/18/2025 10:0 0 AM EDT 08/18/2025 10:04 AM EDT Lucy Porter MD LAB BLOOD ORDER ANG Final Result Performing Organization Address City/[facility]/ZIP Co de Phone Number [address] [address] * (ABNORMAL) CBC and differential (08/18/2025 10:00 AM EDT) WBC 4.30 4.00 - 11.00 K/uL [facility] RBC 3.94(L) 4.00 - 5.20 M/uL [facility] HGB 12.8 12.0 - 16.0 g/dL [facility] HCT 39.5 36.0 - 46.0 % [facility] PLT 231 150 - 450 K/uL [facility] MCV 100.3(H) 80.0 - 100.0 fL [facility] MCH 32.5(H) 27.0 - 31.0 pg [facility] MCHC 32.4 32.0 - 36.0 g/dL [facility] RDW 13.2 11.5 - 14.5 % [facility] MPV 9.0 8.4 - 12.0 fL [facility] NRBC 0.00 0.00 /100 WBCs [facility] ABSOLUTE NRBC 0.00 0.00 K/uL [facility] DIFF METHOD Auto [facility] NEUTS 57.2 48.0 - 76.0 % [facility] LYMPHS 27.2 18.0 - 41.0 % [facility] MONOS 9.8 4.0 - 11.0 % [facility] EOS 4.9 0.0 - 5.0 % [facility] BASOS 0.7 0.0 - 1.5 % [facility] Granulocytes, immature (%) 0.2 0.0 - 0.9 % [facility] ABSOLUTE NEUTS 2.46 1.92 - 7.60 K/uL [facility] ABSOLUTE LYMPHS 1.17 0.72 - 4.10 K/uL [facility] ABSOLUTE MONOS 0.42 0.16 - 1.10 K/uL [facility] ABSOLUTE EOS 0.21 0.00 - 0.50 K/uL [facility] ABSOLUTE BASOS 0.03 0.00 - 0.15 K/uL [facility] Granulocytes, immature 0.01 0.00 - 0.09 K/uL [facility] Blood 08/18/2025 10:0 0 AM EDT 08/18/2025 10:04 AM EDT us Lucy Porter MD LAB BLOOD ORDER ANG Final Result [address] [address] * C-Reactive Protein (08/18/2025 10:00 AM EDT) C REACTIVE PROTEIN <3.0 0.0 - 4.0 mg/L [facility] Blood 08/18/2025 10:0 0 AM EDT 08/18/2025 10:04 AM EDT Lucy Porter MD LAB BLOOD ORDER ANG Final Result [address] [address] * BI MAMMOGRAM SCREENING WITH TOMOSYNTHESIS WITH CAD (BILATERAL) (06/06/2025 9:23 AM EDT) Anatomical Region Laterality Modality Breast Left, Breast Right, Breast Bilateral Bila teral Mammography 06/06/2025 3:34 PM EDT Impressions 06/06/2025 3:36 PM EDT No mammographic evidence of malignancy in either breast. Annual screening mammography is recommended. BI-RADS 1 NEGATIVE The patient will be notified of the results and recommendations. Narrative 06/06/2025 3:36 PM EDT BI MAMMOGRAM SCREENING WITH TOMOSYNTHESIS WITH CAD (BILATERAL) Additional patient information: Screening. COMPARISON: Comparison is made with relevant prior imaging. Breast composition: The breasts are heterogeneously dense, which may obscure small masses. FINDINGS: No abnormal masses, suspicious calcifications, or other significant findings are identified mammographically in either breast. There has been no significant interval change. Procedure Note Tiffanie Daigle MD - 06/06/2025 BI MAMMOGRAM SCREENING WITH TOMOSYNTHESIS WITH CAD (BILATERAL) Additional patient information: Screening. COMPARISON: Comparison is made with relevant prior imaging. Breast composition: The breasts are heterogeneously dense, which mayobscure small masses. FINDINGS: No abnormal masses, suspicious calcifications, or other significantfindings are identified mammographically in either breast. There has been no significant interval change. IMPRESSION: No mammographic evidence of malignancy in either breast. Annual screening mammography is recommended. BI-RADS 1 NEGATIVE The patient will be notified of the results and recommendations. Yancy Trent MD IMG MG EXAMS Lizzy l Result * ENDOSCOPY, COLON (04/06/2024 8:12 AM EDT) Narrative Transcriptions Lester Castro MD - 04/06/2024 8:12 AM EDT [facility] Patient Name: Cisco Mills Attending MD:: LESTER CASTRO MD, , Procedure Date: 04/06/2024 8:12 AM Date of : 1955 Age: 68 Admit Type: Outpatient Gender: Female Room: [facility] Referring MD: YANCY TRENT MD Exam Type: Colonoscopy Indications: Screening for colorectal malignant neoplasm Medications: Monitored Anesthesia Care Procedure: Informed consent was obtained from the patientafter discussion of the indications, limitations, alternatives, benefits, and risks of the procedure. Risks specifically discussed include but are not limited to medication reactions, missed lesions, bleeding, perforation, or the need for emergent surgery. Throughout the procedure, the patient's blood pressure, pulse, end-tidal CO2, and oxygensaturations were monitored continuously. The Olympus pediatric variable colonoscopePCF-[id number] #3 was introduced through the anus and advanced tothe cecum, identified by appendiceal orifice andileocecal valve. The colonoscopy was performed without difficulty. The patient tolerated the procedurewell. The quality of the bowel preparation was excellent. The quality of the bowel preparation was evaluated using the BBPS (Leeds Bowel Preparation Scale)with scores of: Right Colon = 3, Transverse Colon = 3and Left Colon = 3 (entire mucosa seen well with no residual staining, small fragments of stool oropaque liquid). The total BBPS score equals 9. Anatomical landmarks were photographed. Complications: No immediate complications. Estimated blood loss:None. Findings: The perianal and digital rectal examinations were normal. Internal hemorrhoids were found duringretroflexion. The hemorrhoids were moderate. The exam was otherwise normal throughout theexamined colon. Impression: - Internal hemorrhoids. - No specimens collected. Recommendation: - Discharge patient to home. - Repeat colonoscopy in 10 years for screening purposes. LESTER CASTRO MD, 04/06/2024 8:33:44 AM This report has been signed electronically. Number of Addenda: 0 Note Initiated On: 04/06/2024 8:12 AM Procedure Code(s): --- Professional --- 11866, Colonoscopy, flexible; diagnostic, including collection of specimen(s) by brushing or washing, when performed (separateprocedure) --- Technical --- 76854, Colonoscopy, flexible; diagnostic, including collection of specimen(s) by brushing or washing, when performed (separateprocedure) Diagnosis Code(s): --- Professional --- Z12.11, Encounter for screening for malignantneoplasm of colon K64.8, Other hemorrhoids --- Technical --- Z12.11, Encounter for screening for malignantneoplasm of colon K64.8, Other hemorrhoids CPT copyright 2021 [employer]. All rights reserved. The codes documented in this report are preliminary and upon collateral clerk reviewmay be revised to meet current compliance requirements. Procedure Date: 04/06/2024 8:12:[address] [place], [place] [address] us Yancy Trent MD GI PROCEDURE ORDERAB LES Final Result * (ABNORMAL) Lipid panel (11/20/2022 9:53 AM EST) HDL 84 mg/dL [facility] Comment: Interpretation <40 mg/dL: Low HDL cholesterol (major risk factor for CHD) Greater than or equal to 60 mg/dL: High HDL cholesterol ( negative risk factor for CHD) HDL - cholesterol is affected by a number of factors, e.g. smoking, excerise, hormones, sex and age. CHOLESTEROL 249(H) 0 - 240 mg/dL [facility] TRIGLYCERIDES 40 30 - 160 mg/dL [facility] LDL 157(H) 50 - 129 mg/dL [facility] Comment: LDL levels in terms of risk for coronary heart disease: <100 mg/dL: Optimal 100-129 mg/dL: Near or above optimal 130-159 mg/dL: Borderline high 160-189 mg/dL: High >190 mg/dL: Very High CARDIAC RISK RATIO 3.0(L) 3.3 - 4.4 C [facility] Blood 11/20/2022 9:53 AM EST 11/20/2022 9:55 AM EST us Zee Martinez MD LAB BLOOD ORDERABLES Final Resul t [facility] [address] [place] [address] * OUTSIDE BONE DENSITY SCREENING (03/25/2017) BONE DENSITY SCREENING - EXTERNAL Osteoporosis us Historical Provider HEALTH MAINTENANCE Final Result from Last 3 Months or Most Recently Relevant to Health Maintenance Insurance MEDICARE PART A & B [facility] MEDICARE PPO BLUE REPLACEMENT [facility] MEDICARE PART A & B [facility] MEDICARE PPO BLUE REPLACEMENT [facility] MEDICARE PART A & B [place] BLUE REPLACEMENT [facility] MEDICARE PART A & B [place] BLUE REPLACEMENT [facility] MEDICARE PART A & B [facility] MEDICARE PPO BLUE REPLACEMENT [facility] MEDICARE PART A & B [facility]ICARE [facility]PO [facility] Care Teams Robot Technician Relationship Specialty Start Date End Date [facility] [address] [address] PCP - General Internal Medicine 01/30/24 Gricel Anglin MD [address] [place] [address], [address] [place] [address] Family Medicine 03/11/18 Sultana Sheriff MD [address] [place] [address] [address] [place] [address] Ophthalmology 03/11/18 Thong Hawkins MD 10 [facility] 2 [place] [address] Gastroenterology 03/11/18 Coleman Amador MD [address] [place] [address] Rheumatology 03/11/18 Willa Davila MD [address] [place] [address] [email or web address] Surgeon Urology 03/11/18 Additional Source Comments The information contained in this document represents components of the legal health record. It is not the complete legal health record.[facility]
--- OUTSIDE RECORDS SUMMARY | 2025-08-25 15:23 | XMS_ITS | Encounter Summary ---
Author Organization [facility] Address [address] [facility] [address] [place] [address] Phone Care Team Providers Care Coat Fitter Name Role Phone Gricel Anglin MD Unavailable [phone] Sultana Sheriff MD Unavailable [phone] Thong Hawkins MD Unavailable [phone] Coleman Amador MD Unavailable Willa Davila MD Unavailable [phone] Yancy Osuna MD Primary Care Provid er Encounter Details Date Type Department Care Team (Late st Contact Info) Description 04/06/2024 Procedure Pass [facility] Endoscopy Admitting Dept Virtual Department [address] [place] [address] Social History Tobacco Use Types Packs/Day Years Used Date Smoking Tobacco: Never Smokeless Tobacco: Never Alcohol Use Standard Drinks/Week Comments No 0 (1 standard drink = 0.6 oz pur e alcohol) Child or Family Care Answer Date Record ed Do you have problems with on e of the following making it difficult for you to work, study, or receive health care? No 07/15/2022 Education Answer Date Recorded Are you interested in help w ith more adult education (for example, completing high school, GED, job training, learning the [place] language, technical skills, or developing parenting skills)? I choose not to answer 07/15/2022 Food Answer Date Recorded Within the past [...] Diagnoses Not on filedocumented in this encounter Care Teams Coat Fitter Relationship Specialty Start Date End Date Yancy Osuna MD [address] [address] PCP - General Internal Medicine 01/30/24 Gricel Anglin MD [address] [place] [address], [address] [place] [address] Family Medicine 03/11/18 Sultana Sheriff MD 40 [facility]. 106 [place] [address] Ophthalmology 03/11/18 Thong Hawkins MD 10 [facility] [address] [place] [address] [email or web address] Gastroenterology 03/11/18 Coleman Amador MD [address] [place] [address] Rheumatology 03/11/18 Willa Davila MD [address] [place] [address] [email or web address] Surgeon Urology 03/11/18 documented as of this encounter Additional Source Comments The information contained in this document represents components of the legal health record. It is not the complete legal health record.[facility]
--- OUTSIDE RECORDS SUMMARY | 2025-08-25 15:23 | XMS_ITS | Encounter Summary ---
Author Organization [facility] Address [address] [place] [address] [place] [address] Phone Care Team Providers Care Causticiser Name Role Phone Gricel Anglin MD Unavailable [phone] Sultana Sheriff MD Unavailable [phone] Thong Hawkins MD Unavailable [phone] Coleman Amador MD Unavailable Willa Davila MD Unavailable [phone] Yancy Osuna MD Primary Care Provid er Encounter Details Date Type Department Care Team (Late st Contact Info) Description 12/13/2024 Procedure Pass [facility], [address] [address] Social History Tobacco Use Types Packs/Day Years [...] on filedocumented in this encounter Care Teams Causticiser Relationship Specialty Start Date End Date Yancy Osuna MD [address] [address] PCP - General Internal Medicine 01/30/24 Gricel Anglin MD [address] [place] [address], [address] [place] [address] Family Medicine 03/11/18 Sultana Sheriff MD [address] [place] [address] [address] [place] [address] Ophthalmology 03/11/18 Thong Hawkins MD 10 [facility] 2 [place] [address] Gastroenterology 03/11/18 Coleman Amador MD [address] [place] [address] Rheumatology 03/11/18 Willa Davila MD [address] [place] [address] [email or web address] Surgeon Urology 03/11/18 documented as of this encounter Additional Source Comments The information contained in this document represents components of the legal health record. It is not the complete legal health record.[facility]
--- OUTSIDE RECORDS SUMMARY | 2025-08-25 15:24 | XMS_ITS | Encounter Summary ---
Author Organization [facility] Address [address] [place] [address] [place] [address] Phone Care Team Providers Care Ore Dressing Engineer Name Role Phone Gricel Anglin MD Unavailable [phone] Sultana Sheriff MD Unavailable [phone] Thong Hawkins MD Unavailable [phone] Coleman Amador MD Unavailable Willa Davila MD Unavailable [phone] Zee Martinez MD Primary Care Provider [phone] Yancy Osuna MD Primary Care Provid er Encounter Details Date Type Department Care Team (Late st Contact Info) Description 01/14/2023 Procedure Pass [facility], [address] [address] Social History Tobacco Use Types Packs/Day Years [...] high school, GED, job training, learning the Chinese language, technical skills, or developing parenting skills)? [...] basis, and looking for work? No 07/15/2022 Comments No Sex and Gender Information Value Date Recorded Sex Assigned at Not on file Legal Sex Female 9:55 PM EDT Gender Identity Not on file Sexual Orientation Not on file documented as of this encounter Plan of Treatment Not on file documented as of this encounter Visit Diagnoses Not on filedocumented in this encounter Care Teams Ore Dressing Engineer Relationship Specialty Start Date End Date Zee Martinez MD [address] [place] [address] [address] [place] [address] [email or web address] PCP - General Family Medicine 07/15/22 01/29/24 Yancy Osuna MD [address] [address] PCP - General Internal Medicine 01/30/24 Gricel Anglin MD [address] [place] [address], [address] [place] [address] Family Medicine 03/11/18 Sultana Sheriff MD [address] [place] [address]. [address] [place] [address] Ophthalmology 03/11/18 Thong Hawkins MD 10 [facility] [address] [place] [address] Gastroenterology 03/11/18 Coleman Amador MD [address] [place] [address] Rheumatology 03/11/18 Willa Davila MD [address] [place] [address] [email or web address] Surgeon Urology 03/11/18 documented as of this encounter Additional Source Comments The information contained in this document represents components of the legal health record. It is not the complete legal health record.[facility]
--- OUTSIDE RECORDS SUMMARY | 2025-08-25 15:24 | XMS_ITS | Encounter Summary ---
Author Organization [facility] Address [address] [place] [address] Phone Care Team Providers Care Fish Cutting Machine Operator Name Role Phone Gricel Anglin MD Unavailable [phone] Sultana Sheriff MD Unavailable [phone] Thong Hawkins MD Unavailable [phone] Coleman Amador MD Unavailable Willa Davila MD Unavailable [phone] Mari Hernandez MD Primary Care Provid er Zee Martinez MD Primary Care Provider [phone] Yancy Osuna MD Primary Care Provid er Reason for Referral * MRI/CAT Scan - Closed Specialty Diagnoses / Procedures Referred By Contac t Referred To Contact Radiology Diagnoses Sensorineural hearing loss, unilateral, right ear, with restricted hearing on the contralateral side Mixed conductive and sensorineural hearing loss, unilateral, 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 Partial loss of ear ossicles, left ear Procedures MRI Brain Brad Casper MD Phone: tel: fax: mailto: Referral ID Status Reason Start Date Expiration Date Visits Re quested Visits Authorized [id number] Closed 11/02/2018 01/01/2019 1 1 Encounter Details Date Type Department Care Team (Late st Contact Info) Description 11/02/2018 Ancillary Orders Virtual Department [address] [place] [address] Brad Casper MD [address], [address] [place] [address] [email or web address] Sensorineural hearing loss, unilateral, right ear, with restricted hearing on the contralateral side; Mixed conductive and sensorineural hearing loss, unilateral, 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; Partial loss of ear ossicles, left ear Social History Tobacco Use Types Packs/Day Years Used Date Smoking Tobacco: Never Smokeless Tobacco: Never Alcohol Use Standard Drinks/Week Comments No 0 (1 standard drink = 0.6 oz pur e alcohol) Comments No Sex and Gender Information Value Date Recorded Sex Assigned at Not on file Legal Sex Female 9:55 PM EDT Gender Identity Not on file Sexual Orientation Not on file documented as of this encounter Plan of Treatment Not on file documented as of this encounter Results * MRI BRAIN WITH AND WITHOUT CONTRAST (11/17/2018 10:49 AM EST) Anatomical Region Laterality Modality Head Magnetic Resonan ce 11/17/2018 3:45 PM EST Impressions 11/18/2018 10:34 AM EST 1. Normal internal auditory canals. No evidence for acoustic neuroma. 2. Mild degree of supratentorial white matter changes, without diffusion restriction or abnormal enhancement. This is most commonly seen with minimal chronic small vessel ischemia. 3. No abnormal intracranial enhancement. POS - [id number] Edited by: So Vargas on 11/18/2018 10:31 AM Narrative 11/18/2018 10:34 AM EST MRI BRAIN WITH AND WITHOUT CONTRAST HISTORY: Sensorineural hearing loss, unilateral, right ear, with restricted hearing on the contralateral side, Mixed conductive and sensorineural hearing loss, unilateral, 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 COMPARISON: Temporal bone CT 02/18/2011. TECHNIQUE: Multiplanar MR imaging of the brain and internal auditory canals was obtained without IV contrast. 3-D thin section T2 axial Fiesta sequence was performed through the IACs. Postcontrast axial T1 of the whole brain and thin section pre and postcontrast axial T1 and postcontrast coronal T1 through the region of the IACs. 10 mL Dotarem contrast IV. FINDINGS: There is no mass or signal abnormality in the brainstem, cerebellopontine angle cisterns or internal auditory canals. No signal abnormality in the mastoids or middle ears. There is normal cerebrospinal fluid signal within the prepontine cistern, cerebellopontine angle cisterns, internal auditory canals, and labyrinthine structures. The 7th and 8th nerve complexes are normal in course and caliber. The ventricles and sulci are normal in size and configuration. There is no intracranial hemorrhage, midline shift or mass effect. Minimal scattered punctate foci of increased T2 FLAIR signal in the periventricular and subcortical white matter bilaterally. None of these areas demonstrate diffusion restriction. No evidence for acute ischemia. The cerebellar tonsils are normal in position. Following contrast administration, there is no abnormal intraparenchymal brain enhancement. No abnormal enhancement in the region of the internal auditory canals. Normal dark signal flow voids present within the major intracranial arteries at the skull base. The globes and orbits are normal. There are small fluid levels within the maxillary sinuses, right greater than left. Normal bone marrow signal. Procedure Note Laura Moeller MD - 11/18/2018 MRI BRAIN WITH AND WITHOUT CONTRAST HISTORY: Sensorineural hearing loss, unilateral, right ear, withrestricted hearing on the contralateral side, Mixed conductive andsensorineural hearing loss, unilateral, left ear with restricted hearingon the contralateral side COMPARISON: Temporal bone CT 02/18/2011. TECHNIQUE: Multiplanar MR imaging of the brain and internal auditorycanals was obtained without IV contrast. 3-D thin section T2 axial Fiestasequence was performed through the IACs. Postcontrast axial T1 of thewhole brain and thin section pre and postcontrast axial T1 andpostcontrast coronal T1 through the region of the IACs. 10 mL Dotaremcontrast IV. FINDINGS: There is no mass or signal abnormality in the brainstem, cerebellopontineangle cisterns or internal auditory canals. No signal abnormality in themastoids or middle ears. There is normal cerebrospinal fluid signal withinthe prepontine cistern, cerebellopontine angle cisterns, internal auditorycanals, and labyrinthine structures. The 7th and 8th nerve complexes arenormal in course and caliber. The ventricles and sulci are normal in size and configuration. There is nointracranial hemorrhage, midline shift or mass effect. Minimal scatteredpunctate foci of increased T2 FLAIR signal in the periventricular andsubcortical white matter bilaterally. None of these areas demonstratediffusion restriction. No evidence for acute ischemia. The cerebellar tonsils are normal in position. Following contrast administration, there is no abnormal intraparenchymalbrain enhancement. No abnormal enhancement in the region of the internalauditory canals. Normal dark signal flow voids present within the major intracranialarteries at the skull base. The globes and orbits are normal. There aresmall fluid levels within the maxillary sinuses, right greater thanleft. Normal bone marrow signal. IMPRESSION: 1. Normal internal auditory canals. No evidence for acoustic neuroma. 2. Mild degree of supratentorial white matter changes, without diffusionrestriction or abnormal enhancement. This is most commonly seen withminimal chronic small vessel ischemia. 3. No abnormal intracranial enhancement. 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 201 [place] [address] [email or web address] PCP - General Family Medicine 07/15/22 01/29/24 Yancy Osuna MD [address] [address] [place] [address] PCP - General Internal Medicine 01/30/24 Gricel Anglin MD 22 [facility], [address] [place] [address] [email or web address] Medicine 03/11/18 Sultana Sheriff MD 40 [facility] 106 [place] [address] Ophthalmology 03/11/18 Thong Hawkins MD 10 [facility] 2 [place] [address] Gastroenterology 03/11/18 Coleman Amador MD [address] [place] [address] Rheumatology 03/11/18 Willa Davila MD [address] [place] [address] [email or web address] Surgeon Urology 03/11/18 documented as of this encounter Additional Source Comments The information contained in this document represents components of the legal health record. It is not the complete legal health record.[facility]
--- OUTSIDE RECORDS SUMMARY | 2025-08-25 15:24 | XMS_ITS | Encounter Summary ---
Author Organization [facility] Address [address] [place] [address] Phone Care Team Providers Care Button And Buckle Maker Name Role Phone Gricel Anglin MD Unavailable [phone] Sultana Sheriff MD Unavailable [phone] Thong Hawkins MD Unavailable [phone] Coleman Amador MD Unavailable Willa Davila MD Unavailable [phone] Mari Hernandez MD Primary Care Provid er Zee Martinez MD Primary Care Provider [phone] Yancy Osuna MD Primary Care Provid er Encounter Details Date Type Department Care Team (Late st Contact Info) Description 09/22/2020 Procedure Pass [facility], [address] [address] Social History Tobacco Use Types Packs/Day Years [...] on filedocumented in this encounter Care Teams Button And Buckle Maker Relationship Specialty Start Date End Date Mari Hernandez MD [address] [place] [address] PCP - General Internal Medicine 07/14/18 07/14/22 Zee Martinez MD 15 [facility] 201 [place] [address] [email or web address] PCP - General Family Medicine 07/15/22 01/29/24 Yancy Osuna MD [address] [address] PCP - General Internal Medicine 01/30/24 Gricel Anglin MD 22 [facility], 201 [place] [address] Family Medicine 03/11/18 Sultana Sheriff MD [address] [place] [address] Ophthalmology 03/11/18 Thong Hawkins MD [address] [place] [address] 2 [place] [address] Gastroenterology 03/11/18 Coleman Amador MD [address] [place] [address] Rheumatology 03/11/18 Willa Davila MD [address] [place] [address] Surgeon Urology 03/11/18 documented as of this encounter Additional Source Comments The information contained in this document represents components of the legal health record. It is not the complete legal health record.[facility]
--- OUTSIDE RECORDS SUMMARY | 2025-08-25 15:24 | XMS_ITS | Encounter Summary ---
Author Organization [facility] Address [address] [facility] [address] [place] [address] Phone Care Team Providers Care Contract Writer Name Role Phone Gricel Anglin MD Unavailable [phone] Sultana Sheriff MD Unavailable [phone] Thong Hawkins MD Unavailable [phone] Coleman Amador MD Unavailable Willa Davila MD Unavailable [phone] Yancy Osuna MD Primary Care Provid er Encounter Details Date Type Department Care Team (Late st Contact Info) Description 01/30/2024 Transcribe Orders Virtual Department 30 [place] [address] Zee Martinez MD 15 [facility] [address] [place] [address] [email or web address] Social History Tobacco Use Types Packs/Day Years [...] high school, GED, job training, learning the Bulgarian language, technical skills, or developing parenting skills)? [...] with a working camera? Not on file Comments No Sex and Gender Information Value Date Recorded Sex Assigned at Not on file Legal Sex Female 9:55 PM EDT Gender Identity Not on file Sexual Orientation Not on file documented as of this encounter Plan of Treatment Not on file documented as of this encounter Visit Diagnoses Not on filedocumented in this encounter Care Teams Contract Writer Relationship Specialty Start Date End Date Yancy Osuna MD [address] [address] PCP - General Internal Medicine 01/30/24 Gricel Anglin MD [address] [place] [address], [address] [place] [address] Family Medicine 03/11/18 Sultana Sheriff MD [address] [place] [address]. [address] [place] [address] Ophthalmology 03/11/18 Thong Hawkins MD [address] [facility] [address] [place] [address] Gastroenterology 03/11/18 Coleman Amador MD [address] [place] [address] Rheumatology 03/11/18 Willa Davila MD [address] [place] [address] [email or web address] Surgeon Urology 03/11/18 documented as of this encounter Additional Source Comments The information contained in this document represents components of the legal health record. It is not the complete legal health record.[facility]
--- OUTSIDE RECORDS SUMMARY | 2025-08-25 15:24 | XMS_ITS | Encounter Summary ---
Author Organization [facility] Address [address] [place] [address] Phone Care Team Providers Care Pool Manager Name Role Phone Gricel Anglin MD Unavailable [phone] Sultana Sheriff MD Unavailable [phone] Thong Hawkins MD Unavailable [phone] Coleman Amador MD Unavailable Willa Davila MD Unavailable [phone] Mari Hernandez MD Primary Care Provid er Zee Martinez MD Primary Care Provider [phone] Yancy Osuna MD Primary Care Provid er Encounter Details Date Type Department Care Team (Late st Contact Info) Description 09/22/2020 Ancillary Orders Virtual Department 30 [place], [place] [id number] Mari Hernandez MD [address] [place], [place] [phone] Breast cancer screening by mammogram Social History Tobacco Use Types Packs/Day Years [...] MAMMOGRAM SCREENING WITH TOMOSYNTHESIS WITH CAD (BILATERAL) (02/16/2021 10:37 AM EDT) Anatomical Region Laterality Modality Breast Left, Breast Right, Breast Bilateral Bila teral Mammography 02/16/2021 11:5 1 AM EDT Impressions 02/16/2021 11:53 AM EDT No mammographic evidence of malignancy. Recommend routine annual surveillance. BI-RADS CATEGORY: 2 - Benign finding. DENSITY: The breast tissue is heterogeneously dense, which could obscure a lesion on mammography. Narrative 02/16/2021 11:53 AM EDT 65-year-old female with no current breast symptoms. Comparison made to previous on 12/03/2019 and as far back as 10/21/2014. Interpretation made in conjunction with computer-aided detection and tomosynthesis. The breasts are heterogeneously dense, which may obscure small masses. Chronic benign scattered left breast calcifications. There are no suspicious masses, areas of architectural distortion, or suspicious clusters of microcalcifications. Procedure Note Cristi Potter MD - 02/16/2021 65-year-old female with no current breast symptoms. Comparison made toprevious on 12/03/2019 and as far back as 10/21/2014. Interpretation madein conjunction with computer-aided detection and tomosynthesis. The breasts are heterogeneously dense, which may obscure small masses.Chronic benign scattered left breast calcifications. There are no suspicious masses, areas of architectural distortion, orsuspicious clusters of microcalcifications. IMPRESSION: No mammographic evidence of malignancy. Recommend routine annualsurveillance. BI-RADS CATEGORY: 2 - Benign finding. DENSITY: The breast tissue is heterogeneously dense, which could obscurea lesion on mammography. Mari Etienne MD IMG MG EXAMS Lizzy l Result documented in this encounter Visit Diagnoses Diagnosis Breast cancer screening by mammogram Breast cancer screening by mammogram documented in this encounter Care Teams Pool Manager Relationship Specialty Start Date End Date Mari Hernandez MD [address] [place] [address] PCP - General Internal Medicine 07/14/18 07/14/22 Zee Martinez MD [address] [place] [address] 201 [place] [address] [email or web address] PCP - General Family Medicine 07/15/22 01/29/24 Yancy Osuna MD [address] [address] PCP - General Internal Medicine 01/30/24 Gricel Anglin MD [address] [place], [place] [address] [place] [address] [email or web address] Family Medicine 03/11/18 Sultana Sheriff MD [address] [place] [address] Ophthalmology 03/11/18 Thong Hawkins MD [address] [place] [address] 2 [place] [address] [email or web address] Gastroenterology 03/11/18 Coleman Amador MD [address] [place] [address] Rheumatology 03/11/18 Willa Davila MD [address] [place] [address] Surgeon Urology 03/11/18 documented as of this encounter Additional Source Comments The information contained in this document represents components of the legal health record. It is not the complete legal health record.[facility]
--- OUTSIDE RECORDS SUMMARY | 2025-08-25 15:24 | XMS_ITS | Encounter Summary ---
Author Organization [facility] Address [address] [place] [address] Phone Care Team Providers Care Linux Server Administrator Name Role Phone Gricel Anglin MD Unavailable [phone] Sultana Sheriff MD Unavailable [phone] Thong Hawkins MD Unavailable [phone] Coleman Amador MD Unavailable Willa Davila MD Unavailable [phone] Mari Hernandez MD Primary Care Provid er Zee Martinez MD Primary Care Provider [phone] Yancy Osuna MD Primary Care Provid er Encounter Details Date Type Department Care Team (Late st Contact Info) Description 11/02/2018 Procedure Pass [facility], [address] [address] Social History Tobacco Use Types Packs/Day Years [...] on filedocumented in this encounter Care Teams Linux Server Administrator Relationship Specialty Start Date End Date aMri Hernandez MD 575 [place] [address] PCP - General Internal Medicine 07/14/18 07/14/22 Zee Martinez MD 15 [facility] 201 [place] [address] [email or web address] PCP - General Family Medicine 07/15/22 01/29/24 Yancy Osuna MD [address] [address] PCP - General Internal Medicine 01/30/24 Gricel Anglin MD 22 [facility], 201 [place] [address] Family Medicine 03/11/18 Sultana Sheriff MD [address] [place] [address] Ophthalmology 03/11/18 Thong Hawkins MD [address] [place] [address] 2 [place] [address] Gastroenterology 03/11/18 Coleman Amador MD [address] [place] [address] Rheumatology 03/11/18 Willa Davila MD [address] [place] [address] Surgeon Urology 03/11/18 documented as of this encounter Additional Source Comments The information contained in this document represents components of the legal health record. It is not the complete legal health record.[facility]
--- OUTSIDE RECORDS SUMMARY | 2025-08-25 15:24 | XMS_ITS | Encounter Summary ---
Author Organization [facility] Address [address] [place] [address] [place] [address] Phone Care Team Providers Care Certified Hyperbaric Technician Name Role Phone Gricel Anglin MD Unavailable [phone] Sultana Sheriff MD Unavailable [phone] Thong Hawkins MD Unavailable [phone] Coleman Amador MD Unavailable Willa Davila MD Unavailable [phone] Yancy Osuna MD Primary Care Provid er Encounter Details Date Type Department Care Team (Late st Contact Info) Description 01/30/2024 Transcribe Orders Virtual Department 30 [place] [address] Yancy Osuna MD [address] [id number] Breast screening (Primary Dx) Social History Tobacco Use Types Packs/Day Years [...] high school, GED, job training, learning the Khmer language, technical skills, or developing parenting skills)? [...] MAMMOGRAM SCREENING WITH TOMOSYNTHESIS WITH CAD (BILATERAL) (03/08/2024 11:23 AM EDT) Anatomical Region Laterality Modality Breast Left, Breast Right, Breast Bilateral Bila teral Mammography 03/11/2024 6:39 PM EDT Impressions 03/11/2024 7:00 PM EDT No mammographic evidence of malignancy in either breast. Annual screening mammography is recommended. BI-RADS 1 NEGATIVE The patient will be notified of the results and recommendations. Narrative 03/11/2024 7:00 PM EDT BI MAMMOGRAM SCREENING WITH TOMOSYNTHESIS WITH CAD (BILATERAL) Additional patient information: Screening. COMPARISON: Comparison is made with relevant prior imaging. Breast composition: The breast tissue is heterogeneously dense which may obscure small masses. FINDINGS: No abnormal masses, suspicious calcifications, or other significant findings are identified mammographically in either breast. Procedure Note Austyn Covarrubias MD - 03/11/2024 BI MAMMOGRAM SCREENING WITH TOMOSYNTHESIS WITH CAD (BILATERAL) Additional patient information: Screening. COMPARISON: Comparison is made with relevant prior imaging. Breast composition: The breast tissue is heterogeneously dense which mayobscure small masses. FINDINGS: No abnormal masses, suspicious calcifications, or other significantfindings are identified mammographically in either breast. IMPRESSION: No mammographic evidence of malignancy in either breast. Annual screening mammography is recommended. BI-RADS 1 NEGATIVE The patient will be notified of the results and recommendations. Yancy Osuna MD [facility] Lizzy l Result documented in this encounter Visit Diagnoses Diagnosis Breast screening- Primary Breast screening, unspecified Breast screening Breast screening, unspecified documented in this encounter Care Teams Certified Hyperbaric Technician Relationship Specialty Start Date End Date Yancy Osuna MD [address] [facility] 102 [place] [address] PCP - General Internal Medicine 01/30/24 Gricel Anglin MD [address] [place] [address], [address] [place] [address] Family Medicine 03/11/18 Sultana Sheriff MD [address] [place] [address] 106 [place] [address] Ophthalmology 03/11/18 Thong Hawkins MD [address] [facility] [address] [place] [address] [email or web address] Gastroenterology 03/11/18 Coleman Amador MD [address] [place] [address] Rheumatology 03/11/18 Willa Davila MD [address] [place] [address] [email or web address] Surgeon Urology 03/11/18 documented as of this encounter Additional Source Comments The information contained in this document represents components of the legal health record. It is not the complete legal health record.[facility]
--- OUTSIDE RECORDS SUMMARY | 2025-08-25 15:24 | XMS_ITS | Encounter Summary ---
Author Organization [facility] Address [address] [place] [address] Phone Care Team Providers Care Evaporator Operator Molasses Name Role Phone Gricel Anglin MD Unavailable [phone] Sultana Sheriff MD Unavailable [phone] Thong Hawkins MD Unavailable [phone] Coleman Amador MD Unavailable Willa Davila MD Unavailable [phone] Mari Hernandez MD Primary Care Provid er Zee Martinez MD Primary Care Provider [phone] Yancy Osuna MD Primary Care Provid er Encounter Details Date Type Department Care Team (Late st Contact Info) Description 09/28/2018 Ancillary Orders Virtual Department 30 [place], [place] [phone] Mari Hernandez MD [address] [place], [place] [phone] Breast screening Social History Tobacco Use Types [...] MAMMOGRAM SCREENING WITH TOMOSYNTHESIS WITH CAD (BILATERAL) (11/30/2018 9:04 AM EST) Anatomical Region Laterality Modality Breast Left, Breast Right, Breast Bilateral Bila teral Mammography 11/30/2018 9:20 AM EST Impressions 11/30/2018 9:22 AM EST No mammographic evidence of malignancy. Recommend routine annual surveillance. BI-RADS CATEGORY: 2 - Benign finding. DENSITY: The breast tissue is heterogeneously dense, an appearance which lowers the sensitivity of mammography. POS - CDHMAMA Narrative 11/30/2018 9:22 AM EST 63-year-old female with no current breast symptoms. Comparison made to previous on 11/28/2017 and as far back as 02/14/2012. Interpretation made in conjunction with computer-aided detection and tomosynthesis. The breasts are heterogeneously dense, which may obscure small masses. Chronic benign left breast macrocalcifications. There are no suspicious masses, areas of architectural distortion, or suspicious clusters of microcalcifications. Procedure Note Shy Peres MD - 11/30/2018 63-year-old female with no current breast symptoms. Comparison made toprevious on 11/28/2017 and as far back as 02/14/2012. Interpretation madein conjunction with computer-aided detection and tomosynthesis. The breasts are heterogeneously dense, which may obscure small masses.Chronic benign left breast macrocalcifications. There are no suspicious masses, areas of architectural distortion, orsuspicious clusters of microcalcifications. IMPRESSION: No mammographic evidence of malignancy. Recommend routine annualsurveillance. BI-RADS CATEGORY: 2 - Benign finding. DENSITY: The breast tissue is heterogeneously dense, an appearance whichlowers the sensitivity of mammography. POS - CDHMAMA Mari Etienne MD IMG MG EXAMS Lizzy l Result documented in this encounter Visit Diagnoses Diagnosis Breast screening Breast screening, unspecified Breast screening Breast screening, unspecified documented in this encounter Care Teams Evaporator Operator Molasses Relationship Specialty Start Date End Date Mari Hernandez MD [address] [place] [address] PCP - General Internal Medicine 07/14/18 07/14/22 Zee Martinez MD [address] [place] [address] 201 [place] [address] [email or web address] PCP - General Family Medicine 07/15/22 01/29/24 Yancy Osuna MD [address] [address] PCP - General Internal Medicine 01/30/24 Gricel Anglin MD [address] [place], [place] [address] [place] [address] [email or web address] Family Medicine 03/11/18 Sultana Sheriff MD [address] [place] [address] 106 [place] [address] Ophthalmology 03/11/18 Thong Hawkins MD [address] [place] [address] 2 [place] [address] [email or web address] Gastroenterology 03/11/18 Coleman Amador MD [address] [place] [address] Rheumatology 03/11/18 Willa Davila MD [address] [place] [address] [email or web address] Surgeon Urology 03/11/18 documented as of this encounter Additional Source Comments The information contained in this document represents components of the legal health record. It is not the complete legal health record.[facility]
--- OUTSIDE RECORDS SUMMARY | 2025-08-25 15:24 | XMS_ITS | Encounter Summary ---
Author Organization [facility] Address [address] [place] [address] Phone Care Team Providers Care Application Development Project Manager Name Role Phone Gricel Anglin MD Unavailable [phone] Sultana Sheriff MD Unavailable [phone] Thong Hawkins MD Unavailable [phone] Coleman Amador MD Unavailable iWlla Davila MD Unavailable [phone] Mari Hernandez MD Primary Care Provid er Zee Martinez MD Primary Care Provider [phone] Yancy Osuna MD Primary Care Provid er Reason for Referral * Physical Therapy (Routine) - Closed Specialty Diagnoses / Procedures Referred By Contarmaan t Referred To Contact Physical Therapy Diagnoses Encounter for rehabilitation Bi-Lateral Knee Procedures Evaluate & Treat System, Provider Not In, [facility] [id number] [place] [address] Phone: tel: Referral ID Status Reason Start Date Expiration Date Visits Re quested Visits Authorized [id number] Closed 07/30/2018 11/30/2018 9 9 Encounter Details Date Type Department Care Team (Latest Contact Info) Description 07/20/2018 Transcribe Orders [facility] 4 [place] [address] Coleman Amador MD [address] [place] [address] Encounter for rehabilitation (Primary Dx) Social History Tobacco Use Types [...] Procedure Name Priority Date/Time Associated Diagnosis Comments AMB REFERRAL TO [facility] PHYSICAL THERAPY Routine 07/30/2018 4:51 PM EDT Encounter for rehabilitation documented in this encounter Results * Ambulatory referral to [facility] Physical Therapy (07/30/2018 4:51 PM EDT) us Provider Not In System PhD AMB [facility] REFERRALS Fin al Result documented in this encounter Visit Diagnoses Diagnosis Encounter for rehabilitation- Primary documented in this encounter Care Teams Application Development Project Manager Relationship Specialty Start Date End Date Mari Hernandez MD [address] [place] [address] PCP - General Internal Medicine 07/14/18 07/14/22 Zee Martinez MD [address] [place] [address] PCP - General Family Medicine 07/15/22 01/29/24 Yancy Osuna MD [address] [address] PCP - General Internal Medicine 01/30/24 Gricel Anglin MD [address] [place], [place] [address] [place] [address] Family Medicine 03/11/18 Sultana Sheriff MD [address] [place] [address]. 106 [place] [address] Ophthalmology 03/11/18 Thong Hawkins MD [address] [place] [address] [address] [place] [address] Gastroenterology 03/11/18 Coleman Amador MD [address] [place] [address] Rheumatology 03/11/18 Willa Davila MD [address] [place] [address] [email or web address] Surgeon Urology 03/11/18 documented as of this encounter Additional Source Comments The information contained in this document represents components of the legal health record. It is not the complete legal health record.[facility]
--- OUTSIDE RECORDS SUMMARY | 2025-08-25 15:24 | XMS_ITS | Encounter Summary ---
Author Organization [facility] Address [address] [place] [address] Phone Care Team Providers Care Tarper Name Role Phone Grciel Anglin MD Unavailable [phone] Sultana Sheriff MD Unavailable [phone] Thong Hawkins MD Unavailable [phone] Coleman Amador MD Unavailable Willa Davila MD Unavailable [phone] Mari Hernandez MD Primary Care Provid er Zee Martinez MD Primary Care Provider [phone] Yancy Osuna MD Primary Care Provid er Encounter Details Date Type Department Care Team (Late st Contact Info) Description 01/14/2022 Procedure Pass [facility], [address] [address] Social History Tobacco Use Types Packs/Day Years [...] on filedocumented in this encounter Care Teams Tarper Relationship Specialty Start Date End Date Mari Hernandez MD [address] [place] [address] PCP - General Internal Medicine 07/14/18 07/14/22 Zee Martinez MD 15 [facility] 201 [place] [address] [email or web address] PCP - General Family Medicine 07/15/22 01/29/24 Yancy Osuna MD [address] [address] PCP - General Internal Medicine 01/30/24 Gricel Anglin MD 22 [facility]201 [place] [address] Family Medicine 03/11/18 Sultana Sheriff MD [address] [place] [address] Ophthalmology 03/11/18 Thong Hawkins MD [address] [place] [address] 2 [place] [address] [email or web address] Gastroenterology 03/11/18 Coleman Amador MD [address] [place] [address] Rheumatology 03/11/18 Willa Davila MD [address] [place] [address] Surgeon Urology 03/11/18 documented as of this encounter Additional Source Comments The information contained in this document represents components of the legal health record. It is not the complete legal health record.[facility]
--- OUTSIDE RECORDS SUMMARY | 2025-08-25 15:24 | XMS_ITS | Encounter Summary ---
Author Organization [facility] Address [address] [place] [id number] Phone Care Team Providers Care Outdoor Landscape Architect Name Role Phone Gricel Anglin MD Unavailable [phone] Sultana Sheriff MD Unavailable [phone] Thong Hawkins MD Unavailable [phone] Coleman Amador MD Unavailable Willa Davila MD Unavailable [phone] Mari Hernandez MD Primary Care Provid er Zee Martinez MD Primary Care Provider [phone] Yancy Osuna MD Primary Care Provid er Encounter Details Date Type Department Care Team (Late st Contact Info) Description 09/28/2019 Ancillary Orders Virtual Department [address], [place] [phone] Mari Hernandez MD [address], [place] [phone] Breast screening Social History Tobacco Use Types [...] MAMMOGRAM SCREENING WITH TOMOSYNTHESIS WITH CAD (BILATERAL) (12/03/2019 10:22 AM EST) Anatomical Region Laterality Modality Breast Left, Breast Right, Breast Bilateral Bila teral Mammography 12/05/2019 6:28 PM EST Impressions 12/06/2019 12:03 PM EST No mammographic evidence of malignancy. BI-RADS CATEGORY: 1 - Negative. DENSITY: The breast tissue is heterogeneously dense, an appearance which lowers the sensitivity of mammography. POS - CDHMAMA Narrative 12/06/2019 12:03 PM EST Standard digital full-field 2-D C view and two-plane tomographic imaging was performed and compared with multiple prior studies, most recently 11/30/2018, with utilization of computer-aided detection. The breast parenchyma is heterogeneously dense, somewhat limiting mammographic sensitivity. The stromal markings are essentially unchanged in overall appearance and distribution. No dominant spiculated mass, suspicious clustered microcalcifications, or focal zone of pathologic skin thickening or retraction are noted to have arisen in the interim. Procedure Note Harleen Alba MD - 12/06/2019 Standard digital full-field 2-D C view and two-plane tomographic imagingwas performed and compared with multiple prior studies, most gucnhusr26/31/2018, with utilization of computer-aided detection. The breast parenchyma is heterogeneously dense, somewhat limitingmammographic sensitivity. The stromal markings are essentially unchangedin overall appearance and distribution. No dominant spiculated mass,suspicious clustered microcalcifications, or focal zone of pathologic skinthickening or retraction are noted to have arisen in the interim. IMPRESSION: No mammographic evidence of malignancy. BI-RADS CATEGORY: 1 - Negative. DENSITY: The breast tissue is heterogeneously dense, an appearance whichlowers the sensitivity of mammography. POS - CDHMAMA Mari Etienne MD IMG MG GOI spicer Result documented in this encounter Visit Diagnoses Diagnosis Breast screening Breast screening, unspecified Breast screening Breast screening, unspecified documented in this encounter Care Teams Outdoor Landscape Architect Relationship Specialty Start Date End Date Mari Hernandez MD [address] [place] [address] PCP - General Internal Medicine 07/14/18 07/14/22 Zee Martinez MD [address] [place] [address] [address] [place] [address] [email or web address] PCP - General Family Medicine 07/15/22 01/29/24 [place] [address] [address] PCP - General Internal Medicine 01/30/24 Gricel Anglin MD [address] [place], [place] [id number] [place] [address] [email or web address] Family Medicine 03/11/18 Sultana Sheriff MD [address] [place] [address] [address] [place] [address] Ophthalmology 03/11/18 Thong Hawkins MD [address] [place] [address] 2 [place] [address] Gastroenterology 03/11/18 Coleman Amador MD [address] [place] [address] Rheumatology 03/11/18 Willa Davila MD [address] [place] [address] Surgeon Urology 03/11/18 documented as of this encounter Additional Source Comments The information contained in this document represents components of the legal health record. It is not the complete legal health record.[facility]
== END 2025-08-25 09:25 | disposition home or self-care (01) ==
LOC: HO.XRAY 09:24
PROVIDERS: PCP Pediatrics; Visit Provider Student in an Organized Health Care Education/Training Program
DX: Z51.81 Encounter for therapeutic drug level monitoring (principal); M81.0 Age-related osteoporosis without current pathological fracture; M06.00 Rheumatoid arthritis without rheumatoid factor, unspecified site; E55.9 Vitamin D deficiency, unspecified; R76.11 Nonspecific reaction to tuberculin skin test without active tuberculosis; Z79.1 Long term (current) use of non-steroidal anti-inflammatories (NSAID); Z79.620 Long term (current) use of immunosuppressive biologic; Z79.899 Other long term (current) drug therapy
CPT/HCPCS: 71046; 96372; 99212; J0897

== ENCOUNTER 2025-08-25 09:24 | Outpatient (AMB) | payer MEDICARE, MEDICAID, SELFPAY ==
--- NOTE | 2025-08-25 09:42 | A.OFFVIS_ITS ---
Vital Signs 08/25/25 09:46 Height 5 ft 2 in Weight 128 lb 11.999 oz BMI 23.5 BP 134/82 Blood Pressure Location Lt brachial Position Sitting Pulse 62 Pulse Source Pulse Oximeter Pulse Oximetry (%) 98 Oxygen Delivery Method Room Air Intake Visit Reasons: osteoporosis/ prolia shot Intake Note: Patient presents for Osteoporosis and Prolia injection. Allergies No Known Allergies (No Known Allergies*) Allergy (Verified 08/25/25 09:46) Medication List - Last Reconciled 08/25/25 by Lucy Porter MD ammonium lactate 12% 1 appl topical DAILY 15 days celecoxib 200 mg PO DAILY cetirizine (All Day Allergy (cetirizine)) 10 mg PO DAILY PRN 90 days clobetasol 0.05% 1 appl topical BID clotrimazole-betamethasone 1-0.05 % 1 appl topical BID 2 weeks denosumab (Prolia) 60 mg subcut [id number] fluocinonide 0.05% 1 appl topical BID 30 days ketoconazole 2% 1 appl topical BID 30 days omeprazole 20 mg PO DAILY 90 days HPI Comments Details: Patient is a 70-year-old female with GERD, osteoporosis and seronegative rh eumatoid arthritis here today for follow up Interval History: Patient last seen 02/24/25 with me - On Plaquenil 200 mg daily, methotrexate 10 mg daily, folic acid 5 mg daily, leucovorin 5 mg weekly and Prolia 60 mg every 6 months - Doing well overall. Gets intermittent pain and stiffness in her hands and her feet which is short-lived. - No falls or fractures since last visit. Received her Prolia injection 02/02/2025 - methotrexate stopped Today - On Plaquenil 200 mg daily and Prolia 60 mg every 6 months - doing well on the Plaquenil monotherapy without worsening joint pain - no falls or fractures Rheumatologic History: Seronegative rheumatoid arthritis diagnosed based on x-rays of hands, wrists, feet which showed erosions in 2016. Plaquenil Methotrexate - stopped 01/2025 Current Rheumatology Medication(s): Plaquenil 200 mg daily Prolia 60 mg every 6 months [facility] Medical History Macrocytosis Physical exam Hypovitaminosis D GERD (gastroesophageal reflux disease) Osteoporosis Seronegative rheumatoid arthritis Surgical History History of ear surgery Family History Father Medical history unknown Mother No problems noted. Brother No problems noted. Brother No problems noted. Sister No problems noted. Sister No problems noted. Sister No problems noted. Sister No problems noted. Son No problems noted. Daughter No problems noted. Social History Housing: House Alcohol intake: never Patient Tobacco Use Status: Never used Tobacco e-Cigarette/Vaping Use: Never Used Second Hand Smoke Exposure: No service: No Current occupational status: retired Cognitive needs: No Hearing needs: No Vision needs: No Review of Systems Const Details: Review of Systems Constitutional: Denies fever, chills, weight loss ENT: Denies vision changes, eye pain or eye redness, dental caries, dry mouth GI: Denies nausea, vomiting, diarrhea, abdominal pain, change in BM Pulm: Denies SOB, SCHROEDER, hemoptysis, wheezing Cards: Denies chest pain, palpitations Skin: Denies Raynaud's, rash, nail changes, photosensitivity, BRICKLAYER HELPER: Denies headaches, weakness, paresthesias, recurrent falls MSK: as per HPI All other systems reviewed and are unremarkable except noted above Physical Exam Exam Exam: Vital signs reviewed Physical Examination CONSTITUITIONAL Patient alert and cooperative. Well appearing and in no apparent painful distress MSK Hands * Right Hand: Able to make a fist. No swelling or tenderness to palpation of the MCPs, PIPs or DIPs. * Left Hand: Able to make a fist. No swelling or tenderness to palpation of the MCPs, PIPs or DIPs. * Herbedens nodes noted bilaterally * Prominent synovial hypertrophy of the MCPs bilaterally with ulnar deviation. Reducible swan-neck deformities of the 5th digit bilaterally Wrists * Right Wrist: Fixed, with little to no ROM. No swelling or TTP * Left Wrist: Fixed, with little to no ROM. No swelling or TTP Elbows * Right Elbow: Full ROM. No swelling or TTP. No TTP of the medial epicondyle. No TTP of the lateral epicondyle * Left Elbow: Full ROM. No swelling or TTP. No TTP of the medial epicondyle. No TTP of the lateral epicondyle Shoulders * Right shoulder: No swelling noted. No TTP of the AC joint. No TTP of the subacromial bursa. No TTP of the posterior shoulder * Left shoulder: No swelling noted. No TTP of the AC joint. No TTP of the subacromial bursa. No TTP of the posterior shoulder Knees * Right knee: Full ROM. No swelling noted. No TTP of the knee joint line. No TTP of pes anserine bursa * Left knee: Full ROM. No swelling noted. No TTP of the knee joint line. No TTP of pes anserine bursa. * Crepitations felt bilaterally Ankles * Right ankle: Good ankle dorsiflexion and plantar flexion. No swelling. No TTP of the ankle joint * Left ankle: Good ankle dorsiflexion and plantar flexion. No swelling. No TTP of the ankle joint Feet * Right foot: Negative squeeze test * Left foot: Negative squeeze test Tender points? * No tenderness to palpation of the bilateral trapezius, supraspinatus, anterior costochondral junctions, bilateral suboccipital muscle insertions SKIN No rashes Vital Signs: Last Vital Signs Pulse 62 08/25/25 09:46 BP 134/82 08/25/25 09:46 Pulse Ox 98 08/25/25 09:46 Oxygen Delivery Method Room Air 08/25/25 09:46 BMI result Body Mass Index 23.5 Office Meds Prolia 60 mg/mL subcutaneous syringe Performing Provider: Lucy Porter MD Per[facility] Administered by: Gary Jean RN on 08/25/25 10:04 Dose Route Admin Location Dispensed Lot Number Expiration Date [facility] Licensing Analyst 60 mg subcut 1 mL [id number] 01/29/28 97957-991-20 [employer] Total Dispensed Waste 1 mL 0 % Comments: Patient presents for Prolia injection obtained from the [facility]. The patient has not had any recent fever or illness. The injection site to be used is without erythema, edema, and is clean, dry, and intact. We talked about the post-injection precautions. The patient tolerated the procedure well. Results Reviewed Results Reviewed: 08/18/25 Lord D. WBC 4.3 Hb 12.8 Plt 231 BUN 19 Cr 0.70 eGFR 93 AST 28 ALT 18 ESR 17 CRP <3.0 Vit D 91 Hep B NR Hep C Neg Tb Positive Assessment & Plan Assessment & Plan (1) Seronegative rheumatoid arthritis: Comment: MTX increased from 15 to 20 mg 10/2022 Code(s): M06.00 - Rheumatoid arthritis without rheumatoid factor, unspecified site Category: Medical Plan: #Seronegative Erosive RA Patient is a 69-year-old female with seronegative erosive rheumatoid arthritis here today for follow up. Patient doing well on Plaquenil monotherapy without any active synovitis today. We will continue keeping her on low-dose Plaquenil given her history of erosive disease Patient can continue to take Celebrex 1 tablet every other day for her osteoarthritis Plan - Hydroxychloroquine 200mg daily - Celebrex 200mg every other day - RTC 6 months - Labs before visit: CBC, CMP, ESR, CRP, vit D (2) Latent tuberculosis: Code(s): Z22.7 - Latent tuberculosis Plan: #?Latent Tb Positive TB test. We will check x-rays (3) Osteoporosis: Comment: DEXA 03/2021: AP Spine -3.2, Left femur neck -2.0, Left femur total -2.0 Prolia started 2016 DEXA 05/2023: AP Spine -3.1, Left femur neck -2.0, Left femur total -2.1 DEXA 05/2025: AP Spine -2.9, Left femur neck -0.9 Code(s): M81.0 - Age-related osteoporosis without current pathological fracture Category: Medical Qualifiers: Osteoporosis type: age-related Presence of current pathological fracture: without current pathological fracture Qualified Code(s): M81.0 - Age- related osteoporosis without current pathological fracture Plan: #Osteoporosis Patient with osteoporosis of the spine and osteopenia of the hip. Currently on Prolia. Most recent bone density improved overall Plan - Stop high dose Vit D. 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 Plan: #Long-term Use of Hydroxychloroquine Discussed with patient the risks and benefits of hydroxychloroquine in managing the rheumatic condition Benefits include: - Reduced pain, reduce mortality, maintenance of remission and reduction of flares Risks include: - GI upset, skin hyperpigmentation, retinal toxicity (especially after more than 5 years of use), myopathy Advised yearly ophthalmology visits Plan I spent 32 minutes reviewing the record and labs, taking a history, examining t he patient, discussing the treatment plan, ordering diagnostic work up and documenting in the medical record Orders: Orders AMB Denosumab Injection Patient Supplied Today M81.0 - Age-related osteoporosis without current pathological fracture Medications: New hydroxychloroquine (Plaquenil) 200 mg PO DAILY 90 tabs 1RF M06.00 - Rheumatoid arthritis without rheumatoid factor, unspecified site cholecalciferol (vitamin D3) 25 mcg PO DAILY 90 tabs 1RF E55.9 - Vitamin D deficiency, unspecified Refilled celecoxib 200 mg PO DAILY 90 caps 1RF M06.00 - Rheumatoid arthritis without rheumatoid factor, unspecified site Discontinued hydroxychloroquine Discontinued Reason: Doctor's Order 200 mg PO DAILY 90 tabs 1RF M06.00 - Rheumatoid arthritis without rheumatoid factor, unspecified site, Z79.899 - 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
[2025-08-25 09:46] VITALS: BP 134/82; PULSE 62; O2SAT 98; BMI 23.5
--- OUTSIDE RECORDS SUMMARY | 2025-08-25 10:34 | XMS_ITS | Encounter Summary ---
Author Organization [employer] Address [address] [place] [address] Care Team Providers Care Tissue Technician Name Role Phone Unavailable Primary Care Provider Unavailabl e Reason for Visit * Reason Onset Date Comments appt/active request 11/01/2024 Encounter Details Date Type Department Care Team (Late st Contact Info) Description 11/01/2024 Telephone [facility] [address] [place] [address] August Alexandre, ONEIDA [address] [place] [address] appt/active request Social History Tobacco Use Types [...] Care Team (Late st Contact Info) Description 09/08/2025 9:00 AM EDT Office Visit [facility] [address] [place] [address] August Alexandre, DMD [address] [place] [address] documented as of this encounter Visit Diagnoses Not on filedocumented in this encounter
--- OUTSIDE RECORDS SUMMARY | 2025-08-25 10:34 | XMS_ITS | Clinical Summary ---
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 Amador). Vitamin D deficiency 03/11/2018 Rheumatoid arthritis 11/05/2016 Overview (01/21/2025): Removal Reason: revised Social History Tobacco Use Types Packs/Day Years [...] Description 09/08/2025 9:00 AM EDT Office Visit [facility] [address] [place] [address] August Alexandre, DMD [address] [place] [address] Health Maintenance Due Date Last Done Comments CT Colonography 1955 Colonoscopy 1955 Colorectal Cancer Screening 1955 Dental Prophylaxis 1955 Dental X-Ray: Bitewings 1955 Depression Screening 1955 FIT DNA/Cologuard 1955 FIT 1955 FOBT 1955 SDOH Screening 1955 Sigmoidoscopy 1955 Alcohol/Substance Use Screening 1967 Hepatitis C Screening 1973 Pneumococcal Vaccine: 50+ Years (1 of 1 - PCV) 2005 Zoster Vaccines (1 of 2) 2005 Dental Oral Exam 03/08/2025 09/06/2024 COVID-19 Vaccine ( - 2023- season) 2025 Influenza Vaccine (#1) 2025 7, 11/05/2016, 09/18/2015, Additional history exists Tobacco Screening 02/07/2026 02/07/2025 Mammogram 03/08/2026 03/08/2024, [...] patient's age to complete this topic Meningococcal B Vaccine Aged Out No l onger eligible based on patient's age to complete [...] Procedure Name Priority Date/Time Associated Diagnosis Comments PANORAMIC RADIOGRAPHIC IMAGE Routine 09/06/2024 10:30 AM EDT PERIODIC ORAL EVALUATION - ESTABLISHED PATIENT Routine 09/06/2024 10:30 AM EDT from Last 3 Months or Most Recently Relevant to Health Maintenance Insurance DENTAL - [facility]SN FULL (MEDICAID)
== END 2025-08-25 10:24 | disposition home or self-care (01) ==
LOC: HO.RHES 09:24
PROVIDERS: PCP Pediatrics; Visit Provider Student in an Organized Health Care Education/Training Program
DX: M06.00 Rheumatoid arthritis without rheumatoid factor, unspecified site (principal); Z22.7 Latent tuberculosis; M81.0 Age-related osteoporosis without current pathological fracture; Z51.81 Encounter for therapeutic drug level monitoring; Z79.620 Long term (current) use of immunosuppressive biologic; Z79.899 Other long term (current) drug therapy
CPT/HCPCS: 99214; G2211

== ENCOUNTER → 2025-08-25 11:07 | Outpatient (BNV) | payer MEDICARE, MEDICAID, SELFPAY | PROVIDERS: PCP Pediatrics; Visit Provider Radiology Diagnostic Radiology | DX: R76.11 Nonspecific reaction to tuberculin skin test without active tuberculosis (principal) | CPT/HCPCS: 71046 ==